=== PATIENT | male | born 1965 | race American Indian/Alaskan Native ===

== ENCOUNTER 2019-09-12 16:48 | Inpatient (IN) | payer MEDICAID ==
[2019-09-12] MEDS ORDERED: Sodium Chloride 0.9% 1,000 ML IV ONE ×2 (17:21→19:10)
[2019-09-12] MEDS ORDERED: Clindamycin Phosphate 900 MG in Sodium Chloride 0.9% 100 ML IV ONE (17:21)
--- NOTE | 2019-09-12 17:25 | EDM.PDOC ---
ED HPI GENERAL MEDICAL PROBLEM - General Chief Complaint: Skin Complaint Stated Complaint: AMB Time Seen by Provider: 09/12/19 17:22 Source of Information: Reports: Patient History Limitations: Reports: No Limitations - History of Present Illness INITIAL COMMENTS - FREE TEXT/NARRATIVE: c/o open sore on right foot ankle area from poorly fitting shoe while in skilled nursing. Right Foot Pain Score (Numeric/FACES): 8 - Related Data Allergies Allergy/AdvReac Type Severity Reaction Status Date / Time No Known Allergies Allergy Verified 09/12/19 17:05 Home Meds: Home Meds Aspirin [Ecotrin] 81 mg PO DAILY 06/11/18 [History] Carvedilol [Coreg] 25 mg PO DAILY 06/11/18 [History] Furosemide [Lasix] 20 mg PO DAILY 06/11/18 [History] Insulin Detemir [Levemir Flextouch] 50 units SQ BID 06/11/18 [History] Levothyroxine Sodium [Synthroid] 150 mcg PO DAILY 06/11/18 [History] Lisinopril 20 mg PO DAILY 06/11/18 [History] Pioglitazone HCl [Actos] 30 mg PO DAILY 06/11/18 [History] atorvaSTATin [Lipitor] 20 mg PO DAILY 06/11/18 [History] metFORMIN HCl [Metformin HCl] 1,000 mg PO BID 06/11/18 [History] Gabapentin [Neurontin] 300 mg PO BID 09/12/19 [History] Insulin Aspart [NovoLOG] 22 units SQ TID 09/12/19 [History] Past Medical History HEENT History: Reports: None Cardiovascular History: Reports: Heart Failure, High Cholesterol, Hypertension, Other (See Below) Other Cardiovascular History: CARDIAC PACEMAKER PLACED 03/2009. ISCHEMIC VASCULAR DISEASE. LV DYSFUNCTION Respiratory History: Reports: None Gastrointestinal History: Reports: None Genitourinary History: Reports: None Musculoskeletal History: Reports: Arthritis Neurological History: Reports: None Psychiatric History: Reports: None Endocrine/Metabolic History: Reports: Diabetes, Type II Hematologic History: Reports: None Immunologic History: Reports: None Oncologic (Cancer) History: Reports: None Dermatologic History: Reports: None - Infectious Disease History Infectious Disease History: Reports: None - Past Surgical History Cardiovascular Surgical History: Reports: Pacer Other Cardiovascular Surgeries/Procedures: PACEMAKER PLACED 03/2009 GI Surgical History: Reports: Colonoscopy Social & Family History - Family History Family Medical History: Noncontributory - Tobacco Use Smoking Status *Q: Never Smoker Second Hand Smoke Exposure: No - Caffeine Use Caffeine Use: Reports: Coffee - Recreational Drug Use Recreational Drug Use: No ED ROS GENERAL - Review of Systems Review Of Systems: Comprehensive ROS is negative, except as noted in HPI. ED EXAM, SKIN/RASH Exam: See Below Exam Limited By: No Limitations General Appearance: Alert, WD/WN, Mild Distress, Other (discomfort) Ears: Hearing Grossly Normal Throat/Mouth: Normal Voice, No Airway Compromise Head: Atraumatic Neck: Non-Tender, Full Range of Motion Respiratory/Chest: No Respiratory Distress Cardiovascular: Regular Rate, Rhythm GI/Abdominal: Soft, Non-Tender Extremities: Other (right ankle-foot cellulitis open dried wound, NV wnl, gait limited to pain) Neurological: Alert (wnl, gait limited to pain) Psychiatric: Flat Affect Location, Skin: Lower Extremity, Right Characteristics: Erythematous Associated features: Tenderness, Swelling, Lymphangitis, Inflammation Lymphatic: No Adenopathy Course - Vital Signs Last Recorded V/S: Last Vital Signs Temp 36.3 C 09/12/19 16:56 Pulse 99 09/12/19 16:56 Resp 22 H 09/12/19 16:56 BP 110/69 09/12/19 16:56 Pulse Ox 97 09/12/19 16:56 - Orders/Labs/Meds Orders: Active Orders 24 hr Category Date Time Status Foot w Cont Rt [CT] Urgent Exams 09/12/19 18:17 Taken CULTURE BLOOD [BC] Stat Lab 09/12/19 17:29 Received Piperacillin/Tazobactam [Zosyn] 3.375 gm Med 09/12/19 19:53 Ordered Sodium Chloride 0.9% [Normal Saline] 100 ml IV ONETIME Sodium Chloride 0.9% [Normal Saline] 1,000 ml Med 09/12/19 19:10 Active IV .BOLUS Vancomycin 1 gm Med 09/12/19 19:53 Ordered Sodium Chloride 0.9% [Normal Saline] 250 ml IV ONETIME Medication Orders Sodium Chloride (Normal Saline) 1,000 mls @ 999 mls/hr IV .BOLUS ONE Stop: 09/12/19 20:10 Last Admin: 09/12/19 19:14 Dose: 999 mls/hr Labs: Laboratory Tests 09/12/19 09/12/19 09/12/19 Range/Units 17:29 17:29 17:29 WBC 19.4 H (5.0-10.0) 10^3/uL RBC 4.69 (4.6-6.2) 10^6/uL Hgb 12.8 L D (14.0-18.0) g/dL Hct 38.1 L (40.0-54.0) % MCV 81.2 D (80-100) fL MCH 27.3 (27.0-34.0) pg MCHC 33.6 (33.0-35.0) g/dL Plt Count 166 (150-450) 10^3/uL Neut % (Auto) 85.8 H (42.2-75.2) % Lymph % (Auto) 4.3 L (20.5-50.1) % [place] % (Auto) 9.4 H (2-8) % Eos % (Auto) 0.1 L (1.0-3.0) % Baso % (Auto) 0.4 (0.0-1.0) % Add Manual Diff Yes Neutrophils % (Manual) 78 H (42-75) % Band Neutrophils % 9 % Lymphocytes % (Manual) 6 L (20-50) % Monocytes % (Manual) 7 (2-8) % Sodium 132 L (135-145) mmol/L Potassium 4.0 (3.6-5.0) mmol/L Chloride 97 L (101-111) mmol/L Carbon Dioxide 24.0 (21.0-31.0) mmol/L Anion Gap 15.0 BUN 15 (7-18) mg/dL Creatinine 1.0 (0.6-1.3) mg/dL Est Cr Clr Drug Dosing 92.69 mL/min Estimated GFR (MDRD) > 60 BUN/Creatinine Ratio 15.00 Glucose 364 H (74-105) mg/dL Lactic Acid 2.5 H* (0.5-2.0) mmol/L Calcium 8.1 L (8.4-10.2) mg/dl Total Bilirubin 1.3 H (0.2-1.0) mg/dL AST 25 (10-42) IU/L ALT 15 (10-60) IU/L Alkaline Phosphatase 92 (42-121) IU/L Total Protein 6.6 L (6.7-8.2) g/dl Albumin 2.9 L (3.2-5.5) g/dl Globulin 3.7 Albumin/Globulin Ratio 0.78 Meds: Medications Generic Name Dose Route Start Last Admin Trade Name Freq PRN Reason Stop Dose Admin Sodium Chloride 1,000 mls @ 999 mls/hr 09/12/19 19:10 09/12/19 19:14 Normal Saline IV 09/12/19 20:10 999 mls/hr .BOLUS ONE Administration Discontinued Medications Generic Name Dose Route Start Last Admin Trade Name Jamelq PRN Reason Stop Dose Admin Clindamycin Phosphate 900 mg/ 106 mls @ 200 mls/hr 09/12/19 17:21 09/12/19 17 :42 Sodium Chloride IV 09/12/19 17:52 200 mls/hr ONETIME ONE Administration Sodium Chloride 1,000 mls @ 999 mls/hr 09/12/19 17:21 09/12/19 17:46 Normal Saline IV 09/12/19 18:21 Not Given .BOLUS ONE Iopamidol 100 ml 09/12/19 18:16 09/12/19 18:31 Isovue-300 (61%) IVPUSH 09/12/19 18:17 100 ml ONETIME ONE Administration - Re-Assessments/Exams Free Text/Narrative Re-Assessment/Exam: 09/12/19 19:[address] Piña who kindly admitted pt Departure - Departure Time of Disposition: 19:54 Disposition: Admitted As Inpatient 66 Condition: Fair Clinical Impression: Cellulitis Qualifiers: Site of cellulitis: extremity Site of cellulitis of extremity: lower extremity Laterality: right Qualified Code(s): L03.115 - Cellulitis of right lower limb - Discharge Information Forms: ED Department Discharge Sepsis Event Note - Evaluation Sepsis Screening Result: Possible Severe Sepsis Risk - Focused Exam Vital Signs: Vital Signs Temp Pulse Resp BP Pulse Ox 09/12/19 16:56 36.3 C 99 22 H 110/69 97 Date Exam was Performed: 09/12/19 Time Exam was Performed: 19:54 - My Orders Last 24 Hours: My Active Orders 09/12/19 17:29 CULTURE BLOOD [BC] Stat 09/12/19 18:17 Foot w Cont Rt [CT] Urgent 09/12/19 19:10 Sodium Chloride 0.9% [Normal Saline] 1,000 ml IV .BOLUS 09/12/19 19:53 Piperacillin/Tazobactam [Zosyn] 3.375 gm Sodium Chloride 0.9% [Normal Saline] 100 ml IV ONETIME Vancomycin 1 gm Sodium Chloride 0.9% [Normal Saline] 250 ml IV ONETIME - Assessment/Plan Last 24 Hours: My Active Orders 09/12/19 17:29 CULTURE BLOOD [BC] Stat 09/12/19 18:17 Foot w Cont Rt [CT] Urgent 09/12/19 19:10 Sodium Chloride 0.9% [Normal Saline] 1,000 ml IV .BOLUS 09/12/19 19:53 Piperacillin/Tazobactam [Zosyn] 3.375 gm Sodium Chloride 0.9% [Normal Saline] 100 ml IV ONETIME Vancomycin 1 gm Sodium Chloride 0.9% [Normal Saline] 250 ml IV ONETIME
[2019-09-12 17:55] LABS: CHLORIDE,CL 97 mmol/L (101-111); SODIUM,NA 132 mmol/L (135-145)
[2019-09-12] MEDS ORDERED: Iopamidol 612 MG/ML 100 ML Bottle IVPUSH ONE (18:16)
[2019-09-12] MEDS ORDERED: Piperacillin/Tazobactam 3.375 GM in Sodium Chloride 0.9% 100 ML IV ONE (19:53)
[2019-09-12] MEDS ORDERED: fentaNYL 100 MCG/2 ML SDV IVPUSH PRN (21:17)
[2019-09-12] MEDS ORDERED: Ondansetron 4 MG/2 ML SDV IV PRN (21:17)
[2019-09-12] MEDS ORDERED: Sodium Chloride 0.9% 10 ML Syringe FLUSH PRN (21:18)
--- NOTE | 2019-09-12 21:44 | PCM.HP ---
H&P History of Present Illness - General Date of Service: 09/12/19 Admit Problem/Dx: Admission Diagnosis/Problem Admission Diagnosis/Problem Sepsis Source of Information: Patient History Limitations: Reports: No Limitations - History of Present Illness Initial Comments - Free Text/Narative: 54 yo M with PMH of DM2, HTN who presents with right lateral malleolus wound. Wound is chronic and has been ongoing for the past three weeks. Wound was caused by tight footwear that caused skin abrasion according to the patient. In the last two days, the wound has worsened with black discoloration over the wound and redness, swelling and pain in the surrounding skin. No fever, chills, chest pain, SOB, abdominal pain, n/v, urinary symptoms. In the ED, patient was found to have marked leucocytosis and broad spectrum abx were started. Right Foot Pain Score (Numeric/FACES): 8 - Related Data Allergies/Adverse Reactions: Allergies Allergy/AdvReac Type Severity Reaction Status Date / Time No Known Allergies Allergy Verified 09/12/19 20:42 Home Medications: Home Meds Aspirin [Ecotrin] 81 mg PO DAILY 06/11/18 [History] Carvedilol [Coreg] 25 mg PO DAILY 06/11/18 [History] Furosemide [Lasix] 20 mg PO DAILY 06/11/18 [History] Insulin Detemir [Levemir Flextouch] 50 units SQ BID 06/11/18 [History] Levothyroxine Sodium [Synthroid] 150 mcg PO DAILY 06/11/18 [History] Lisinopril 20 mg PO DAILY 06/11/18 [History] Pioglitazone HCl [Actos] 30 mg PO DAILY 06/11/18 [History] atorvaSTATin [Lipitor] 20 mg PO DAILY 06/11/18 [History] metFORMIN HCl [Metformin HCl] 1,000 mg PO BID 06/11/18 [History] Gabapentin [Neurontin] 300 mg PO TID 09/12/19 [History] Insulin Aspart [NovoLOG] 22 units SQ TID 09/12/19 [History] Past Medical History HEENT History: Reports: None Cardiovascular History: Reports: Heart Failure, High Cholesterol, Hypertension, Other (See Below) Other Cardiovascular History: CARDIAC PACEMAKER PLACED 03/2009. ISCHEMIC VASCULAR DISEASE. LV DYSFUNCTION Respiratory History: Reports: None Gastrointestinal History: Reports: None Genitourinary History: Reports: None Musculoskeletal History: Reports: Arthritis Neurological History: Reports: None Psychiatric History: Reports: None Endocrine/Metabolic History: Reports: Diabetes, Type II Hematologic History: Reports: None Immunologic History: Reports: None Oncologic (Cancer) History: Reports: None Dermatologic History: Reports: None - Infectious Disease History Infectious Disease History: Reports: None - Past Surgical History Cardiovascular Surgical History: Reports: Pacer Other Cardiovascular Surgeries/Procedures: PACEMAKER PLACED 03/2009 GI Surgical History: Reports: Colonoscopy Social & Family History - Family History Family Medical History: Noncontributory - Tobacco Use Smoking Status *Q: Former Smoker Years of Tobacco use: 1 Packs/Tins Daily: 1 Used Tobacco, but Quit: Yes Month/Year Tobacco Last Used: Second Hand Smoke Exposure: Yes - Caffeine Use Caffeine Use: Reports: None - Recreational Drug Use Recreational Drug Use: No H&P Review of Systems - Review of Systems: Review Of Systems: See Below General: Reports: No Symptoms HEENT: Reports: No Symptoms Pulmonary: Reports: No Symptoms Cardiovascular: Reports: No Symptoms Gastrointestinal: Reports: No Symptoms Genitourinary: Reports: No Symptoms Musculoskeletal: Reports: Other (right ankle wound) Skin: Reports: Wound Psychiatric: Reports: No Symptoms Neurological: Reports: No Symptoms Exam - Exam Exam: See Below - Vital Signs Vital Signs: Last Vital Signs Temp 36.4 C 09/12/19 20:26 Pulse 87 09/12/19 20:26 Resp 16 09/12/19 20:26 BP 113/74 09/12/19 20:26 Pulse Ox 98 09/12/19 20:26 Weight: 93.213 kg - Exam General: Alert, Oriented HEENT: Conjunctiva Clear, EACs Clear Neck: Supple, Trachea Midline Lungs: Clear to Auscultation, Normal Respiratory Effort Cardiovascular: Regular Rate, Regular Rhythm GI/Abdominal Exam: Normal Bowel Sounds, Soft, Non-Tender Extremities: Other (right lateral malleolus wound with eschar over the wound surface and surrounding cellulitis) Skin: Wound (right lateral malleolus wound with eschar over the wound surface and surrounding cellulitis) - Patient Data Lab Results Last 24 hrs: Laboratory Results - last 24 hr 09/12/19 09/12/19 09/12/19 Range/Units 17:29 17:29 17:29 WBC 19.4 H (5.0-10.0) 10^3/uL RBC 4.69 (4.6-6.2) 10^6/uL Hgb 12.8 L D (14.0-18.0) g/dL Hct 38.1 L (40.0-54.0) % MCV 81.2 D (80-100) fL MCH 27.3 (27.0-34.0) pg MCHC 33.6 (33.0-35.0) g/dL Plt Count 166 (150-450) 10^3/uL Neut % (Auto) 85.8 H (42.2-75.2) % Lymph % (Auto) 4.3 L (20.5-50.1) % [place] % (Auto) 9.4 H (2-8) % Eos % (Auto) 0.1 L (1.0-3.0) % Baso % (Auto) 0.4 (0.0-1.0) % Add Manual Diff Yes Neutrophils % (Manual) 78 H (42-75) % Band Neutrophils % 9 % Lymphocytes % (Manual) 6 L (20-50) % Monocytes % (Manual) 7 (2-8) % Sodium 132 L (135-145) mmol/L Potassium 4.0 (3.6-5.0) mmol/L Chloride 97 L (101-111) mmol/L Carbon Dioxide 24.0 (21.0-31.0) mmol/L Anion Gap 15.0 BUN 15 (7-18) mg/dL Creatinine 1.0 (0.6-1.3) mg/dL Est Cr Clr Drug Dosing 92.69 mL/min Estimated GFR (MDRD) > 60 BUN/Creatinine Ratio 15.00 Glucose 364 H (74-105) mg/dL POC Glucose (70-105) mg/dl Lactic Acid 2.5 H* (0.5-2.0) mmol/L Calcium 8.1 L (8.4-10.2) mg/dl Total Bilirubin 1.3 H (0.2-1.0) mg/dL AST 25 (10-42) IU/L ALT 15 (10-60) IU/L Alkaline Phosphatase 92 (42-121) IU/L Total Protein 6.6 L (6.7-8.2) g/dl Albumin 2.9 L (3.2-5.5) g/dl Globulin 3.7 Albumin/Globulin Ratio 0.78 09/12/19 Range/Units 20:53 WBC (5.0-10.0) 10^3/uL RBC (4.6-6.2) 10^6/uL Hgb (14.0-18.0) g/dL Hct (40.0-54.0) % MCV (80-100) fL MCH (27.0-34.0) pg MCHC (33.0-35.0) g/dL Plt Count (150-450) 10^3/uL Neut % (Auto) (42.2-75.2) % Lymph % (Auto) (20.5-50.1) % [place] % (Auto) (2-8) % Eos % (Auto) (1.0-3.0) % Baso % (Auto) (0.0-1.0) % Add Manual Diff Neutrophils % (Manual) (42-75) % Band Neutrophils % % Lymphocytes % (Manual) (20-50) % Monocytes % (Manual) (2-8) % Sodium (135-145) mmol/L Potassium (3.6-5.0) mmol/L Chloride (101-111) mmol/L Carbon Dioxide (21.0-31.0) mmol/L Anion Gap BUN (7-18) mg/dL Creatinine (0.6-1.3) mg/dL Est Cr Clr Drug Dosing mL/min Estimated GFR (MDRD) BUN/Creatinine Ratio Glucose (74-105) mg/dL POC Glucose 308 H (70-105) mg/dl Lactic Acid (0.5-2.0) mmol/L Calcium (8.4-10.2) mg/dl Total Bilirubin (0.2-1.0) mg/dL AST (10-42) IU/L ALT (10-60) IU/L Alkaline Phosphatase (42-121) IU/L Total Protein (6.7-8.2) g/dl Albumin (3.2-5.5) g/dl Globulin Albumin/Globulin Ratio Result Diagrams: 09/12/19 17:29 09/12/19 17:29 Problem List Initiated/Reviewed/Updated: Yes Orders Last 24hrs: Active Orders 24 hr Category Date Time Status Admission Diagnosis [ADT] Stat ADT 09/12/19 19:56 Ordered Patient Status [ADT] Routine ADT 09/12/19 21:18 Active Accu Check [Blood Glucose Check, Bedside] [RC] Care 09/12/19 21:18 Active QIDACANDBED Ambulate [RC] ASDIRECTED Care 09/12/19 21:18 Active Height and Weight [RC] DAILY Care 09/12/19 21:18 Active Influenza Vaccine Charge [RC] .DISCHARGE Care 09/14/19 09:00 Active Oxygen Therapy [RC] PRN Care 09/12/19 21:18 Active Peripheral IV Care [RC] . DIRECTED Care 09/12/19 21:18 Active Up With Assistance [RC] ASDIRECTED Care 09/12/19 21:18 Active VTE/DVT Education [RC] PER UNIT ROUTINE Care 09/12/19 21:18 Active Vital Signs [RC] Q4H Care 09/12/19 21:18 Active Wound Care [RC] Q8H Care 09/12/19 21:26 Active Regular Diet [DIET] Diet 09/12/19 Breakfast Active Foot w Cont Rt [CT] Urgent Exams 09/12/19 18:17 Taken BASIC METABOLIC PANEL,BMP [CHEM] AM Lab 09/13/19 05:11 Ordered BASIC METABOLIC PANEL,BMP [CHEM] AM Lab 09/14/19 05:11 Ordered BASIC METABOLIC PANEL,BMP [CHEM] AM Lab 09/15/19 05:11 Ordered CBC W/O DIFF,HEMOGRAM [HEME] AM Lab 09/13/19 05:11 Ordered CBC W/O DIFF,HEMOGRAM [HEME] AM Lab 09/14/19 05:11 Ordered CBC W/O DIFF,HEMOGRAM [HEME] AM Lab 09/15/19 05:11 Ordered CULTURE BLOOD [BC] Stat Lab 09/12/19 17:29 Received CULTURE WOUND + SMEAR [RM] Routine Lab 09/12/19 21:33 Ordered LACTIC ACID [CHEM] Routine Lab 09/12/19 21:18 Ordered MAGNESIUM [CHEM] AM Lab 09/13/19 05:11 Ordered MAGNESIUM [CHEM] AM Lab 09/14/19 05:11 Ordered MAGNESIUM [CHEM] AM Lab 09/15/19 05:11 Ordered PHOSPHORUS [CHEM] AM Lab 09/13/19 05:11 Ordered PHOSPHORUS [CHEM] AM Lab 09/14/19 05:11 Ordered PHOSPHORUS [CHEM] AM Lab 09/15/19 05:11 Ordered Acetaminophen [Tylenol] Med 09/12/19 21:17 Active 650 mg PO Q4H PRN Aspirin [Halfprin] Med 09/13/19 09:00 Ordered 81 mg PO DAILY Enoxaparin [Lovenox] Med 09/13/19 09:00 Ordered 40 mg SUBCUT DAILY Furosemide [Lasix] Med 09/13/19 09:00 Ordered 20 mg PO DAILY Gabapentin [Neurontin] Med 09/13/19 09:00 Ordered 300 mg PO TID Insulin Aspart [NovoLOG] Med 09/13/19 09:00 Ordered 22 units SQ TID Insulin Detemir Med 09/12/19 21:30 Ordered 50 units SQ BID Insulin Lispro [HumaLOG] Med 09/13/19 07:00 Ordered See Protocol SUBCUT QIDACANDBED Levothyroxine Med 09/13/19 09:00 Ordered 150 mcg PO DAILY Ondansetron [Zofran] Med 09/12/19 21:17 Active 4 mg IV Q4H PRN Pharmacy to Dose - InFluenza V [Pharmacy to Dose - Med 09/14/19 09:00 Once InFluenza Vaccine] 1 each IM ONETIME ONE Piperacillin/Tazobactam [Zosyn] 3.375 gm Med 09/12/19 21:30 Ordered Sodium Chloride 0.9% [Normal Saline] 100 ml IV Q6H Sodium Chloride 0.9% [Normal Saline] 1,000 ml Med 09/12/19 21:30 Active IV ASDIRECTED Sodium Chloride 0.9% [Saline Flush] Med 09/12/19 21:18 Active 10 ml FLUSH ASDIRECTED PRN Sodium Chloride 0.9% [Saline Flush] Med 09/12/19 21:18 Active 10 ml FLUSH ASDIRECTED PRN atorvaSTATin [Lipitor] Med 09/13/19 09:00 Ordered 20 mg PO DAILY carvediloL [Coreg] Med 09/13/19 09:00 Ordered 25 mg PO DAILY fentaNYL [Sublimaze] Med 09/12/19 21:17 Active 25 mcg IVPUSH Q1H PRN lisinopriL [Prinivil] Med 09/13/19 09:00 Ordered 20 mg PO DAILY oxyCODONE Med 09/12/19 21:18 Active 5 mg PO Q4H PRN Peripheral IV Insertion Adult [OM.PC] Routine Oth 09/12/19 21:18 Ordered Saline Lock Insert [OM.PC] Routine Oth 09/12/19 21:18 Ordered Resuscitation Status Routine Resus Stat 09/12/19 21:18 Ordered Medication Orders Acetaminophen (Tylenol) 650 mg PO Q4H PRN PRN Reason: Pain/Fever Aspirin (Halfprin) 81 mg PO DAILY [facility] Atorvastatin Calcium (Lipitor) 20 mg PO DAILY [facility] Carvedilol (Coreg) 25 mg PO DAILY [facility] Enoxaparin Sodium (Lovenox) 40 mg SUBCUT DAILY [facility] Fentanyl (Sublimaze) 25 mcg IVPUSH Q1H PRN PRN Reason: Pain (severe 7-10) Furosemide (Lasix) 20 mg PO DAILY [facility] Gabapentin (Neurontin) 300 mg PO TID [facility] Sodium Chloride (Normal Saline) 1,000 mls @ 100 mls/hr IV ASDIRECTED JESUS ALBERTO Piperacillin Sod/Tazobactam (Sod 3.375 gm/ Sodium Chloride) 100 mls @ 200 mls/ hr IV Q6H [facility] Influenza Virus Vaccine (Pharmacy To Dose - Influenza Vaccine) 1 each IM ONETIME ONE Stop: 09/14/19 09:01 Insulin Human Lispro (Humalog) 0 unit SUBCUT QIDACANDBED [facility]; Protocol Levothyroxine Sodium (Levothyroxine) 150 mcg PO DAILY [facility] Lisinopril (Prinivil) 20 mg PO DAILY [facility] Non-Formulary Medication (Insulin Detemir) 50 units SQ BID [facility] Non-Formulary Medication (Insulin Aspart [Novolog]) 22 units SQ TID [facility] Ondansetron HCl (Zofran) 4 mg IV Q4H PRN PRN Reason: Nausea/Vomiting Oxycodone HCl (Oxycodone) 5 mg PO Q4H PRN PRN Reason: Pain (moderate 4-6) Sodium Chloride (Saline Flush) 10 ml FLUSH ASDIRECTED PRN PRN Reason: Keep Vein Open Sodium Chloride (Saline Flush) 10 ml FLUSH ASDIRECTED PRN PRN Reason: Keep Vein Open Assessment/Plan Comment:: #Cellulitis #Sepsis: leucocytosis, tachycardia, lactic acidosis #diabetic wound -f/u blood cx -f/u on report of CT scan: no osteomyelitis -check wound cx -IV abx: Vanc + Zosyn -IV fluid hydration -wound care: wet to dry dressing Q8 hrs -will monitor wound over the next few days and if it does not improve, will refer to plastic surgery #DM2 #Hyperglycemia -accuchecks, ISS -carb controlled diet -continue home insulin regimen -hold metformin, pioglitazone #HTN -continue lisinopril 20 mg daily [home medication] #Hypothyroidism -continue home dose of levothyroxine #DVT ppx -SC lovenox #Code status -FC
[2019-09-12] MEDS: Insulin Glarg,Human.Rec.Analog 100 Unit/ML SUBCUT SCH (21:57)
[2019-09-12] MEDS: Sodium Chloride 0.9% 1,000 ML IV SCH (22:16)
[2019-09-13] MEDS: Piperacillin/Tazobactam 3.375 GM in Sodium Chloride 0.9% 100 ML IV SCH ×4 (01:34→19:40)
[2019-09-13] MEDS: oxyCODONE 5 MG Tab PO PRN ×3 (01:40→21:22)
[2019-09-13 06:42] LABS: ANION GAP 12.6; CHLORIDE,CL 101 mmol/L (101-111); SODIUM,NA 134 mmol/L (135-145)
[2019-09-13] MEDS: Insulin Lispro 100 Units/ML 3 ML Vial SUBCUT SCH ×8 (08:55→21:21)
[2019-09-13] MEDS ORDERED: Carvedilol 25 MG Tab PO SCH (09:00)
[2019-09-13] MEDS: Sodium Chloride 0.9% 1,000 ML IV SCH ×2 (09:06→21:54)
[2019-09-13] MEDS: Gabapentin 300 MG Cap PO SCH ×3 (09:08→21:21)
[2019-09-13] MEDS: atorvaSTATin 20 MG Tab PO SCH (09:08)
[2019-09-13] MEDS: Lisinopril 20 MG Tab PO SCH (09:08)
[2019-09-13] MEDS: Levothyroxine 150 MCG Tab PO SCH (09:08)
[2019-09-13] MEDS: Furosemide 20 MG Tab PO SCH (09:09)
[2019-09-13] MEDS: Carvedilol 25 MG Tab PO SCH ×2 (09:10→17:57)
[2019-09-13] MEDS: Aspirin 81 MG Tab.EC PO SCH (09:11)
--- NOTE | 2019-09-13 10:56 | PCM.PN ---
- General Info Date of Service: 09/13/19 Admission Dx/Problem (Free Text): Admission Diagnosis/Problem Admission Diagnosis/Problem Sepsis Subjective Update: Patient seen and examined Leucocytosis improved from admission Getting abx and wound dressing No chest pain, no fever, no SOB - Review of Systems General: Denies: Fever HEENT: Reports: No Symptoms Pulmonary: Reports: No Symptoms Cardiovascular: Reports: No Symptoms Gastrointestinal: Reports: No Symptoms Genitourinary: Reports: No Symptoms Musculoskeletal: Reports: Leg Pain Skin: Reports: Rash Neurological: Reports: No Symptoms Psychiatric: Reports: No Symptoms - Patient Data Vitals - Most Recent: Last Vital Signs Temp 37.3 C 09/13/19 07:34 Pulse 103 H 09/13/19 09:10 Resp 18 09/13/19 07:34 BP 107/72 09/13/19 09:10 Pulse Ox 97 09/13/19 07:34 Weight - Most Recent: 94.489 kg I&O - Last 24 Hours: Intake & Output 09/12/19 09/13/19 09/13/19 22:59 06:59 14:59 Intake Total 1600 1152 340 Output Total 680 Balance 1600 472 340 Lab Results Last 24 Hours: Laboratory Results - last 24 hr 09/12/19 09/12/19 09/12/19 Range/Units 17:29 17:29 17:29 WBC 19.4 H (5.0-10.0) 10^3/uL RBC 4.69 (4.6-6.2) 10^6/uL Hgb 12.8 L D (14.0-18.0) g/dL Hct 38.1 L (40.0-54.0) % MCV 81.2 D (80-100) fL MCH 27.3 (27.0-34.0) pg MCHC 33.6 (33.0-35.0) g/dL Plt Count 166 (150-450) 10^3/uL Neut % (Auto) 85.8 H (42.2-75.2) % Lymph % (Auto) 4.3 L (20.5-50.1) % [place] % (Auto) 9.4 H (2-8) % Eos % (Auto) 0.1 L (1.0-3.0) % Baso % (Auto) 0.4 (0.0-1.0) % Add Manual Diff Yes Neutrophils % (Manual) 78 H (42-75) % Band Neutrophils % 9 % Lymphocytes % (Manual) 6 L (20-50) % Monocytes % (Manual) 7 (2-8) % Sodium 132 L (135-145) mmol/L Potassium 4.0 (3.6-5.0) mmol/L Chloride 97 L (101-111) mmol/L Carbon Dioxide 24.0 (21.0-31.0) mmol/L Anion Gap 15.0 BUN 15 (7-18) mg/dL Creatinine 1.0 (0.6-1.3) mg/dL Est Cr Clr Drug Dosing 92.69 mL/min Estimated GFR (MDRD) > 60 BUN/Creatinine Ratio 15.00 Glucose 364 H (74-105) mg/dL POC Glucose (70-105) mg/dl Lactic Acid 2.5 H* (0.5-2.0) mmol/L Calcium 8.1 L (8.4-10.2) mg/dl Phosphorus (2.5-4.6) mg/dL Magnesium (1.8-2.5) mg/dL Total Bilirubin 1.3 H (0.2-1.0) mg/dL AST 25 (10-42) IU/L ALT 15 (10-60) IU/L Alkaline Phosphatase 92 (42-121) IU/L Total Protein 6.6 L (6.7-8.2) g/dl Albumin 2.9 L (3.2-5.5) g/dl Globulin 3.7 Albumin/Globulin Ratio 0.78 09/12/19 09/12/19 09/13/19 Range/Units 20:53 21:35 05:30 WBC 16.0 H (5.0-10.0) 10^3/uL RBC 4.40 L (4.6-6.2) 10^6/uL Hgb 12.0 L (14.0-18.0) g/dL Hct 35.6 L (40.0-54.0) % MCV 80.9 (80-100) fL MCH 27.3 (27.0-34.0) pg MCHC 33.7 (33.0-35.0) g/dL Plt Count 175 (150-450) 10^3/uL Neut % (Auto) (42.2-75.2) % Lymph % (Auto) (20.5-50.1) % [place] % (Auto) (2-8) % Eos % (Auto) (1.0-3.0) % Baso % (Auto) (0.0-1.0) % Add Manual Diff Neutrophils % (Manual) (42-75) % Band Neutrophils % % Lymphocytes % (Manual) (20-50) % Monocytes % (Manual) (2-8) % Sodium (135-145) mmol/L Potassium (3.6-5.0) mmol/L Chloride (101-111) mmol/L Carbon Dioxide (21.0-31.0) mmol/L Anion Gap BUN (7-18) mg/dL Creatinine (0.6-1.3) mg/dL Est Cr Clr Drug Dosing mL/min Estimated GFR (MDRD) BUN/Creatinine Ratio Glucose (74-105) mg/dL POC Glucose 308 H (70-105) mg/dl Lactic Acid 1.4 (0.5-2.0) mmol/L Calcium (8.4-10.2) mg/dl Phosphorus (2.5-4.6) mg/dL Magnesium (1.8-2.5) mg/dL Total Bilirubin (0.2-1.0) mg/dL AST (10-42) IU/L ALT (10-60) IU/L Alkaline Phosphatase (42-121) IU/L Total Protein (6.7-8.2) g/dl Albumin (3.2-5.5) g/dl Globulin Albumin/Globulin Ratio 09/13/19 09/13/19 Range/Units 05:30 07:50 WBC (5.0-10.0) 10^3/uL RBC (4.6-6.2) 10^6/uL Hgb (14.0-18.0) g/dL Hct (40.0-54.0) % MCV (80-100) fL MCH (27.0-34.0) pg MCHC (33.0-35.0) g/dL Plt Count (150-450) 10^3/uL Neut % (Auto) (42.2-75.2) % Lymph % (Auto) (20.5-50.1) % [place] % (Auto) (2-8) % Eos % (Auto) (1.0-3.0) % Baso % (Auto) (0.0-1.0) % Add Manual Diff Neutrophils % (Manual) (42-75) % Band Neutrophils % % Lymphocytes % (Manual) (20-50) % Monocytes % (Manual) (2-8) % Sodium 134 L (135-145) mmol/L Potassium 3.6 (3.6-5.0) mmol/L Chloride 101 (101-111) mmol/L Carbon Dioxide 24.0 (21.0-31.0) mmol/L Anion Gap 12.6 BUN 15 (7-18) mg/dL Creatinine 0.8 (0.6-1.3) mg/dL Est Cr Clr Drug Dosing 115.86 mL/min Estimated GFR (MDRD) > 60 BUN/Creatinine Ratio Glucose 274 H (74-105) mg/dL POC Glucose 225 H (70-105) mg/dl Lactic Acid (0.5-2.0) mmol/L Calcium 7.8 L (8.4-10.2) mg/dl Phosphorus 1.2 L (2.5-4.6) mg/dL Magnesium 1.7 L (1.8-2.5) mg/dL Total Bilirubin (0.2-1.0) mg/dL AST (10-42) IU/L ALT (10-60) IU/L Alkaline Phosphatase (42-121) IU/L Total Protein (6.7-8.2) g/dl Albumin (3.2-5.5) g/dl Globulin Albumin/Globulin Ratio Osmel Results Last 24 Hours: Microbiology 09/12/19 21:36 Gram Stain - Final Ankle, Right Med Orders - Current: Current Medications Acetaminophen (Tylenol) 650 mg PO Q4H PRN PRN Reason: Pain/Fever Aspirin (Halfprin) 81 mg PO DAILY [facility] Last Admin: 09/13/19 09:11 Dose: 81 mg Atorvastatin Calcium (Lipitor) 20 mg PO DAILY [facility] Last Admin: 09/13/19 09:08 Dose: 20 mg Carvedilol (Coreg) 12.5 mg PO BIDMEALS [facility] Last Admin: 09/13/19 09:10 Dose: 12.5 mg Enoxaparin Sodium (Lovenox) 40 mg SUBCUT DAILY [facility] Fentanyl (Sublimaze) 25 mcg IVPUSH Q1H PRN PRN Reason: Pain (severe 7-10) Furosemide (Lasix) 20 mg PO DAILY [facility] Last Admin: 09/13/19 09:09 Dose: 20 mg Gabapentin (Neurontin) 300 mg PO TID [facility] Last Admin: 09/13/19 09:08 Dose: 300 mg Sodium Chloride (Normal Saline) 1,000 mls @ 100 mls/hr IV ASDIRECTED [facility] Last Admin: 09/13/19 09:06 Dose: 100 mls/hr Piperacillin Sod/Tazobactam (Sod 3.375 gm/ Sodium Chloride) 100 mls @ 200 mls/ hr IV Q6H [facility] Last Admin: 09/13/19 08:58 Dose: 200 mls/hr Insulin Glargine (Lantus) 30 unit SUBCUT BEDTIME [facility] Insulin Human Lispro (Humalog) 0 unit SUBCUT QIDACANDBED [facility]; Protocol Insulin Human Lispro (Humalog) 22 unit SUBCUT TIDMEALS [facility] Last Admin: 09/13/19 08:55 Dose: 22 units Levothyroxine Sodium (Levothyroxine) 150 mcg PO DAILY [facility] Last Admin: 09/13/19 09:08 Dose: 150 mcg Lisinopril (Prinivil) 20 mg PO DAILY [facility] Last Admin: 09/13/19 09:08 Dose: 20 mg Ondansetron HCl (Zofran) 4 mg IV Q4H PRN PRN Reason: Nausea/Vomiting Oxycodone HCl (Oxycodone) 5 mg PO Q4H PRN PRN Reason: Pain (moderate 4-6) Last Admin: 09/13/19 09:50 Dose: 5 mg Sodium Chloride (Saline Flush) 10 ml FLUSH ASDIRECTED PRN PRN Reason: Keep Vein Open Sodium Phosphate (Neutra-Phos) 250 mg PO QID [facility] Discontinued Medications Carvedilol (Coreg) 25 mg PO DAILY [facility] Clindamycin Phosphate 900 mg/ (Sodium Chloride) 106 mls @ 200 mls/hr IV ONETIME ONE Stop: 09/12/19 17:52 Last Admin: 09/12/19 17:42 Dose: 200 mls/hr Sodium Chloride (Normal Saline) 1,000 mls @ 999 mls/hr IV .BOLUS ONE Stop: 09/12/19 18:21 Last Admin: 09/12/19 17:46 Dose: Not Given Sodium Chloride (Normal Saline) 1,000 mls @ 999 mls/hr IV .BOLUS ONE Stop: 09/12/19 20:10 Last Infusion: 09/12/19 20:16 Dose: Infused Piperacillin Sod/Tazobactam (Sod 3.375 gm/ Sodium Chloride) 100 mls @ 200 mls/ hr IV ONETIME ONE Stop: 09/12/19 20:22 Last Admin: 09/12/19 21:59 Dose: 200 mls/hr Vancomycin HCl 1 gm/ Sodium (Chloride) 250 mls @ 167 mls/hr IV ONETIME ONE Stop: 09/12/19 21:22 Last Admin: 09/12/19 20:18 Dose: 167 mls/hr Magnesium Sulfate/Dextrose 1 (gm/ Premix) 100 mls @ 100 mls/hr IV ONETIME ONE Stop: 09/13/19 09:31 Influenza Virus Vaccine (Afluria Quad 2019- (3yr Up)) 60 mcg IM .ONCE ONE Stop: 09/13/19 09:01 Insulin Glargine (Lantus) 50 unit SUBCUT BID [facility] Last Admin: 09/12/19 21:57 Dose: 50 units Iopamidol (Isovue-300 (61%)) 100 ml IVPUSH ONETIME ONE Stop: 09/12/19 18:17 Last Admin: 09/12/19 18:31 Dose: 100 ml Sodium Chloride (Saline Flush) 10 ml FLUSH ASDIRECTED PRN PRN Reason: Keep Vein Open - Exam General: Alert, Oriented HEENT: Pupils Equal Neck: Supple Lungs: Clear to Auscultation, Normal Respiratory Effort Cardiovascular: Regular Rate, Regular Rhythm GI/Abdominal Exam: Normal Bowel Sounds, Soft, Non-Tender Extremities: Redness Wound/Incisions: Dressing Dry and Intact Neurological: No New Focal Deficit Sepsis Event Note - Evaluation Sepsis Screening Result: Sepsis Risk - Focused Exam Vital Signs: Vital Signs Temp Pulse Pulse Resp BP BP BP 09/13/19 09:10 103 H 107/72 09/13/19 09:08 107/72 09/13/19 07:34 37.3 C 103 H 18 107/72 09/13/19 05:15 38.1 C 113 H 16 112/81 Pulse Ox 09/13/19 09:10 09/13/19 09:08 09/13/19 07:34 97 09/13/19 05:15 95 Date Exam was Performed: 09/13/19 Time Exam was Performed: 10:54 - Problem List Review Problem List Initiated/Reviewed/Updated: Yes - My Orders Last 24 Hours: My Active Orders 09/12/19 21:17 Acetaminophen [Tylenol] 650 mg PO Q4H PRN Ondansetron [Zofran] 4 mg IV Q4H PRN fentaNYL [Sublimaze] 25 mcg IVPUSH Q1H PRN 09/12/19 21:18 Patient Status [ADT] Routine Accu Check [Blood Glucose Check, Bedside] [RC] QIDACANDBED Height and Weight [RC] 0600 Oxygen Therapy [RC] PRN Peripheral IV Care [RC] VTE/DVT Education [RC] PER UNIT ROUTINE Vital Signs [RC] 04,08,12,16,20,00 Sodium Chloride 0.9% [Saline Flush] 10 ml FLUSH ASDIRECTED PRN oxyCODONE 5 mg PO Q4H PRN Peripheral IV Insertion Adult [OM.PC] Routine Saline Lock Insert [OM.PC] Routine Resuscitation Status Routine 09/12/19 21:26 Wound Care [RC] 05,13,21 09/12/19 21:30 Sodium Chloride 0.9% [Normal Saline] 1,000 ml IV ASDIRECTED 09/12/19 21:36 CULTURE WOUND + SMEAR [RM] Routine 09/13/19 02:00 Piperacillin/Tazobactam [Zosyn] 3.375 gm Sodium Chloride 0.9% [Normal Saline] 100 ml IV Q6H 09/13/19 07:00 Insulin Lispro [HumaLOG] See Protocol SUBCUT QIDACANDBED 09/13/19 08:00 carvediloL [Coreg] 12.5 mg PO BIDMEALS 09/13/19 09:00 Aspirin [Halfprin] 81 mg PO DAILY Enoxaparin [Lovenox] 40 mg SUBCUT DAILY Furosemide [Lasix] 20 mg PO DAILY Gabapentin [Neurontin] 300 mg PO TID Insulin Lispro [HumaLOG] 22 unit SUBCUT TIDMEALS Levothyroxine 150 mcg PO DAILY Phosphorus #1 [Neutra-Phos] 250 mg PO QID atorvaSTATin [Lipitor] 20 mg PO DAILY lisinopriL [Prinivil] 20 mg PO DAILY 09/13/19 21:00 Insulin Glarg,Human.Rec.Analog [LantUS] 30 unit SUBCUT BEDTIME 09/13/19 Breakfast Consistent Carbohydrate Diet [DIET] 09/14/19 05:11 BASIC METABOLIC PANEL,BMP [CHEM] AM CBC W/O DIFF,HEMOGRAM [HEME] AM MAGNESIUM [CHEM] AM PHOSPHORUS [CHEM] AM 09/14/19 09:00 Influenza Vaccine Charge [RC] .DISCHARGE 09/15/19 05:11 BASIC METABOLIC PANEL,BMP [CHEM] AM CBC W/O DIFF,HEMOGRAM [HEME] AM MAGNESIUM [CHEM] AM PHOSPHORUS [CHEM] AM - Plan Plan:: #Cellulitis #Sepsis POA: leucocytosis, tachycardia, lactic acidosis (resolved) #diabetic wound -f/u blood cx -CT scan: no osteomyelitis -check wound cx -IV abx: Vanc + Zosyn -IV fluid hydration -wound care: wet to dry dressing Q8 hrs -will monitor wound over the next few days and if it does not improve, will refer to plastic surgery #DM2 #Hyperglycemia -accuchecks, ISS -carb controlled diet -continue home insulin regimen -hold metformin, pioglitazone #HTN -continue lisinopril 20 mg daily [home medication] #Hypothyroidism -continue home dose of levothyroxine #DVT ppx -SC lovenox #Code status -FC
[2019-09-13] MEDS: Insulin Glarg,Human.Rec.Analog 100 Unit/ML SUBCUT SCH ×2 (11:03→21:48)
[2019-09-13] MEDS: Phosphorus #1 250 MG Tab PO SCH ×4 (11:23→21:48)
[2019-09-13] MEDS: Enoxaparin 40 MG/0.4 ML Syringe SUBCUT SCH (11:25)
[2019-09-13] MEDS: Acetaminophen 325 MG Tab PO PRN (21:24)
[2019-09-14] MEDS: Piperacillin/Tazobactam 3.375 GM in Sodium Chloride 0.9% 100 ML IV SCH ×4 (02:31→20:07)
[2019-09-14 06:52] LABS: ANION GAP 11.3 mEq/L (7-13); CHLORIDE,CL 101 mmol/L (101-111); SODIUM,NA 136 mmol/L (136-145)
[2019-09-14] MEDS: Carvedilol 25 MG Tab PO SCH ×2 (07:43→17:28)
[2019-09-14] MEDS: Insulin Lispro 100 Units/ML 3 ML Vial SUBCUT SCH ×7 (08:16→23:04)
[2019-09-14] MEDS: oxyCODONE 5 MG Tab PO PRN ×4 (09:01→23:00)
[2019-09-14] MEDS: Aspirin 81 MG Tab.EC PO SCH (09:01)
[2019-09-14] MEDS: atorvaSTATin 20 MG Tab PO SCH (09:01)
[2019-09-14] MEDS: Levothyroxine 150 MCG Tab PO SCH (09:02)
[2019-09-14] MEDS: Phosphorus #1 250 MG Tab PO SCH ×4 (09:02→22:57)
[2019-09-14] MEDS: Lisinopril 20 MG Tab PO SCH (09:02)
[2019-09-14] MEDS: Gabapentin 300 MG Cap PO SCH ×3 (09:02→22:57)
[2019-09-14] MEDS: Furosemide 20 MG Tab PO SCH (09:02)
[2019-09-14] MEDS: Enoxaparin 40 MG/0.4 ML Syringe SUBCUT SCH (09:03)
--- NOTE | 2019-09-14 10:46 | PN ---
DATE: 09/14/2019 SUBJECTIVE: The patient is a 54-year-old male with past medical history of diabetes mellitus, hypertension, who was admitted with right lateral malleolus wound, and wound has been chronic and has been going on for the past 3 weeks, and was caused by tight footwear. The patient currently is on vancomycin and Zosyn and also getting the wet-to-dry dressing. The patient currently denies any significant ongoing complaints. He denies any fever, chills, chest pain, shortness of breath, or any other complaints. OBJECTIVE: Vital Signs: Blood pressure is 113/66, pulse of 89, respiration of 20, saturation is 95%. Heart: Regular rate and rhythm. Normal S1 and S2. No gallops. No rubs. Lungs: Equal bilaterally. No crackles. No wheezing. Abdomen: Soft, nontender. Bowel sounds positive. Extremities: Remarkable for dressing on the right foot and some dressing on the left lateral malleolus. MEDICATIONS: Reviewed. PLAN: We will continue with his present management and continue with his insulin and IV antibiotics and continue with the dressing changes. A wound culture preliminary showed beta-hemolytic strep species and suspect Staph aureus, identification and sensitivity to follow. [facility] /[id number]
[2019-09-14] MEDS: Sodium Chloride 0.9% 10 ML Syringe FLUSH PRN (14:11)
--- NOTE | 2019-09-14 15:45 | PCM.CONSN ---
- General Info Date of Service: 09/14/19 Admission Dx/Problem (Free Text): Admission Diagnosis/Problem Admission Diagnosis/Problem Sepsis Subjective Update: 54 y/o DM II male with right foot/ankle cellulitis and lateral ankle wound. Reports this started from tight shoes rubbing on his ankle while he was in senior living. This was the end of August when he first noticed a sore to the area. He was admitted for IV antibiotics 2 days ago. They have been doing wet to dry dressings q 8 hours. He reports new blister on the inside of his ankle since last night. Functional Status: Reports: Pain Controlled - Review of Systems General: Reports: No Symptoms - Patient Data Vitals - Most Recent: Last Vital Signs Temp 37.2 C 09/14/19 11:28 Pulse 86 09/14/19 11:28 Resp 20 09/14/19 11:28 BP 104/62 09/14/19 11:28 Pulse Ox 94 L 09/14/19 11:28 Weight - Most Recent: 98.486 kg I&O - Last 24 Hours: Intake & Output 09/14/19 09/14/19 09/14/19 06:59 14:59 22:59 Intake Total 1750 3040 Output Total 200 500 Balance 1550 2540 Lab Results Last 24 Hours: Laboratory Results - last 24 hr 09/13/19 09/13/19 09/14/19 Range/Units 17:03 21:09 06:20 WBC 17.4 H (5.0-10.0) 10^3/uL RBC 4.07 L (4.6-6.2) 10^6/uL Hgb 11.1 L (14.0-18.0) g/dL Hct 32.9 L (40.0-54.0) % MCV 80.8 (80-100) fL MCH 27.3 (27.0-34.0) pg MCHC 33.7 (33.0-35.0) g/dL Plt Count 165 (150-450) 10^3/uL Sodium (136-145) mmol/L Potassium (3.5-5.1) mmol/L Chloride (101-111) mmol/L Carbon Dioxide (21-32) mmol/L Anion Gap (7-13) mEq/L BUN (7-18) mg/dL Creatinine (0.70-1.30) mg/dL Est Cr Clr Drug Dosing mL/min Estimated GFR (MDRD) Glucose (74-99) mg/dL POC Glucose 113 H 121 H (70-105) mg/dl Calcium (8.5-10.1) mg/dL Phosphorus (2.6-4.7) mg/dL Magnesium (1.8-2.5) mg/dL 09/14/19 09/14/19 09/14/19 Range/Units 06:20 07:32 11:56 WBC (5.0-10.0) 10^3/uL RBC (4.6-6.2) 10^6/uL Hgb (14.0-18.0) g/dL Hct (40.0-54.0) % MCV (80-100) fL MCH (27.0-34.0) pg MCHC (33.0-35.0) g/dL Plt Count (150-450) 10^3/uL Sodium 136 (136-145) mmol/L Potassium 3.3 L (3.5-5.1) mmol/L Chloride 101 (101-111) mmol/L Carbon Dioxide 27 (21-32) mmol/L Anion Gap 11.3 (7-13) mEq/L BUN 15 (7-18) mg/dL Creatinine 0.89 (0.70-1.30) mg/dL Est Cr Clr Drug Dosing 104.14 mL/min Estimated GFR (MDRD) > 60 Glucose 197 H (74-99) mg/dL POC Glucose 214 H 205 H (70-105) mg/dl Calcium 7.2 L (8.5-10.1) mg/dL Phosphorus 2.2 L (2.6-4.7) mg/dL Magnesium 1.9 (1.8-2.5) mg/dL Osmel Results Last 24 Hours: Microbiology 09/12/19 21:36 Gram Stain - Final Ankle, Right Wound Culture - Preliminary 09/12/19 17:29 Aerobic Blood Culture - Preliminary Blood NO GROWTH AFTER 1 DAY Anaerobic Blood Culture - Preliminary NO GROWTH AFTER 1 DAY Med Orders - Current: Current Medications Acetaminophen (Tylenol) 650 mg PO Q4H PRN PRN Reason: Pain/Fever Last Admin: 09/13/19 21:24 Dose: 650 mg Aspirin (Halfprin) 81 mg PO DAILY [facility] Last Admin: 09/14/19 09:01 Dose: 81 mg Atorvastatin Calcium (Lipitor) 20 mg PO DAILY [facility] Last Admin: 09/14/19 09:01 Dose: 20 mg Carvedilol (Coreg) 12.5 mg PO BIDMEALS [facility] Last Admin: 09/14/19 07:43 Dose: 12.5 mg Enoxaparin Sodium (Lovenox) 40 mg SUBCUT DAILY [facility] Last Admin: 09/14/19 09:03 Dose: 40 mg Fentanyl (Sublimaze) 25 mcg IVPUSH Q1H PRN PRN Reason: Pain (severe 7-10) Furosemide (Lasix) 20 mg PO DAILY [facility] Last Admin: 09/14/19 09:02 Dose: 20 mg Gabapentin (Neurontin) 300 mg PO TID [facility] Last Admin: 09/14/19 14:09 Dose: 300 mg Sodium Chloride (Normal Saline) 1,000 mls @ 100 mls/hr IV ASDIRECTED [facility] Last Admin: 09/13/19 21:54 Dose: 100 mls/hr Piperacillin Sod/Tazobactam (Sod 3.375 gm/ Sodium Chloride) 100 mls @ 200 mls/ hr IV Q6H [facility] Last Infusion: 09/14/19 14:45 Dose: Infused Insulin Glargine (Lantus) 30 unit SUBCUT BEDTIME [facility] Last Admin: 09/13/19 21:48 Dose: 30 units Insulin Human Lispro (Humalog) 0 unit SUBCUT QIDACANDBED [facility]; Protocol Last Admin: 09/14/19 12:15 Dose: 4 units Insulin Human Lispro (Humalog) 22 unit SUBCUT TIDMEALS [facility] Last Admin: 09/14/19 12:16 Dose: 22 units Levothyroxine Sodium (Levothyroxine) 150 mcg PO DAILY [facility] Last Admin: 09/14/19 09:02 Dose: 150 mcg Lisinopril (Prinivil) 20 mg PO DAILY [facility] Last Admin: 09/14/19 09:02 Dose: 20 mg Ondansetron HCl (Zofran) 4 mg IV Q4H PRN PRN Reason: Nausea/Vomiting Oxycodone HCl (Oxycodone) 5 mg PO Q4H PRN PRN Reason: Pain (moderate 4-6) Last Admin: 09/14/19 14:10 Dose: 5 mg Sodium Chloride (Saline Flush) 10 ml FLUSH ASDIRECTED PRN PRN Reason: Keep Vein Open Last Admin: 09/14/19 14:11 Dose: 10 ml Sodium Phosphate (Neutra-Phos) 250 mg PO QID [facility] Last Admin: 09/14/19 14:09 Dose: 250 mg Discontinued Medications Carvedilol (Coreg) 25 mg PO DAILY [facility] Clindamycin Phosphate 900 mg/ (Sodium Chloride) 106 mls @ 200 mls/hr IV ONETIME ONE Stop: 09/12/19 17:52 Last Admin: 09/12/19 17:42 Dose: 200 mls/hr Sodium Chloride (Normal Saline) 1,000 mls @ 999 mls/hr IV .BOLUS ONE Stop: 09/12/19 18:21 Last Admin: 09/12/19 17:46 Dose: Not Given Sodium Chloride (Normal Saline) 1,000 mls @ 999 mls/hr IV .BOLUS ONE Stop: 09/12/19 20:10 Last Infusion: 09/12/19 20:16 Dose: Infused Piperacillin Sod/Tazobactam (Sod 3.375 gm/ Sodium Chloride) 100 mls @ 200 mls/ hr IV ONETIME ONE Stop: 09/12/19 20:22 Last Admin: 09/12/19 21:59 Dose: 200 mls/hr Vancomycin HCl 1 gm/ Sodium (Chloride) 250 mls @ 167 mls/hr IV ONETIME ONE Stop: 09/12/19 21:22 Last Admin: 09/12/19 20:18 Dose: 167 mls/hr Magnesium Sulfate/Dextrose 1 (gm/ Premix) 100 mls @ 100 mls/hr IV ONETIME ONE Stop: 09/13/19 09:31 Last Infusion: 09/13/19 12:31 Dose: Infused Influenza Virus Vaccine (Afluria Quad 2019-20 (3yr Up)) 60 mcg IM .ONCE ONE Stop: 09/13/19 09:01 Insulin Glargine (Lantus) 50 unit SUBCUT BID [facility] Last Admin: 09/13/19 11:03 Dose: Not Given Iopamidol (Isovue-300 (61%)) 100 ml IVPUSH ONETIME ONE Stop: 09/12/19 18:17 Last Admin: 09/12/19 18:31 Dose: 100 ml Sodium Chloride (Saline Flush) 10 ml FLUSH ASDIRECTED PRN PRN Reason: Keep Vein Open - Exam General: Alert, Oriented Physical Findings Comments:: RLE: partial thickness ulcer to lateral ankle with fibrotic base, no areas of purulence or fluctuance present. No pain with palpation of foot/ankle/lower leg , right. There is cellulitis extending distal and proximal from the wound which is marked out and looks to be improved according to the new markings today when compared to yesterday. He does have an area of necrosis to the lateral dorsal foot and there is edema present, the overlying skin is intact to that area, no blistering present except for the medial malleouls which is serous filled, looks to be more from edema and is not deep. No areas that probe or extend to joints. I am able to palpate DP pulse which feels to have a good pulse in that area, not able to palpate PT due to edema. Sepsis Event Note - Evaluation Sepsis Screening Result: No Definite Risk - Focused Exam Vital Signs: Vital Signs Temp Pulse Pulse Resp BP BP BP 09/14/19 11:28 37.2 C 86 20 104/62 09/14/19 09:02 113/66 09/14/19 07:43 89 113/66 09/14/19 07:26 36.9 C 89 20 113/66 09/14/19 04:00 37.3 C 87 18 104/71 Pulse Ox 09/14/19 11:28 94 L 09/14/19 09:02 09/14/19 07:43 09/14/19 07:26 95 09/14/19 04:00 95 Date Exam was Performed: 09/14/19 Time Exam was Performed: 15:37 Consult PN Assessment/Plan Procedures: Procedures BLOOD GASES ANY COMBINATION (08/21/16) COMPLETE CBC W/AUTO DIFF WBC (08/21/16) COMPREHEN METABOLIC PANEL (08/21/16) CT ABD & PELV W/CONTRAST (01/20/19) CT CHEST SPINE W/O DYE (09/03/18) DRUG TEST PRSMV DIR OPT OBS (08/21/16) EMERGENCY DEPT VISIT (08/21/16) GLUCOSE BLOOD TEST (08/21/16) HYDRATION IV INFUSION INIT (08/21/16) ROUTINE VENIPUNCTURE (08/21/16) TEST FOR ACETONE/KETONES (08/21/16) URINALYSIS AUTO W/SCOPE (08/21/16) WITHDRAWAL OF ARTERIAL BLOOD (08/21/16) (1) Ankle ulcer Current Visit: Yes (2) Cellulitis SNOMED Code(s): 483836774 Code(s): L03.90 - CELLULITIS, UNSPECIFIED Current Visit: No Qualifiers: Site of cellulitis: extremity Site of cellulitis of extremity: lower extremity Laterality: right Qualified Code(s): L03.115 - Cellulitis of right lower limb Problem List Initiated/Reviewed/Updated: Yes Plan: I did cleanse the area with vashe wound wash, no areas of fluctuance and not able to express any purulence. He is on IV antibiotics and final culture reports not back yet. The erythema marked out appears slightly better than yesterday, but new blister to medial ankle which looks to be from edema so I did dress the foot with gauze and jina wrap compression dressing. Keep intact until tomorrow AM, I will check again tomorrow and keep close eye on this. If this does not improve then may need more debridement in [place], I will be leaving out of town so will continue to monitor until then and go from there. CT scan looks without osteo or any gas in soft tissues/no abscess. I will recheck tomorrow AM.
[2019-09-14] MEDS: Acetaminophen 325 MG Tab PO PRN ×2 (17:29→22:59)
[2019-09-14] MEDS: Insulin Glarg,Human.Rec.Analog 100 Unit/ML SUBCUT SCH (22:57)
[2019-09-15] MEDS: Piperacillin/Tazobactam 3.375 GM in Sodium Chloride 0.9% 100 ML IV SCH ×2 (02:12→08:22)
[2019-09-15 07:06] LABS: CHLORIDE,CL 102 mmol/L (101-111); SODIUM,NA 138 mmol/L (136-145)
[2019-09-15 08:16] VITALS: BP 121/73; PULSE 84
[2019-09-15] MEDS: Insulin Lispro 100 Units/ML 3 ML Vial SUBCUT SCH ×2 (08:17)
[2019-09-15] MEDS: Carvedilol 25 MG Tab PO SCH (08:18)
--- NOTE | 2019-09-15 08:18 | PCM.CONSN ---
- General Info Date of Service: 09/15/19 Admission Dx/Problem (Free Text): Admission Diagnosis/Problem Admission Diagnosis/Problem Sepsis Subjective Update: 54 y/o DM II male with right foot/ankle cellulitis and lateral ankle wound. Reports this started from tight shoes rubbing on his ankle while he was in assisted. This was the end of August when he first noticed a sore to the area. He was admitted for IV antibiotics 2 days ago. They have been doing wet to dry dressings q 8 hour, I did compression dressing to RLE last night and he reports he did sleep well, is having pain still to that ankle and foot. - Patient Data Vitals - Most Recent: Last Vital Signs Temp 37.5 C 09/15/19 06:00 Pulse 95 09/14/19 20:00 Resp 20 09/15/19 04:00 BP 106/59 L 09/14/19 20:00 Pulse Ox 98 09/14/19 20:00 Weight - Most Recent: 101.831 kg I&O - Last 24 Hours: Intake & Output 09/14/19 09/15/19 09/15/19 22:59 06:59 14:59 Intake Total 1066 103 Output Total 300 Balance 766 103 Lab Results Last 24 Hours: Laboratory Results - last 24 hr 09/14/19 09/14/19 09/14/19 Range/Units 11:56 16:51 20:31 WBC (5.0-10.0) 10^3/uL RBC (4.6-6.2) 10^6/uL Hgb (14.0-18.0) g/dL Hct (40.0-54.0) % MCV (80-100) fL MCH (27.0-34.0) pg MCHC (33.0-35.0) g/dL Plt Count (150-450) 10^3/uL Sodium (136-145) mmol/L Potassium (3.5-5.1) mmol/L Chloride (101-111) mmol/L Carbon Dioxide (21-32) mmol/L Anion Gap (7-13) mEq/L BUN (7-18) mg/dL Creatinine (0.70-1.30) mg/dL Est Cr Clr Drug Dosing mL/min Estimated GFR (MDRD) Glucose (74-99) mg/dL POC Glucose 205 H 112 H 74 (70-105) mg/dl Calcium (8.5-10.1) mg/dL Phosphorus (2.6-4.7) mg/dL Magnesium (1.8-2.5) mg/dL 09/15/19 09/15/19 09/15/19 Range/Units 06:20 06:20 07:50 WBC 18.6 H (5.0-10.0) 10^3/uL RBC 4.08 L (4.6-6.2) 10^6/uL Hgb 11.1 L (14.0-18.0) g/dL Hct 32.8 L (40.0-54.0) % MCV 80.4 (80-100) fL MCH 27.2 (27.0-34.0) pg MCHC 33.8 (33.0-35.0) g/dL Plt Count 195 (150-450) 10^3/uL Sodium 138 (136-145) mmol/L Potassium 3.0 L (3.5-5.1) mmol/L Chloride 102 (101-111) mmol/L Carbon Dioxide 26 (21-32) mmol/L Anion Gap 13.0 (7-13) mEq/L BUN 10 (7-18) mg/dL Creatinine 0.80 (0.70-1.30) mg/dL Est Cr Clr Drug Dosing 115.86 mL/min Estimated GFR (MDRD) > 60 Glucose 251 H (74-99) mg/dL POC Glucose 267 H (70-105) mg/dl Calcium 6.7 L (8.5-10.1) mg/dL Phosphorus 2.1 L (2.6-4.7) mg/dL Magnesium 1.7 L (1.8-2.5) mg/dL Osmel Results Last 24 Hours: Microbiology 09/12/19 21:36 Gram Stain - Final Ankle, Right Wound Culture - Final Staphylococcus Aureus Streptococcus Group A 09/12/19 17:29 Aerobic Blood Culture - Preliminary Blood NO GROWTH AFTER 2 DAYS Anaerobic Blood Culture - Preliminary NO GROWTH AFTER 2 DAYS Med Orders - Current: Current Medications Acetaminophen (Tylenol) 650 mg PO Q4H PRN PRN Reason: Pain/Fever Last Admin: 09/14/19 22:59 Dose: 650 mg Aspirin (Halfprin) 81 mg PO DAILY [facility] Last Admin: 09/14/19 09:01 Dose: 81 mg Atorvastatin Calcium (Lipitor) 20 mg PO DAILY [facility] Last Admin: 09/14/19 09:01 Dose: 20 mg Carvedilol (Coreg) 12.5 mg PO BIDMEALS [facility] Last Admin: 09/14/19 17:28 Dose: 12.5 mg Enoxaparin Sodium (Lovenox) 40 mg SUBCUT DAILY [facility] Last Admin: 09/14/19 09:03 Dose: 40 mg Fentanyl (Sublimaze) 25 mcg IVPUSH Q1H PRN PRN Reason: Pain (severe 7-10) Furosemide (Lasix) 20 mg PO DAILY [facility] Last Admin: 09/14/19 09:02 Dose: 20 mg Gabapentin (Neurontin) 300 mg PO TID [facility] Last Admin: 09/14/19 22:57 Dose: 300 mg Sodium Chloride (Normal Saline) 1,000 mls @ 100 mls/hr IV ASDIRECTED [facility] Last Admin: 09/13/19 21:54 Dose: 100 mls/hr Piperacillin Sod/Tazobactam (Sod 3.375 gm/ Sodium Chloride) 100 mls @ 200 mls/ hr IV Q6H [facility] Last Admin: 09/15/19 02:12 Dose: 200 mls/hr Insulin Glargine (Lantus) 30 unit SUBCUT BEDTIME [facility] Last Admin: 09/14/19 22:57 Dose: 30 units Insulin Human Lispro (Humalog) 0 unit SUBCUT QIDACANDBED [facility]; Protocol Last Admin: 09/14/19 23:04 Dose: Not Given Insulin Human Lispro (Humalog) 22 unit SUBCUT TIDMEALS [facility] Last Admin: 09/14/19 17:32 Dose: 22 units Levothyroxine Sodium (Levothyroxine) 150 mcg PO DAILY [facility] Last Admin: 09/14/19 09:02 Dose: 150 mcg Lisinopril (Prinivil) 20 mg PO DAILY [facility] Last Admin: 09/14/19 09:02 Dose: 20 mg Ondansetron HCl (Zofran) 4 mg IV Q4H PRN PRN Reason: Nausea/Vomiting Oxycodone HCl (Oxycodone) 5 mg PO Q4H PRN PRN Reason: Pain (moderate 4-6) Last Admin: 09/14/19 23:00 Dose: 5 mg Sodium Chloride (Saline Flush) 10 ml FLUSH ASDIRECTED PRN PRN Reason: Keep Vein Open Last Admin: 09/14/19 14:11 Dose: 10 ml Sodium Phosphate (Neutra-Phos) 250 mg PO QID [facility] Last Admin: 09/14/19 22:57 Dose: 250 mg Discontinued Medications Carvedilol (Coreg) 25 mg PO DAILY [facility] Clindamycin Phosphate 900 mg/ (Sodium Chloride) 106 mls @ 200 mls/hr IV ONETIME ONE Stop: 09/12/19 17:52 Last Admin: 09/12/19 17:42 Dose: 200 mls/hr Sodium Chloride (Normal Saline) 1,000 mls @ 999 mls/hr IV .BOLUS ONE Stop: 09/12/19 18:21 Last Admin: 09/12/19 17:46 Dose: Not Given Sodium Chloride (Normal Saline) 1,000 mls @ 999 mls/hr IV .BOLUS ONE Stop: 09/12/19 20:10 Last Infusion: 09/12/19 20:16 Dose: Infused Piperacillin Sod/Tazobactam (Sod 3.375 gm/ Sodium Chloride) 100 mls @ 200 mls/ hr IV ONETIME ONE Stop: 09/12/19 20:22 Last Admin: 09/12/19 21:59 Dose: 200 mls/hr Vancomycin HCl 1 gm/ Sodium (Chloride) 250 mls @ 167 mls/hr IV ONETIME ONE Stop: 09/12/19 21:22 Last Admin: 09/12/19 20:18 Dose: 167 mls/hr Magnesium Sulfate/Dextrose 1 (gm/ Premix) 100 mls @ 100 mls/hr IV ONETIME ONE Stop: 09/13/19 09:31 Last Infusion: 09/13/19 12:31 Dose: Infused Influenza Virus Vaccine (Afluria Quad 2019-20 (3yr Up)) 60 mcg IM .ONCE ONE Stop: 09/13/19 09:01 Insulin Glargine (Lantus) 50 unit SUBCUT BID [facility] Last Admin: 09/13/19 11:03 Dose: Not Given Iopamidol (Isovue-300 (61%)) 100 ml IVPUSH ONETIME ONE Stop: 09/12/19 18:17 Last Admin: 09/12/19 18:31 Dose: 100 ml Sodium Chloride (Saline Flush) 10 ml FLUSH ASDIRECTED PRN PRN Reason: Keep Vein Open - Exam Physical Findings Comments:: RLE with erythema to lateral foot and ankle extending posterior ankle and dorsally at foot with wound to lateral malleolus with fibrotic base and necrotic tissue at the lateral malleolus and dorsal foot, no improvement since last night when I saw him compared to the markings. He does have a blister to the medial mall that did pop over night. I am not able to feel any areas of fluctuance and no purulent drainage expressed today. He does have edema to foot and ankle. Sepsis Event Note - Evaluation Sepsis Screening Result: No Definite Risk - Focused Exam Vital Signs: Vital Signs Temp Resp 09/15/19 06:00 37.5 C 09/15/19 04:00 37.7 C 20 09/15/19 02:00 37.7 C 18 Date Exam was Performed: 09/15/19 Time Exam was Performed: 08:10 Consult PN Assessment/Plan Procedures: Procedures BLOOD GASES ANY COMBINATION (08/21/16) COMPLETE CBC W/AUTO DIFF WBC (08/21/16) COMPREHEN METABOLIC PANEL (08/21/16) CT ABD & PELV W/CONTRAST (01/20/19) CT CHEST SPINE W/O DYE (09/03/18) DRUG TEST PRSMV DIR OPT OBS (08/21/16) EMERGENCY DEPT VISIT (08/21/16) GLUCOSE BLOOD TEST (08/21/16) HYDRATION IV INFUSION INIT (08/21/16) ROUTINE VENIPUNCTURE (08/21/16) TEST FOR ACETONE/KETONES (08/21/16) URINALYSIS AUTO W/SCOPE (08/21/16) WITHDRAWAL OF ARTERIAL BLOOD (08/21/16) (1) Ankle ulcer Current Visit: Yes (2) Cellulitis SNOMED Code(s): 922272570 Code(s): L03.90 - CELLULITIS, UNSPECIFIED Current Visit: No Qualifiers: Site of cellulitis: extremity Site of cellulitis of extremity: lower extremity Laterality: right Qualified Code(s): L03.115 - Cellulitis of right lower limb Problem List Initiated/Reviewed/Updated: Yes Plan: I did cleanse the area with vashe wound wash, no areas of fluctuance and not able to express any purulence. He is on IV antibiotics and final culture reports from the AM reveal staph aureus and beta hemoltyic staph group A. The erythema marked out appears similar to last night. I did dress the foot with gauze and jina wrap compression dressing. I discussed possible need for debridement and risks to foot and leg with patient. I am leaving out of town for the next week, discussed with Dr. Boo he may need a thourough debridement to that foot and ankle and also vascular work up, would best to be transferred to [place]. I applied the compression wrap today to keep intact. I would be happy to see him again for follow up wound care when he gets back to [place] as needed.
[2019-09-15] MEDS: Levothyroxine 150 MCG Tab PO SCH (08:19)
[2019-09-15] MEDS: Gabapentin 300 MG Cap PO SCH (08:19)
[2019-09-15] MEDS: Aspirin 81 MG Tab.EC PO SCH (08:19)
[2019-09-15] MEDS ORDERED: Potassium Chloride 10 MEQ Tab.ER PO ONE (08:19)
[2019-09-15] MEDS: Phosphorus #1 250 MG Tab PO SCH (08:20)
[2019-09-15] MEDS: Furosemide 20 MG Tab PO SCH (08:20)
[2019-09-15] MEDS: Lisinopril 20 MG Tab PO SCH (08:21)
[2019-09-15] MEDS: Enoxaparin 40 MG/0.4 ML Syringe SUBCUT SCH (08:21)
[2019-09-15] MEDS: Sodium Chloride 0.9% 10 ML Syringe FLUSH PRN (08:21)
[2019-09-15] MEDS: atorvaSTATin 20 MG Tab PO SCH (08:21)
[2019-09-15] MEDS: Acetaminophen 325 MG Tab PO PRN (08:32)
[2019-09-15] MEDS: oxyCODONE 5 MG Tab PO PRN (08:32)
--- NOTE | 2019-09-15 10:31 | PN ---
DATE: 09/15/2019 SUBJECTIVE: The patient overall is doing fairly well. Still complained of some pain on the right lower leg and the patient was seen by Dr. Alvarez (Podiatry) yesterday and she did some dressing and again she saw him this morning without improvement of the wound and she has recommended the patient to be transferred for debridement and also still for vascular workup. The patient denies though any chest pain, shortness of breath, orthopnea, PND, abdominal pain, or any other complaints. OBJECTIVE: Vital Signs: Blood pressure is 106/59, pulse of 95, respirations of 20, temperature of 99.5. Heart: Regular rate and rhythm. Normal S1 and S2. No gallops. No rubs. Lungs: Equal bilaterally. No crackles. No wheezing. Abdomen: Soft, nontender. Bowel sounds positive. Extremities: Remarkable for the superficial wound on the medial malleolus on the right foot and darkened and blackened wound on the right lateral malleolus. There is dressing noted on the left lateral malleolus. There is some mild erythema noted. LABORATORY DATA: Wound culture showed Staphylococcus aureus, susceptible to most antibiotics. PLAN: I did discuss with the patient that since there is no improvement with his current regimen and he will be needing debridement and possibly vascular workup on the lower extremity that I will be transferring him to [place] and he is agreeable with this plan. I did speak with Dr. Hinson, hospitalist in [place] and he is accepting the patient for transfer. CONDITION ON TRANSFER: Stable. [facility] /[id number]
--- NOTE | 2019-09-16 00:50 | DISCH ---
FINAL DIAGNOSES: 1. Cellulitis of the right lower extremity. 2. Diabetic wound. 3. Systemic inflammatory response syndrome. 4. Hypertension. 5. Status post permanent pacemaker placement. 6. History of congestive heart failure with left ventricular systolic dysfunction. BRIEF HISTORY OF PRESENT ILLNESS: The patient is a 54-year-old male with past medical history of type 2 diabetes mellitus, hypertension, and CHF, who was admitted with right lateral malleolus wound and on admission the patient had leukocytosis and blood cultures were done, which came back negative. Wound culture was also sent and eventually came back Staphylococcus aureus which is susceptible to most antibiotics (MSSA). The patient was started on vancomycin and Zosyn and also started on wound care with wet-to-dry dressing. The patient had a CAT scan of the lower extremity and this did not show any osteomyelitis. The patient's WBC remained elevated, but fever was slowly improving. Since there was no significant improvement with the wound and actually there was some worsening of the cellulitis, Podiatry consultation was done and Dr. Alvarez evaluated the patient and did some dressing changes and she also recommended the patient needs further wound care with debridement and possibly vascular workup. Because of this, the patient was then transferred to [facility] and Dr. Hinson was willing to accept the patient. CONDITION ON TRANSFER: Stable. [facility] /[id number]
== END 2019-09-15 09:05 | DRG 638 ==
LOC: DL.ED 16:48 → DL.MS 19:56
PROVIDERS: ADMIT Hospitalist; ATTEND Internal Medicine
DX: E11.628 Type 2 diabetes mellitus with other skin complications (principal); L03.115 Cellulitis of right lower limb; R65.10 Systemic inflammatory response syndrome (SIRS) of non-infectious origin without acute organ dysfunction; L97.319 Non-pressure chronic ulcer of right ankle with unspecified severity; E11.65 Type 2 diabetes mellitus with hyperglycemia; E03.9 Hypothyroidism, unspecified; B95.61 Methicillin susceptible Staphylococcus aureus infection as the cause of diseases classified elsewhere; E11.622 Type 2 diabetes mellitus with other skin ulcer; I11.0 Hypertensive heart disease with heart failure; I50.9 Heart failure, unspecified; E78.00 Pure hypercholesterolemia, unspecified; Z23 Encounter for immunization; Z79.82 Long term (current) use of aspirin; Z79.4 Long term (current) use of insulin; Z79.890 Hormone replacement therapy; Z79.899 Other long term (current) drug therapy
CPT/HCPCS: 36415; 73701-RT; 80048; 80053; 82962; 83605; 83735; 84100; 85025; 85027; 87040; 87070; 87077; 87186; 87205; 96361; 96365; 99285-25; A9270-GY; J1650; J1815; J1815-GY; J2543; J3370; J3475; J3490; J7030; J7050; Q9967

== ENCOUNTER 2019-10-13 10:59 | Emergency (ER) | payer MEDICAID ==
[2019-10-13] MEDS ORDERED: Sodium Chloride 0.9% 10 ML Syringe FLUSH PRN (11:03)
== END 2019-10-13 11:08 | disposition left against medical advice (07) ==
LOC: DL.ED 10:59
DX: Z53.21 Procedure and treatment not carried out due to patient leaving prior to being seen by health care provider (principal)

== ENCOUNTER 2019-11-27 16:55 | Emergency (ER) | payer MEDICAID ==
[2019-11-27 17:05] VITALS: BP 139/92; PULSE 117
[2019-11-27] MEDS ORDERED: Sodium Chloride 0.9% 10 ML Syringe FLUSH PRN (17:07)
[2019-11-27] MEDS ORDERED: Sodium Chloride 0.9% 1,000 ML IV ONE (17:24)
[2019-11-27] MEDS ORDERED: Insulin Regular, Human 100 Units/ML 3 ML Vial IV ONE (17:24)
[2019-11-27 17:54] LABS: ANION GAP 12.4 mEq/L (7-13); CHLORIDE,CL 94 mmol/L (98-107); SODIUM,NA 130 mmol/L (136-145)
[2019-11-27] MEDS ORDERED: Acetaminophen/HYDROcodone 325-10 MG Tab PO ONE (18:03)
[2019-11-27] MEDS ORDERED: Silver Sulfadiazine 1% Crm 50 GM Tube TOP ONE (18:06)
--- NOTE | 2019-11-27 18:42 | EDM.PDOC ---
Scribed by Brenda Solomon 11/27/19 7311 for Starr Cerda NP ED HPI GENERAL MEDICAL PROBLEM - General Chief Complaint: Diabetic Complaint Stated Complaint: DIABETIC CUT ON THE OUTSIDE OF RIGH ANKLE Time Seen by Provider: 11/27/19 17:16 Source of Information: Reports: Patient, RN, RN Notes Reviewed History Limitations: Reports: No Limitations - History of Present Illness INITIAL COMMENTS - FREE TEXT/NARRATIVE: Patient presents to ER with diabetic wound complication. States he has had the wound since August. He was hospitalized for a time due to the wound. States he has been changing the dressings himself, but has run out of the stuff to change the dressings. Has been off antibiotics for 3 weeks. States the sores are painful (10) throbbing. Last checked his blood sugar on Friday or over 500s, last took insulin 3 days ago. He has chills (unknown if fever). No chest pain, shortness of breath, nausea, vomiting or diarrhea. Onset: Gradual Duration: Getting Worse Location: Reports: Lower Extremity, Left, Lower Extremity, Right Quality: Reports: Throbbing Severity: Moderate Improves with: Reports: None Worsens with: Reports: None Associated Symptoms: Reports: No Other Symptoms Bilateral Foot Pain Score (Numeric/FACES): 9 - Related Data Allergies Allergy/AdvReac Type Severity Reaction Status Date / Time No Known Allergies Allergy Verified 11/27/19 17:02 Home Meds: Home Meds Aspirin [Ecotrin] 81 mg PO DAILY 06/11/18 [History] Furosemide [Lasix] 20 mg PO DAILY 06/11/18 [History] Insulin Detemir [Levemir Flextouch] 50 units SQ BID 06/11/18 [History] Levothyroxine Sodium [Synthroid] 150 mcg PO DAILY 06/11/18 [History] Lisinopril 20 mg PO DAILY 06/11/18 [History] Pioglitazone HCl [Actos] 30 mg PO DAILY 06/11/18 [History] atorvaSTATin [Lipitor] 20 mg PO DAILY 06/11/18 [History] carvediloL [Coreg] 25 mg PO DAILY 06/11/18 [History] metFORMIN HCl [Metformin HCl] 1,000 mg PO BID 06/11/18 [History] Gabapentin [Neurontin] 300 mg PO TID 09/12/19 [History] Insulin Aspart [NovoLOG] 22 units SQ TID 09/12/19 [History] Past Medical History HEENT History: Reports: None Cardiovascular History: Reports: Heart Failure, High Cholesterol, Hypertension, Other (See Below) Other Cardiovascular History: CARDIAC PACEMAKER PLACED 03/2009. ISCHEMIC VASCULAR DISEASE. LV DYSFUNCTION Respiratory History: Reports: None Gastrointestinal History: Reports: None Genitourinary History: Reports: None Musculoskeletal History: Reports: Arthritis Neurological History: Reports: None Psychiatric History: Reports: None Endocrine/Metabolic History: Reports: Diabetes, Type II Hematologic History: Reports: None Immunologic History: Reports: None Oncologic (Cancer) History: Reports: None Dermatologic History: Reports: None - Infectious Disease History Infectious Disease History: Reports: None - Past Surgical History Head Surgeries/Procedures: Reports: None Cardiovascular Surgical History: Reports: Pacer Other Cardiovascular Surgeries/Procedures: PACEMAKER PLACED 03/2009 GI Surgical History: Reports: Colonoscopy Social & Family History - Family History Family Medical History: Noncontributory - Tobacco Use Smoking Status *Q: Never Smoker - Caffeine Use Caffeine Use: Reports: None - Recreational Drug Use Recreational Drug Use: No ED ROS GENERAL - Review of Systems Review Of Systems: Comprehensive ROS is negative, except as noted in HPI. ED EXAM GENERAL NO PERIP PULSE - Physical Exam Exam: See Below Exam Limited By: No Limitations General Appearance: Alert, WD/WN, No Apparent Distress Eye Exam: Bilateral Eye: EOMI, Normal Inspection, PERRL Ears: Normal External Exam, Normal Canal, Hearing Grossly Normal, Normal TMs Nose: Normal Inspection, Normal Mucosa, No Blood Throat/Mouth: Normal Inspection, Normal Lips, Normal Teeth, Normal Gums, Normal Oropharynx, Normal Voice, No Airway Compromise Head: Atraumatic, Normocephalic Neck: Normal Inspection, Supple, Non-Tender, Full Range of Motion Respiratory/Chest: No Respiratory Distress, Lungs Clear, Normal Breath Sounds, No Accessory Muscle Use, Chest Non-Tender Cardiovascular: Normal Peripheral Pulses, Regular Rate, Rhythm, No Edema, No Gallop, No JVD, No Murmur, No Rub GI/Abdominal: Normal Bowel Sounds, Soft, Non-Tender, No Organomegaly, No Distention, No Abnormal Bruit, No Mass (Male) Exam: Deferred Rectal (Males) Exam: Deferred Back Exam: Normal Inspection, Full Range of Motion, NT Extremities: Other (see skin exam) Neurological: Alert, Oriented, CN II-XII Intact, Normal Cognition, Normal Gait, Normal Reflexes, No Motor/Sensory Deficits Psychiatric: Normal Affect, Normal Mood Skin Exam: Other (Left ankle [id number] ulcer with eschar. Right ankle foot 15cm ulcer, eryahtma with eschar and slough in the center. ) Lymphatic: No Adenopathy Course - Vital Signs Last Recorded V/S: Last Vital Signs Temp 97.9 F 11/27/19 17:03 Pulse 117 H 11/27/19 17:03 Resp 18 11/27/19 17:03 BP 139/92 H 11/27/19 17:03 Pulse Ox 100 11/27/19 17:03 - Orders/Labs/Meds Orders: Active Orders 24 hr Category Date Time Status Blood Glucose Check, Bedside [RC] ONETIME Care 11/27/19 17:08 Active Blood Glucose Check, Bedside [RC] ONETIME Care 11/27/19 18:08 Active Peripheral IV Care [RC] . DIRECTED Care 11/27/19 17:09 Active Foot Comp Min 3V Rt [CR] Urgent Exams 11/27/19 17:25 Taken CULTURE BLOOD [BC] Stat Lab 11/27/19 17:18 Received CULTURE WOUND [RM] Urgent Lab 11/27/19 17:14 Received Sodium Chloride 0.9% [Saline Flush] Med 11/27/19 17:07 Active 10 ml FLUSH ASDIRECTED PRN Peripheral IV Insertion Adult [OM.PC] Stat Oth 11/27/19 17:07 Ordered Medication Orders Sodium Chloride (Saline Flush) 10 ml FLUSH ASDIRECTED PRN PRN Reason: Keep Vein Open Last Admin: 11/27/19 18:03 Dose: 10 ml Labs: Laboratory Tests 11/27/19 11/27/19 11/27/19 Range/Units 17:12 17:18 17:18 WBC 5.7 (5.0-10.0) 10^3/uL RBC 4.93 (4.6-6.2) 10^6/uL Hgb 13.2 L D (14.0-18.0) g/dL Hct 39.8 L (40.0-54.0) % MCV 80.7 (80-100) fL MCH 26.8 L (27.0-34.0) pg MCHC 33.2 (33.0-35.0) g/dL Plt Count 184 (150-450) 10^3/uL Neut % (Auto) 60.7 (42.2-75.2) % Lymph % (Auto) 27.9 (20.5-50.1) % Knott % (Auto) 9.5 H (2-8) % Eos % (Auto) 1.4 (1.0-3.0) % Baso % (Auto) 0.5 (0.0-1.0) % Sodium 130 L (136-145) mmol/L Potassium 4.4 (3.5-5.1) mmol/L Chloride 94 L (98-107) mmol/L Carbon Dioxide 28 (21-32) mmol/L Anion Gap 12.4 (7-13) mEq/L BUN 23 H (7-18) mg/dL Creatinine 1.09 (0.70-1.30) mg/dL Est Cr Clr Drug Dosing 85.04 mL/min Estimated GFR (MDRD) > 60 BUN/Creatinine Ratio 21.1 (No establ ref range) Glucose 525 H* (74-99) mg/dL POC Glucose > 500 H* (70-105) mg/dl Lactic Acid (0.4-2.0) mmol/L Calcium 8.5 D (8.5-10.1) mg/dL Total Bilirubin 0.4 (0.2-1.0) mg/dL AST 15 (15-37) U/L ALT 20 (16-63) U/L Alkaline Phosphatase 218 H (46-116) U/L C-Reactive Protein 0.9 (0.0-0.9) mg/dL Total Protein 7.5 (6.4-8.2) g/dL Albumin 3.0 L (3.4-5.0) g/dL Globulin 4.5 Albumin/Globulin Ratio 0.67 11/27/19 11/27/19 Range/Units 17:18 18:34 WBC (5.0-10.0) 10^3/uL RBC (4.6-6.2) 10^6/uL Hgb (14.0-18.0) g/dL Hct (40.0-54.0) % MCV (80-100) fL MCH (27.0-34.0) pg MCHC (33.0-35.0) g/dL Plt Count (150-450) 10^3/uL Neut % (Auto) (42.2-75.2) % Lymph % (Auto) (20.5-50.1) % Knott % (Auto) (2-8) % Eos % (Auto) (1.0-3.0) % Baso % (Auto) (0.0-1.0) % Sodium (136-145) mmol/L Potassium (3.5-5.1) mmol/L Chloride (98-107) mmol/L Carbon Dioxide (21-32) mmol/L Anion Gap (7-13) mEq/L BUN (7-18) mg/dL Creatinine (0.70-1.30) mg/dL Est Cr Clr Drug Dosing mL/min Estimated GFR (MDRD) BUN/Creatinine Ratio (No establ ref range) Glucose (74-99) mg/dL POC Glucose 381 H (70-105) mg/dl Lactic Acid 1.2 (0.4-2.0) mmol/L Calcium (8.5-10.1) mg/dL Total Bilirubin (0.2-1.0) mg/dL AST (15-37) U/L ALT (16-63) U/L Alkaline Phosphatase (46-116) U/L C-Reactive Protein (0.0-0.9) mg/dL Total Protein (6.4-8.2) g/dL Albumin (3.4-5.0) g/dL Globulin Albumin/Globulin Ratio Meds: Medications Generic Name Dose Route Start Last Admin Trade Name Freq PRN Reason Stop Dose Admin Sodium Chloride 10 ml 11/27/19 17:07 11/27/19 18:03 Saline Flush FLUSH 10 ml ASDIRECTED PRN Administration Keep Vein Open Discontinued Medications Generic Name Dose Route Start Last Admin Trade Name Freq PRN Reason Stop Dose Admin Hydrocodone Bitart/Acetaminophen 1 tab 11/27/19 18:03 11/27/19 18:11 Henrietta 325-10 Mg PO 11/27/19 18:04 1 tab ONETIME ONE Administration Sodium Chloride 1,000 mls @ 999 mls/hr 11/27/19 17:24 11/27/19 18:03 Normal Saline IV 11/27/19 18:24 999 mls/hr .BOLUS ONE Administration Insulin Human Regular 10 unit 11/27/19 17:24 11/27/19 18:03 Humulin R IV 11/27/19 17:25 10 units ONETIME ONE Administration Silver Sulfadiazine 2 gm 11/27/19 18:06 11/27/19 18:10 Silvadene 1% Cream 50 Gm TOP 11/27/19 18:07 2 gm ONETIME ONE Administration - Radiology Interpretation Free Text/Narrative:: right foot xray: FINDINGS: Bones/joints: The bones are normally mineralized. No acute fracture is identified. There is no bone destruction or periosteal reaction. The joints are normally aligned and articulated. There is a small plantar calcaneal spur. Soft tissues: There is soft tissue swelling, mainly involving the ankle. No soft tissue gas or radiopaque foreign body is identified. IMPRESSION: No radiographic evidence for osteomyelitis. Thank you for allowing us to participate in the care of your patient. Dictated and Authenticated by: Areli Man MD 11/27/2019 5:55 PM Central Time ([place] & [place]) See rad report Departure - Departure Time of Disposition: 18:38 Disposition: Home, Self-Care 01 Condition: Fair Clinical Impression: Hyperglycemia Ankle ulcer Qualifiers: Laterality: right Non-pressure ulcer stage: unspecified non-pressure ulcer stage Qualified Code(s): L97.319 - Non-pressure chronic ulcer of right ankle with unspecified severity - Discharge Information *PRESCRIPTION DRUG MONITORING PROGRAM REVIEWED*: No *COPY OF PRESCRIPTION DRUG MONITORING REPORT IN PATIENT ALISA: No Instructions: Hyperglycemia, [id number] Forms: ED Department Discharge Additional Instructions: Change dressings as ordered Take your insulin as prescribed Take all your medications as prescribed Follow up with your primary care facility Sepsis Event Note - Evaluation Sepsis Screening Result: No Definite Risk - Focused Exam Vital Signs: Vital Signs Temp Pulse Resp BP Pulse Ox 11/27/19 17:03 97.9 F 117 H 18 139/92 H 100 Date Exam was Performed: 11/27/19 Time Exam was Performed: 18:38 - My Orders Last 24 Hours: My Active Orders 11/27/19 17:07 Sodium Chloride 0.9% [Saline Flush] 10 ml FLUSH ASDIRECTED PRN Peripheral IV Insertion Adult [OM.PC] Stat 11/27/19 17:08 Blood Glucose Check, Bedside [RC] ONETIME 11/27/19 17:09 Peripheral IV Care [RC] . DIRECTED 11/27/19 17:14 CULTURE WOUND [RM] Urgent 11/27/19 17:18 CULTURE BLOOD [BC] Stat 11/27/19 17:25 Foot Comp Min 3V Rt [CR] Urgent 11/27/19 18:08 Blood Glucose Check, Bedside [RC] ONETIME - Assessment/Plan Last 24 Hours: My Active Orders 11/27/19 17:07 Sodium Chloride 0.9% [Saline Flush] 10 ml FLUSH ASDIRECTED PRN Peripheral IV Insertion Adult [OM.PC] Stat 11/27/19 17:08 Blood Glucose Check, Bedside [RC] ONETIME 11/27/19 17:09 Peripheral IV Care [RC] . DIRECTED 11/27/19 17:14 CULTURE WOUND [RM] Urgent 11/27/19 17:18 CULTURE BLOOD [BC] Stat 11/27/19 17:25 Foot Comp Min 3V Rt [CR] Urgent 11/27/19 18:08 Blood Glucose Check, Bedside [RC] ONETIME I have read and agree with the documentation that has been completed regarding this visit. By signing this record, I attest that the documentation was completed in my physical presence and is an accurate record of the encounter.
== END 2019-11-27 19:06 | disposition home or self-care (01) ==
LOC: DL.ED 16:55
DX: E11.622 Type 2 diabetes mellitus with other skin ulcer (principal); L97.319 Non-pressure chronic ulcer of right ankle with unspecified severity; M19.90 Unspecified osteoarthritis, unspecified site; I11.0 Hypertensive heart disease with heart failure; I50.9 Heart failure, unspecified; E78.00 Pure hypercholesterolemia, unspecified; Z79.82 Long term (current) use of aspirin; Z79.4 Long term (current) use of insulin
CPT/HCPCS: 36415; 73630; 80053; 82962; 83605; 85025; 86140; 87040; 87070; 87077; 87186; 96360; 99285; A9270; J1815; J7030

== ENCOUNTER 2019-12-15 18:57 | Emergency (ER) | payer MEDICAID ==
[2019-12-15] MEDS ORDERED: Iopamidol 612 MG/ML 100 ML Bottle IVPUSH ONE (19:33)
[2019-12-15] MEDS ORDERED: Sodium Chloride 0.9% 1,000 ML IV ONE ×3 (19:37→20:42)
[2019-12-15] MEDS ORDERED: Insulin Regular, Human 100 Units/ML 3 ML Vial IV ONE (19:37)
[2019-12-15] MEDS ORDERED: Piperacillin/Tazobactam 3.375 GM in Sodium Chloride 0.9% 100 ML IV ONE (19:41)
[2019-12-15 19:53] LABS: CHLORIDE,CL 93 mmol/L (98-107); SODIUM,NA 127 mmol/L (136-145)
[2019-12-15 20:00] LABS: BASE EXCESS ARTERIAL -24 mmol/L ((-2)-(+3)); BICARBONATE,ARTERIAL 4.2 mmol/L (22-26); O2 DELIVERY DEVICE ROOM AIR; O2 SATURATION ARTERIAL 84 % (95-100); PO2 ARTERIAL 59 mmHg (70-100)
[2019-12-15 20:04] LABS: ALLEN TEST LB; O2 FLOW RATE 0; PCO2 ARTERIAL 13 mmHg (35-45)
[2019-12-15 20:06] LABS: ANION GAP 33.3 mEq/L (7-13)
[2019-12-15 20:26] VITALS: BP 127/78; PULSE 116
--- NOTE | 2019-12-15 20:52 | CT ---
PROCEDURE INFORMATION: Exam: CT Right Lower Extremity With Contrast; Lower Leg Exam date and time: 12/15/2019 8:07 PM Age: 54 years old Clinical indication: Other: Wound, grangranous appearance; Additional info: Wound, gangranous appearance TECHNIQUE: Imaging protocol: CT of the Right lower extremity with intravenous contrast was performed. Exam focused on the lower leg. Radiation optimization: All CT scans at this facility use at least one of these dose optimization techniques: automated exposure control; mA and/or kV adjustment per patient size (includes targeted exams where dose is matched to clinical indication); or iterative reconstruction. Contrast material: ISOVUE 300; Contrast volume: 100 ml; Contrast route: LT HAND; COMPARISON: 1. CR - Foot Comp Min 3V Rt 11/27/2019 5:45:[address] - Foot w Cont Rt 09/12/2019 6:57:51 PM FINDINGS: Bones/joints: There is some cortical thinning and potentially tiny erosions along the lateral aspect of the distalmost fibula, with mild localized osteopenia in the region, suspicious for osteomyelitis. This was not evident on the prior CT. No similar changes are evident elsewhere. The joint spaces are normally aligned. There is a small knee joint effusion. The knee demonstrates degenerative changes, with moderate tricompartmental joint space narrowing and periarticular osteophyte formation. Osteochondral bodies are present in the medial and lateral compartments. There are also changes of prior repair of the anterior cruciate ligament. Soft tissues: There is moderate asymmetric confluent subcutaneous edema laterally over the right ankle extending into the dorsal lateral aspect of the midfoot. There appear to be foci of skin ulceration in this region. A few small foci of subcutaneous gas are present. No walled-off collection to indicate abscess is identified. The edema extends to the level of the bone, particularly the distal fibula. It also extends into the deeper plantar soft tissues over the midfoot, and a few tiny foci of gas are present adjacent to the navicular and middle, medial and lateral cuneiforms, along their plantar aspects, as well as between the lateral and middle cuneiforms. Some subcutaneous varices are noted. IMPRESSION: 1. Moderate subcutaneous edema laterally over the ankle and dorsal lateral aspect of the midfoot, with extension into the deeper plantar soft tissues over the midfoot. 2. Apparent skin ulcerations laterally over the ankle with a few small foci of subcutaneous gas here and in the deeper soft tissues adjacent to some of the tarsal bones as above. Findings suggest the given history of gangrene in the absence of debridement. 3. No discrete abscess identified. 4. Suspect osteomyelitis of the lateral aspect of the distal fibula. Consider correlation with three-phase bone scan or MRI. 5. Degenerative and postoperative changes of the knee as described. 6. Small knee joint effusion.
--- NOTE | 2019-12-16 04:38 | EDM.PDOC ---
ED HPI GENERAL MEDICAL PROBLEM - General Chief Complaint: Wound Recheck Stated Complaint: AMBULANCE Time Seen by Provider: 12/15/19 19:05 Source of Information: Reports: Patient, RN History Limitations: Reports: No Limitations - History of Present Illness INITIAL COMMENTS - FREE TEXT/NARRATIVE: ED with c/o increased pain to right foot, Has had wound x 2 months and not getting better, using silvadene cream. Reports doing dressing changes, has not been seen for at least one month. Diabetic , not taken any of his medications for at least 2 days. Pain with ambulation, makes him feel dizzy and nauseated. Has not been eating past couple of days. Fever and chills today. Treatments CREDIT VERIFICATION CLERK: Reports: IV/IO Right Foot Pain Score (Numeric/FACES): 9 - Related Data Allergies Allergy/AdvReac Type Severity Reaction Status Date / Time No Known Allergies Allergy Verified 12/15/19 19:21 Home Meds: Home Meds Aspirin [Ecotrin] 81 mg PO DAILY 06/11/18 [History] Furosemide [Lasix] 20 mg PO DAILY 06/11/18 [History] Insulin Detemir [Levemir Flextouch] 50 units SQ BID 06/11/18 [History] Levothyroxine Sodium [Synthroid] 150 mcg PO DAILY 06/11/18 [History] Lisinopril 20 mg PO DAILY 06/11/18 [History] Pioglitazone HCl [Actos] 30 mg PO DAILY 06/11/18 [History] atorvaSTATin [Lipitor] 20 mg PO DAILY 06/11/18 [History] carvediloL [Coreg] 25 mg PO DAILY 06/11/18 [History] metFORMIN HCl [Metformin HCl] 1,000 mg PO BID 06/11/18 [History] Gabapentin [Neurontin] 300 mg PO TID 09/12/19 [History] Insulin Aspart [NovoLOG] 22 units SQ TID 09/12/19 [History] Past Medical History HEENT History: Reports: None Cardiovascular History: Reports: Heart Failure, High Cholesterol, Hypertension, Other (See Below) Other Cardiovascular History: CARDIAC PACEMAKER PLACED 03/2009. ISCHEMIC VASCULAR DISEASE. LV DYSFUNCTION Respiratory History: Reports: None Gastrointestinal History: Reports: None Genitourinary History: Reports: None Musculoskeletal History: Reports: Arthritis Neurological History: Reports: None Psychiatric History: Reports: None Endocrine/Metabolic History: Reports: Diabetes, Type II Hematologic History: Reports: None Immunologic History: Reports: None Oncologic (Cancer) History: Reports: None Dermatologic History: Reports: None - Infectious Disease History Infectious Disease History: Reports: None - Past Surgical History Head Surgeries/Procedures: Reports: None Cardiovascular Surgical History: Reports: Pacer Other Cardiovascular Surgeries/Procedures: PACEMAKER PLACED 03/2009 GI Surgical History: Reports: Colonoscopy Social & Family History - Family History Family Medical History: Noncontributory - Tobacco Use Smoking Status *Q: Never Smoker - Caffeine Use Caffeine Use: Reports: Coffee - Recreational Drug Use Recreational Drug Use: No ED ROS GENERAL - Review of Systems Review Of Systems: Comprehensive ROS is negative, except as noted in HPI. ED EXAM, GENERAL - Physical Exam Exam: See Below Exam Limited By: No Limitations General Appearance: Alert, Anxious, Moderate Distress, Thin, Other (acidotic odor) Eye Exam: Bilateral Eye: EOMI, PERRL Ears: Normal External Exam, Hearing Grossly Normal Nose: Normal Inspection Throat/Mouth: Normal Inspection (membranes dry), Other Head: Atraumatic, Normocephalic Neck: Full Range of Motion Respiratory/Chest: No Respiratory Distress, Lungs Clear, Normal Breath Sounds Cardiovascular: Regular Rate, Rhythm, Tachycardia, Other (rare PC and PVC on monitor) GI/Abdominal: Normal Bowel Sounds, Soft Extremities: Leg Pain (right lower), Limited Range of Motion (right lower), Redness (right mid snell to toes, decreased pulses, large lateral and medial ulcers) Neurological: Alert, Oriented, Normal Cognition Psychiatric: Anxious Skin Exam: Warm, Dry, Wound/Incision (large dark soft sluffing ulcer 16cm x5 cm right lateral ankle, dark blue/black lesion dorsal medial foot, open deep ulcer medial posterior ankle. small amount yellow drainage, no odor. small [id number] ulcer left lateral ankle.). No: Intact Course - Vital Signs Last Recorded V/S: Last Vital Signs Temp 97.4 F 12/15/19 20:25 Pulse 116 H 12/15/19 20:25 Resp 26 H 12/15/19 20:25 BP 127/78 12/15/19 20:25 Pulse Ox 100 12/15/19 20:25 - Orders/Labs/Meds Orders: Active Orders 24 hr Category Date Time Status Blood Glucose Check, Bedside [RC] ONETIME Care 12/15/19 19:05 Active EKG 12 Lead [EKG Documentation Completion] [] URGENT Care 12/15/19 20:25 Active Glucose [Blood Glucose Check, Bedside] [RC] ONETIME Care 12/15/19 20:14 Active Glucose [Blood Glucose Check, Bedside] [] ONETIME Care 12/15/19 20:42 Active CULTURE BLOOD [BC] Stat Lab 12/15/19 19:16 Received CULTURE BLOOD [BC] Stat Lab 12/15/19 20:18 Received Blood Culture x2 Reflex Set [OM.PC] Stat Oth 12/15/19 19:05 Ordered Labs: Laboratory Tests 12/15/19 12/15/19 12/15/19 Range/Units 19:16 19:16 19:16 WBC 19.5 H (5.0-10.0) 10^3/uL RBC 5.28 (4.6-6.2) 10^6/uL Hgb 13.8 L (14.0-18.0) g/dL Hct 41.3 (40.0-54.0) % MCV 78.2 L (80-100) fL MCH 26.1 L (27.0-34.0) pg MCHC 33.4 (33.0-35.0) g/dL Plt Count 295 D (150-450) 10^3/uL Neut % (Auto) 89.1 H (42.2-75.2) % Lymph % (Auto) 4.2 L (20.5-50.1) % [place] % (Auto) 6.0 (2-8) % Eos % (Auto) 0.1 L (1.0-3.0) % Baso % (Auto) 0.6 (0.0-1.0) % Add Manual Diff Yes Neutrophils % (Manual) 86 H (42-75) % Band Neutrophils % 2 % Lymphocytes % (Manual) 6 L (20-50) % Monocytes % (Manual) 6 (2-8) % PT (9.0-12.0) SEC INR (0.9-1.2) ABG pH (7.35-7.45) ABG pCO2 (35-45) mmHg ABG pO2 (70-100) mmHg ABG HCO3 (22-26) mmol/L ABG O2 Saturation (95-100) % ABG Base Excess ((-2)-(+3)) mmol/L Maikel Test O2 Delivery Device Oxygen Flow Rate Sodium 127 L (136-145) mmol/L Potassium 4.3 (3.5-5.1) mmol/L Chloride 93 L (98-107) mmol/L Carbon Dioxide 5 L* D (21-32) mmol/L Anion Gap 33.3 H (7-13) mEq/L BUN 21 H (7-18) mg/dL Creatinine 1.44 H (0.70-1.30) mg/dL Est Cr Clr Drug Dosing TNP Estimated GFR (MDRD) 51 BUN/Creatinine Ratio 14.6 (No establ ref range) Glucose 565 H* (74-99) mg/dL Lactic Acid 1.4 (0.4-2.0) mmol/L Calcium 9.7 (8.5-10.1) mg/dL Magnesium 2.2 (1.8-2.4) mg/dL Total Bilirubin 0.5 (0.2-1.0) mg/dL AST 15 (15-37) U/L ALT 16 (16-63) U/L Alkaline Phosphatase 227 H (46-116) U/L B-Natriuretic Peptide TNP Total Protein 8.0 (6.4-8.2) g/dL Albumin 2.0 L (3.4-5.0) g/dL Globulin 6.0 Albumin/Globulin Ratio 0.33 Amylase 19 L (25-115) U/L Lipase 127 (73-393) U/L Ethyl Alcohol < 3 (0) mg/dL Ketones 12/15/19 12/15/19 12/15/19 Range/Units 19:16 19:16 19:55 WBC (5.0-10.0) 10^3/uL RBC (4.6-6.2) 10^6/uL Hgb (14.0-18.0) g/dL Hct (40.0-54.0) % MCV (80-100) fL MCH (27.0-34.0) pg MCHC (33.0-35.0) g/dL Plt Count (150-450) 10^3/uL Neut % (Auto) (42.2-75.2) % Lymph % (Auto) (20.5-50.1) % [place] % (Auto) (2-8) % Eos % (Auto) (1.0-3.0) % Baso % (Auto) (0.0-1.0) % Add Manual Diff Neutrophils % (Manual) (42-75) % Band Neutrophils % % Lymphocytes % (Manual) (20-50) % Monocytes % (Manual) (2-8) % PT 9.2 (9.0-12.0) SEC INR 1.0 (0.9-1.2) ABG pH 7.13 L* (7.35-7.45) ABG pCO2 13 L* (35-45) mmHg ABG pO2 59 L (70-100) mmHg ABG HCO3 4.2 L (22-26) mmol/L ABG O2 Saturation 84 L (95-100) % ABG Base Excess -24 L ((-2)-(+3)) mmol/L Maikel Test Lb O2 Delivery Device Room air Oxygen Flow Rate 0 Sodium (136-145) mmol/L Potassium (3.5-5.1) mmol/L Chloride (98-107) mmol/L Carbon Dioxide (21-32) mmol/L Anion Gap (7-13) mEq/L BUN (7-18) mg/dL Creatinine (0.70-1.30) mg/dL Est Cr Clr Drug Dosing Estimated GFR (MDRD) BUN/Creatinine Ratio (No establ ref range) Glucose (74-99) mg/dL Lactic Acid (0.4-2.0) mmol/L Calcium (8.5-10.1) mg/dL Magnesium (1.8-2.4) mg/dL Total Bilirubin (0.2-1.0) mg/dL AST (15-37) U/L ALT (16-63) U/L Alkaline Phosphatase (46-116) U/L B-Natriuretic Peptide Total Protein (6.4-8.2) g/dL Albumin (3.4-5.0) g/dL Globulin Albumin/Globulin Ratio Amylase (25-115) U/L Lipase (73-393) U/L Ethyl Alcohol (0) mg/dL Ketones Positive Meds: Medications Discontinued Medications Generic Name Dose Route Start Last Admin Trade Name Freq PRN Reason Stop Dose Admin Insulin Human Regular 100 unit 100 mls @ 9.05 mls/hr 12/15/19 19:38 06/10/20 20:23 / Sodium Chloride IV 12/16/19 06:40 0.1 units/kg/hr TITRATE ONE 9.05 mls/hr Administration Protocol 0.1 UNITS/KG/HR Sodium Chloride 1,000 mls @ 999 mls/hr 12/15/19 19:37 12/15/19 20:17 Normal Saline IV 12/15/19 20:37 999 mls/hr .BOLUS ONE Administration Piperacillin Sod/Tazobactam 100 mls @ 200 mls/hr 12/15/19 19:41 12/15/19 20: 22 Sod 3.375 gm/ Sodium Chloride IV 12/15/19 20:10 200 mls/hr ONETIME ONE Administration Sodium Chloride 1,000 mls @ 100 mls/hr 12/15/19 20:13 12/15/19 20:25 Normal Saline IV 12/16/19 06:12 100 mls/hr .BOLUS ONE Administration Sodium Chloride 1,000 mls @ 999 mls/hr 12/15/19 20:42 12/15/19 20:51 Normal Saline IV 12/15/19 21:42 Not Given .BOLUS ONE Insulin Human Regular 10 unit 12/15/19 19:37 12/15/19 19:49 Humulin R IV 12/15/19 19:38 10 units ONETIME ONE Administration Iopamidol 100 ml 12/15/19 19:33 12/15/19 20:36 Isovue-300 (61%) IVPUSH 12/15/19 19:34 100 ml ONETIME ONE Administration - Re-Assessments/Exams Free Text/Narrative Re-Assessment/Exam: Dr Bhat accepting patient. Tx via [place]. remains tachycardic, BP stable. Glucose elevated, IV fluids, and insulin infusing. Cultures obtained and antibiotic initiated. Departure - Departure Time of Disposition: 21:00 Disposition: DC/Tfer to Acute Hospital 02 Condition: Critical Clinical Impression: Noncompliance with medication regimen Cellulitis Qualifiers: Site of cellulitis: extremity Site of cellulitis of extremity: lower extremity Laterality: right Qualified Code(s): L03.115 - Cellulitis of right lower limb Ankle ulcer Qualifiers: Laterality: right Non-pressure ulcer stage: unspecified non-pressure ulcer stage Qualified Code(s): L97.319 - Non-pressure chronic ulcer of right ankle with unspecified severity DKA (diabetic ketoacidoses) Qualifiers: Diabetes mellitus type: type 1 Diabetes mellitus complication detail: without coma Qualified Code(s): E10.10 - Type 1 diabetes mellitus with ketoacidosis without coma - Discharge Information *PRESCRIPTION DRUG MONITORING PROGRAM REVIEWED*: No *COPY OF PRESCRIPTION DRUG MONITORING REPORT IN PATIENT ALISA: No Referrals: PCP,None [Primary Care Provider] - Sepsis Event Note (ED) - Evaluation Sepsis Screening Result: No Definite Risk - Focused Exam Vital Signs: Vital Signs Temp Pulse Resp BP Pulse Ox 12/15/19 20:25 97.4 F 116 H 26 H 127/78 100 12/15/19 19:01 98 F 113 H 18 109/79 100 - My Orders Last 24 Hours: My Active Orders 12/15/19 19:05 Blood Glucose Check, Bedside [RC] ONETIME Blood Culture x2 Reflex Set [OM.PC] Stat 12/15/19 19:16 CULTURE BLOOD [BC] Stat 12/15/19 20:14 Glucose [Blood Glucose Check, Bedside] [RC] ONETIME 12/15/19 20:18 CULTURE BLOOD [BC] Stat 12/15/19 20:25 EKG 12 Lead [EKG Documentation Completion] [RC] URGENT 12/15/19 20:42 Glucose [Blood Glucose Check, Bedside] [RC] ONETIME - Assessment/Plan Last 24 Hours: My Active Orders 12/15/19 19:05 Blood Glucose Check, Bedside [RC] ONETIME Blood Culture x2 Reflex Set [OM.PC] Stat 12/15/19 19:16 CULTURE BLOOD [BC] Stat 12/15/19 20:14 Glucose [Blood Glucose Check, Bedside] [RC] ONETIME 12/15/19 20:18 CULTURE BLOOD [BC] Stat 12/15/19 20:25 EKG 12 Lead [EKG Documentation Completion] [RC] URGENT 12/15/19 20:42 Glucose [Blood Glucose Check, Bedside] [RC] ONETIME
== END 2019-12-15 21:01 ==
LOC: DL.ED 18:57
DX: L03.115 Cellulitis of right lower limb (principal); E10.10 Type 1 diabetes mellitus with ketoacidosis without coma; E10.622 Type 1 diabetes mellitus with other skin ulcer; L97.319 Non-pressure chronic ulcer of right ankle with unspecified severity; I11.0 Hypertensive heart disease with heart failure; I50.9 Heart failure, unspecified; E78.00 Pure hypercholesterolemia, unspecified; Z79.899 Other long term (current) drug therapy; Z79.82 Long term (current) use of aspirin; Z91.14 Patient's other noncompliance with medication regimen
CPT/HCPCS: 36415; 36600; 73701; 80053; 80307; 82009; 82150; 82803; 82962; 83605; 83690; 83735; 85025; 85610; 87040; 93005; 96365; 99285; J1815; J2543; J7030; J7050; Q9967

== ENCOUNTER 2020-01-09 07:15 | Emergency (ER) | payer MEDICAID ==
--- NOTE | 2020-01-09 07:38 | EDM.PDOC ---
ED HPI GENERAL MEDICAL PROBLEM - General Chief Complaint: General Stated Complaint: AMBULANCE Time Seen by Provider: 01/09/20 07:38 Source of Information: Reports: Patient, Old Records, RN, RN Notes Reviewed History Limitations: Reports: No Limitations - History of Present Illness INITIAL COMMENTS - FREE TEXT/NARRATIVE: Pt arrives to ER from home with c/o feeling very anxious and agitated which he believes is caused by the Oxycodone he was prescribed for pain s/p right BKA on December 18. Pt states he cannot sleep when he takes that medicine, and he is afraid to deviate from the instructions of his prescriptions. He is also very concerned about edema in the left leg and foot which has persisted for about 3 weeks now. Pt states his pain is not a problem, and is tolerable. He states he is not short of breath while sitting still or with speaking, but with any activity he is "easily winded". He has a f/u appointment in [place] tomorrow, but he was anxious and couldn't wait, so he called 911. He denies fever, chills, cough, chest pain, orthopnea, or surgical wound drainage. Duration: Week(s): (3\\), Constant Location: Reports: Generalized Quality: Reports: Other (Denies pain) Severity: Severe Improves with: Reports: None Worsens with: Reports: Medication (Oxycodone) Associated Symptoms: Reports: No Other Symptoms Treatments [employer]: Reports: Other Medication(s) - Related Data Allergies Allergy/AdvReac Type Severity Reaction Status Date / Time No Known Allergies Allergy Verified 01/09/20 07:25 Home Meds: Home Meds Aspirin [Ecotrin] 81 mg PO DAILY 06/11/18 [History] Furosemide [Lasix] 20 mg PO DAILY 06/11/18 [History] Insulin Detemir [Levemir Flextouch] 50 units SQ BID 06/11/18 [History] Levothyroxine Sodium [Synthroid] 150 mcg PO DAILY 06/11/18 [History] Lisinopril 20 mg PO DAILY 06/11/18 [History] Pioglitazone HCl [Actos] 30 mg PO DAILY 06/11/18 [History] atorvaSTATin [Lipitor] 20 mg PO DAILY 06/11/18 [History] carvediloL [Coreg] 25 mg PO DAILY 06/11/18 [History] metFORMIN HCl [Metformin HCl] 1,000 mg PO BID 06/11/18 [History] Gabapentin [Neurontin] 300 mg PO TID 09/12/19 [History] Insulin Aspart [NovoLOG] 22 units SQ TID 09/12/19 [History] oxyCODONE 5 mg PO Q4H PRN 01/09/20 [History] Past Medical History HEENT History: Reports: None Cardiovascular History: Reports: Heart Failure, High Cholesterol, Hypertension, Other (See Below) Other Cardiovascular History: CARDIAC PACEMAKER PLACED 03/2009. ISCHEMIC VASCULAR DISEASE. LV DYSFUNCTION Respiratory History: Reports: None Gastrointestinal History: Reports: None Genitourinary History: Reports: None Musculoskeletal History: Reports: Arthritis Neurological History: Reports: None Psychiatric History: Reports: None Endocrine/Metabolic History: Reports: Diabetes, Type II Hematologic History: Reports: None Immunologic History: Reports: None Oncologic (Cancer) History: Reports: None Dermatologic History: Reports: None - Infectious Disease History Infectious Disease History: Reports: None - Past Surgical History Head Surgeries/Procedures: Reports: None Cardiovascular Surgical History: Reports: Pacer Other Cardiovascular Surgeries/Procedures: PACEMAKER PLACED 03/2009 GI Surgical History: Reports: Colonoscopy Musculoskeletal Surgical History: Reports: Amputation (Rt BKA) Social & Family History - Family History Family Medical History: Noncontributory - Caffeine Use Caffeine Use: Reports: Coffee - Living Situation & Occupation Living situation: Reports: with Family Occupation: Disabled ED ROS GENERAL - Review of Systems Review Of Systems: Comprehensive ROS is negative, except as noted in HPI. ED EXAM, GENERAL - Physical Exam Exam: See Below Exam Limited By: No Limitations General Appearance: Alert, Anxious, Other (Chronically ill appearing) Throat/Mouth: Normal Inspection, Normal Lips, Normal Voice, No Airway Compromise Head: Atraumatic, Normocephalic Neck: Normal Inspection Respiratory/Chest: No Respiratory Distress, Lungs Clear, No Accessory Muscle Use, Chest Non-Tender, Decreased Breath Sounds Cardiovascular: Regular Rate, Rhythm, Tachycardia, Other (Left lower extremity with +2 pitting edema from foot to distal thigh) GI/Abdominal: Normal Bowel Sounds, Soft, Non-Tender Back Exam: Normal Inspection Extremities: Pedal Edema (Left), Other (S/P Rt BKA with radha intact, no erythema or drainage). No: Joint Swelling, Increased Warmth, Mottled, Pallor, Redness Neurological: Alert, Oriented, CN II-XII Intact, Normal Cognition, No Motor/Sensory Deficits Psychiatric: Anxious, Flat Affect Skin Exam: Warm, Dry, Intact Course - Vital Signs Last Recorded V/S: Last Vital Signs Temp 97.4 F 01/09/20 07:16 Pulse 103 H 01/09/20 07:16 Resp 20 01/09/20 07:16 BP 143/87 H 01/09/20 07:16 Pulse Ox 98 01/09/20 07:16 - Orders/Labs/Meds Orders: Active Orders 24 hr Category Date Time Status Chest 1V Frontal [CR] Stat Exams 01/09/20 07:42 Ordered Furosemide [Lasix] Med 01/09/20 08:24 Once 80 mg PO ONETIME ONE Potassium Chloride [Klor-Con 10] Med 01/09/20 08:23 Once 40 meq PO ONETIME ONE Labs: Laboratory Tests 01/09/20 01/09/20 Range/Units 07:50 07:50 WBC 5.8 (5.0-10.0) 10^3/uL RBC 3.86 L (4.6-6.2) 10^6/uL Hgb 10.0 L D (14.0-18.0) g/dL Hct 31.7 L (40.0-54.0) % MCV 82.1 D (80-100) fL MCH 25.9 L (27.0-34.0) pg MCHC 31.5 L (33.0-35.0) g/dL Plt Count 352 (150-450) 10^3/uL Neut % (Auto) 69.1 (42.2-75.2) % Lymph % (Auto) 16.4 L (20.5-50.1) % [place] % (Auto) 12.8 H (2-8) % Eos % (Auto) 1.4 (1.0-3.0) % Baso % (Auto) 0.3 (0.0-1.0) % Sodium 140 D (136-145) mmol/L Potassium 4.4 (3.5-5.1) mmol/L Chloride 106 D (98-107) mmol/L Carbon Dioxide 28 D (21-32) mmol/L Anion Gap 10.4 (7-13) mEq/L BUN 17 (7-18) mg/dL Creatinine 1.34 H (0.70-1.30) mg/dL Est Cr Clr Drug Dosing 63.02 mL/min Estimated GFR (MDRD) 56 BUN/Creatinine Ratio 12.7 (No establ ref range) Glucose 266 H (74-99) mg/dL Calcium 9.1 (8.5-10.1) mg/dL Total Bilirubin 0.4 (0.2-1.0) mg/dL AST 14 L (15-37) U/L ALT 17 (16-63) U/L Alkaline Phosphatase 158 H (46-116) U/L B-Natriuretic Peptide 1840 H (0-100) pg/ml Total Protein 7.7 (6.4-8.2) g/dL Albumin 2.4 L (3.4-5.0) g/dL Globulin 5.3 Albumin/Globulin Ratio 0.45 Meds: Medications Discontinued Medications Generic Name Dose Route Start Last Admin Trade Name Freq PRN Reason Stop Dose Admin Lorazepam 1 mg 01/09/20 07:41 01/09/20 07:50 Ativan PO 01/09/20 07:42 1 mg ONETIME ONE Administration Departure - Departure Time of Disposition: 08:22 Disposition: Home, Self-Care 01 Condition: Fair Clinical Impression: Anxiety about health Acute exacerbation of CHF (congestive heart failure) Qualifiers: Heart failure type: unspecified Qualified Code(s): I50.9 - Heart failure, unspecified - Discharge Information *PRESCRIPTION DRUG MONITORING PROGRAM REVIEWED*: Not Applicable *COPY OF PRESCRIPTION DRUG MONITORING REPORT IN PATIENT ALISA: Not Applicable Instructions: Living With Anxiety, Heart Failure Exacerbation Forms: ED Department Discharge Additional Instructions: Rx: Clonazepam 1mg Increase your Furosemide 20mg to 2 tablets every morning and 2 tablets every afternoon for the next 3 days, then follow up in clinic for recheck of your leg swelling (fluid overload). Sepsis Event Note (ED) - Focused Exam Vital Signs: Vital Signs Temp Pulse Resp BP Pulse Ox 01/09/20 07:16 97.4 F 103 H 20 143/87 H 98 - My Orders Last 24 Hours: My Active Orders 01/09/20 07:42 Chest 1V Frontal [CR] Stat 01/09/20 08:23 Potassium Chloride [Klor-Con 10] 40 meq PO ONETIME ONE 01/09/20 08:24 Furosemide [Lasix] 80 mg PO ONETIME ONE - Assessment/Plan Last 24 Hours: My Active Orders 01/09/20 07:42 Chest 1V Frontal [CR] Stat 01/09/20 08:23 Potassium Chloride [Klor-Con 10] 40 meq PO ONETIME ONE 01/09/20 08:24 Furosemide [Lasix] 80 mg PO ONETIME ONE
[2020-01-09 07:41] VITALS: BP 143/87; PULSE 103
[2020-01-09] MEDS ORDERED: LORazepam 1 MG Tab PO ONE (07:41)
[2020-01-09 08:21] LABS: ANION GAP 10.4 mEq/L (7-13)
[2020-01-09] MEDS ORDERED: Potassium Chloride 10 MEQ Tab.ER PO ONE (08:23)
[2020-01-09] MEDS ORDERED: Furosemide 80 MG Tab PO ONE (08:24)
[2020-01-09] MEDS ORDERED: Furosemide 40 MG Tab ONE (08:28)
--- NOTE | 2020-01-09 08:34 | CR ---
PROCEDURE INFORMATION: Exam: XR Chest, 1 View Exam date and time: 01/09/2020 8:03 AM Age: 54 years old Clinical indication: Shortness of breath; Prior surgery; Surgery date: 6+ months; Surgery type: Pacemaker; Additional info: Edema, shortness of breath TECHNIQUE: Imaging protocol: XR of the chest Views: Frontal portable view of the chest. COMPARISON: CR CHEST PA/LAT 05/12/2011 8:25 AM FINDINGS: Tubes, catheters and devices: A single lead left subclavian permanent AICD pacemaker is present. The right ventricular lead appears to be in good position. Lungs: The pulmonary vasculature is slightly more congested and ill-defined. Right superior parahilar interval mild pulmonary infiltrate. Mild medial right basilar pulmonary subsegmental atelectasis. Mild left central basilar subsegmental atelectasis. The lungs are otherwise peripherally clear bilaterally. Pleural space: No pleural effusion. No pneumothorax. Heart/Mediastinum: Stable moderate cardiomegaly. Mediastinum: Stable. Bones/joints: Stable. IMPRESSION: 1. Slightly increased pulmonary vascular congestion. 2. Right superior parahilar interval mild pulmonary infiltrate. Early pneumonitis is difficult to exclude. Clinical correlation is recommended. 3. Mild medial right basilar pulmonary subsegmental atelectasis. 4. Mild left central basilar subsegmental atelectasis.
== END 2020-01-09 08:49 | disposition home or self-care (01) ==
LOC: DL.ED 07:15
DX: F41.9 Anxiety disorder, unspecified (principal); I11.0 Hypertensive heart disease with heart failure; I50.9 Heart failure, unspecified; E78.00 Pure hypercholesterolemia, unspecified; M19.90 Unspecified osteoarthritis, unspecified site; E11.9 Type 2 diabetes mellitus without complications; Z79.82 Long term (current) use of aspirin; Z79.4 Long term (current) use of insulin; Z79.899 Other long term (current) drug therapy
CPT/HCPCS: 36415; 71045; 80053; 83880; 85025; 99285; A9270

== ENCOUNTER 2020-05-10 22:15 | Emergency (ER) | payer MEDICAID ==
[2020-05-10 23:05] LABS: ANION GAP 13.4 mEq/L (7-13); CHLORIDE,CL 100 mmol/L (98-107); SODIUM,NA 136 mmol/L (136-145)
--- NOTE | 2020-05-10 23:18 | EDM.PDOC ---
ED HPI GENERAL MEDICAL PROBLEM - General Chief Complaint: Respiratory Problem Stated Complaint: HEART PACE MAKER PROBLEMS Time Seen by Provider: 05/10/20 23:05 Source of Information: Reports: Patient History Limitations: Reports: No Limitations - History of Present Illness INITIAL COMMENTS - FREE TEXT/NARRATIVE: This 55 yo male patient reports to the ED due to 1) inability to sleep, 2) diffuse abdominal pain, 3) shortness of breath and 4) rapid heart rate. The patient reports he has not been able to get to sleep for at least 2-3 weeks until about 4 am. The patient reports his abdominal pain has been present for about 3 weeks (he was scheduled for a CT today, but did not have a ride). The patient reports his shortness of breath has been present for at least 2 weeks and has not gotten any worse. The patient reports he went to the ambulance service in [facility] and was told about the rapid heart rate just prior to arrival in the ED. Onset: Unknown/Unsure Duration: Week(s):, Constant Location: Reports: Chest, Abdomen, Generalized Quality: Reports: Other Severity: Moderate Improves with: Reports: None Worsens with: Reports: None Context: Reports: Other Associated Symptoms: Reports: Shortness of Breath Bilateral Middle Back Pain Score (Numeric/FACES): 5 - Related Data Allergies Allergy/AdvReac Type Severity Reaction Status Date / Time No Known Allergies Allergy Verified 05/10/20 22:36 Home Meds: Home Meds Aspirin [Ecotrin] 81 mg PO DAILY 06/11/18 [History] Insulin Detemir [Levemir Flextouch] 27 units SQ BID 06/11/18 [History] Gabapentin [Neurontin] 300 mg PO TID 09/12/19 [History] Insulin Aspart [NovoLOG] 8 units SQ TID 09/12/19 [History] Cholecalciferol (Vitamin D3) [Vitamin D3] 1,000 unit PO DAILY 01/31/20 [History] DULoxetine [Cymbalta] 60 mg PO DAILY 01/31/20 [History] Levothyroxine 200 mcg PO DAILY 01/31/20 [History] Omeprazole 20 mg PO DAILY 01/31/20 [History] atorvaSTATin [Lipitor] 40 mg PO BEDTIME 01/31/20 [History] carvediloL [Carvedilol] 3.125 mg PO BID 01/31/20 [History] lisinopriL [Lisinopril] 2.5 mg PO DAILY 01/31/20 [History] metFORMIN [Glucophage XR] 500 mg PO BIDMEALS 01/31/20 [History] Past Medical History HEENT History: Reports: None Cardiovascular History: Reports: Heart Failure, High Cholesterol, Hypertension, Other (See Below) Other Cardiovascular History: CARDIAC PACEMAKER PLACED 03/2009. ISCHEMIC VASCULAR DISEASE. LV DYSFUNCTION Respiratory History: Reports: None Gastrointestinal History: Reports: None Genitourinary History: Reports: None Musculoskeletal History: Reports: Arthritis Neurological History: Reports: None Psychiatric History: Reports: None Endocrine/Metabolic History: Reports: Diabetes, Type II Hematologic History: Reports: None Immunologic History: Reports: None Oncologic (Cancer) History: Reports: None Dermatologic History: Reports: None - Infectious Disease History Infectious Disease History: Reports: None - Past Surgical History Head Surgeries/Procedures: Reports: None Cardiovascular Surgical History: Reports: Pacer Other Cardiovascular Surgeries/Procedures: PACEMAKER PLACED 03/2009 GI Surgical History: Reports: Colonoscopy Musculoskeletal Surgical History: Reports: Amputation (Rt BKA) Social & Family History - Family History Family Medical History: Noncontributory - Caffeine Use Caffeine Use: Reports: Coffee - Living Situation & Occupation Living situation: Reports: with Family Occupation: Disabled ED ROS GENERAL - Review of Systems Review Of Systems: Comprehensive ROS is negative, except as noted in HPI. ED EXAM, GENERAL - Physical Exam Exam: See Below Exam Limited By: No Limitations General Appearance: Alert, WD/WN, Moderate Distress Eye Exam: Bilateral Eye: EOMI, Normal Inspection, PERRL Ears: Normal External Exam, Normal Canal, Hearing Grossly Normal, Normal TMs Nose: Normal Inspection, Normal Mucosa, No Blood Throat/Mouth: Normal Inspection, Normal Lips, Normal Teeth, Normal Gums, Normal Oropharynx, Normal Voice, No Airway Compromise Head: Atraumatic, Normocephalic Neck: Normal Inspection, Supple, Non-Tender, Full Range of Motion Respiratory/Chest: No Respiratory Distress, Lungs Clear, Normal Breath Sounds, No Accessory Muscle Use, Chest Non-Tender Cardiovascular: Tachycardia GI/Abdominal: Normal Bowel Sounds, Tender (diffuse upper abdominal tenderness) (Male) Exam: Deferred Rectal (Males) Exam: Deferred Extremities: Other (Right below the knee amputation. Left lower extremity is cool to touch (patient reports that has been present since December)) Neurological: Alert, Oriented, CN II-XII Intact, Normal Cognition Psychiatric: Normal Affect, Normal Mood Lymphatic: No Adenopathy Course - Vital Signs Last Recorded V/S: Last Vital Signs Temp 36.1 C 05/10/20 23:45 Pulse 129 H 05/10/20 23:45 Resp 24 H 05/10/20 23:45 BP 102/78 05/10/20 23:45 Pulse Ox 96 05/10/20 23:45 - Orders/Labs/Meds Orders: Active Orders 24 hr Category Date Time Status EKG Documentation Completion [RC] STAT Care 05/10/20 22:29 Active CULTURE BLOOD [BC] Stat Lab 05/10/20 23:18 Received REFLEX LACTIC ACID YES OR NO [CHEM] Routine Lab 05/10/20 23:22 Received Heparin Sodium/0.45% NaCl [Heparin 25,000 Units in 1/2 Med 05/11/20 00:15 Ordered NS 500 ML] 25,000 units in 500 ml IV NOW Medication Orders Heparin Sodium/Sodium Chloride (Heparin 25,000 Units In 1/2 Ns 500 Ml) 25,000 units in 500 mls @ 21.119 mls/hr IV NOW STA Stop: 05/11/20 23:55 Labs: Laboratory Tests 05/10/20 05/10/20 05/10/20 Range/Units 22:36 22:36 22:36 WBC 5.3 (5.0-10.0) 10^3/uL RBC 4.67 (4.6-6.2) 10^6/uL Hgb 12.4 L D (14.0-18.0) g/dL Hct 37.1 L (40.0-54.0) % MCV 79.4 L (80-100) fL MCH 26.6 L (27.0-34.0) pg MCHC 33.4 (33.0-35.0) g/dL Plt Count 178 D (150-450) 10^3/uL Neut % (Auto) 59.0 (42.2-75.2) % Lymph % (Auto) 29.4 (20.5-50.1) % Coles % (Auto) 9.9 H (2-8) % Eos % (Auto) 1.1 (1.0-3.0) % Baso % (Auto) 0.6 (0.0-1.0) % Sodium 136 (136-145) mmol/L Potassium 4.4 (3.5-5.1) mmol/L Chloride 100 (98-107) mmol/L Carbon Dioxide 27 (21-32) mmol/L Anion Gap 13.4 H (7-13) mEq/L BUN 19 H (7-18) mg/dL Creatinine 1.15 (0.70-1.30) mg/dL Est Cr Clr Drug Dosing 79.66 mL/min Estimated GFR (MDRD) > 60 BUN/Creatinine Ratio 16.5 (No establ ref range) Glucose 490 H* (74-99) mg/dL Lactic Acid 2.4 H* (0.4-2.0) mmol/L Calcium 8.6 (8.5-10.1) mg/dL Total Bilirubin 0.6 (0.2-1.0) mg/dL AST 25 (15-37) U/L ALT 34 (16-63) U/L Alkaline Phosphatase 172 H (46-116) U/L Ammonia (11-32) umol/L Troponin I 0.156 H* (0.000-0.056) ng/mL B-Natriuretic Peptide 1750 H (0-100) pg/ml Total Protein 6.7 (6.4-8.2) g/dL Albumin 2.8 L (3.4-5.0) g/dL Globulin 3.9 Albumin/Globulin Ratio 0.72 Amylase 15 L (25-115) U/L Lipase 40 L (73-393) U/L SARS CoV-2 RNA Rapid CHARLENE (NEGATIVE) 05/10/20 05/10/20 Range/Units 22:36 22:47 WBC (5.0-10.0) 10^3/uL RBC (4.6-6.2) 10^6/uL Hgb (14.0-18.0) g/dL Hct (40.0-54.0) % MCV (80-100) fL MCH (27.0-34.0) pg MCHC (33.0-35.0) g/dL Plt Count (150-450) 10^3/uL Neut % (Auto) (42.2-75.2) % Lymph % (Auto) (20.5-50.1) % Coles % (Auto) (2-8) % Eos % (Auto) (1.0-3.0) % Baso % (Auto) (0.0-1.0) % Sodium (136-145) mmol/L Potassium (3.5-5.1) mmol/L Chloride (98-107) mmol/L Carbon Dioxide (21-32) mmol/L Anion Gap (7-13) mEq/L BUN (7-18) mg/dL Creatinine (0.70-1.30) mg/dL Est Cr Clr Drug Dosing mL/min Estimated GFR (MDRD) BUN/Creatinine Ratio (No establ ref range) Glucose (74-99) mg/dL Lactic Acid (0.4-2.0) mmol/L Calcium (8.5-10.1) mg/dL Total Bilirubin (0.2-1.0) mg/dL AST (15-37) U/L ALT (16-63) U/L Alkaline Phosphatase (46-116) U/L Ammonia 16 (11-32) umol/L Troponin I (0.000-0.056) ng/mL B-Natriuretic Peptide (0-100) pg/ml Total Protein (6.4-8.2) g/dL Albumin (3.4-5.0) g/dL Globulin Albumin/Globulin Ratio Amylase (25-115) U/L Lipase (73-393) U/L SARS CoV-2 RNA Rapid CHARLENE Negative (NEGATIVE) Meds: Medications Generic Name Dose Route Start Last Admin Trade Name Freq PRN Reason Stop Dose Admin Heparin Sodium/Sodium Chloride 25,000 units in 500 mls @ 21.119 mls/hr 05/11/20 00:15 Heparin 25,000 Units In 1/2 Ns 500 Ml IV 05/11/20 23:55 NOW STA 12 UNITS/KG/HR Discontinued Medications Generic Name Dose Route Start Last Admin Trade Name Freq PRN Reason Stop Dose Admin Aspirin 324 mg 05/11/20 00:15 Aspirin PO 05/11/20 00:16 ONETIME ONE Furosemide 20 mg 05/10/20 23:24 05/10/20 23:30 Lasix IVPUSH 05/10/20 23:25 20 mg ONETIME ONE Administration Heparin Sodium (Porcine) 4,000 units 05/11/20 00:15 Heparin Sodium IVPUSH 05/11/20 00:16 .BOLUS ONE Departure - Departure Time of Disposition: 00:20 Disposition: DC/Tfer to Acute Hospital 02 Condition: Serious Clinical Impression: NSTEMI (non-ST elevated myocardial infarction), Shortness of breath, Elevated troponin - Discharge Information *PRESCRIPTION DRUG MONITORING PROGRAM REVIEWED*: Not Applicable *COPY OF PRESCRIPTION DRUG MONITORING REPORT IN PATIENT ALISA: Not Applicable Forms: Interfacility Transfer EMTALA Care Plan Goals: Discussed the patient's history, examination, lab, EKG and x-ray results with Dr. Whittington ([facility]). Dr. Whittington accepted the patient for continued evaluation and management as an inpatient at [facility]. The patient will be transported by [facility]. Sepsis Event Note (ED) - Evaluation Sepsis Screening Result: No Definite Risk - Focused Exam Vital Signs: Vital Signs Temp Pulse Resp BP Pulse Ox 05/10/20 23:45 36.1 C 129 H 24 H 102/78 96 05/10/20 22:26 35.7 C L 124 H 26 H 105/81 100 - My Orders Last 24 Hours: My Active Orders 05/10/20 22:29 EKG Documentation Completion [RC] STAT 05/10/20 23:18 CULTURE BLOOD [BC] Stat 05/10/20 23:22 REFLEX LACTIC ACID YES OR NO [CHEM] Routine 05/11/20 00:15 Heparin Sodium/0.45% NaCl [Heparin 25,000 Units in 1/2 NS 500 ML] 25,000 units in 500 ml IV NOW - Assessment/Plan Last 24 Hours: My Active Orders 05/10/20 22:29 EKG Documentation Completion [RC] STAT 05/10/20 23:18 CULTURE BLOOD [BC] Stat 05/10/20 23:22 REFLEX LACTIC ACID YES OR NO [CHEM] Routine 05/11/20 00:15 Heparin Sodium/0.45% NaCl [Heparin 25,000 Units in 1/2 NS 500 ML] 25,000 units in 500 ml IV NOW
[2020-05-10] MEDS ORDERED: Furosemide 20 MG/2 ML VIAL IVPUSH ONE (23:24)
[2020-05-10 23:46] VITALS: BP 102/78; PULSE 129
--- NOTE | 2020-05-10 23:52 | CR ---
PROCEDURE INFORMATION: Exam: XR Chest, 1 View Exam date and time: 05/10/2020 11:27 PM Age: 55 years old Clinical indication: Shortness of breath; Additional info: Short of breath TECHNIQUE: Imaging protocol: XR of the chest Views: 1 view. COMPARISON: CR Chest 1V Frontal 01/09/2020 8:03 AM FINDINGS: Lungs: Clear lungs. No edema. No consolidation or infiltrates. Pleural space: No pleural effusions. Heart/Mediastinum: Moderate to severe cardiomegaly. Left subclavian AICD device. Bones/joints: Unremarkable. IMPRESSION: 1. No lung infiltrates or edema. 2. Cardiomegaly. 3. Left chest subclavian pacer/AICD
[2020-05-11] MEDS ORDERED: Heparin Sodium/0.45% NaCl 25,000 UNITS/500 ML BAG IV STA (00:15)
[2020-05-11] MEDS ORDERED: Heparin Sodium 5,000 Units/ML Vial IVPUSH ONE (00:15)
[2020-05-11] MEDS ORDERED: Aspirin 81 MG Tab.Chew PO ONE (00:15)
== END 2020-05-11 01:05 ==
LOC: DL.ED 22:15
DX: I21.4 Non-ST elevation (NSTEMI) myocardial infarction (principal); I11.0 Hypertensive heart disease with heart failure; I50.9 Heart failure, unspecified; E78.00 Pure hypercholesterolemia, unspecified; M19.90 Unspecified osteoarthritis, unspecified site; E11.9 Type 2 diabetes mellitus without complications; Z79.82 Long term (current) use of aspirin; Z79.4 Long term (current) use of insulin; Z79.899 Other long term (current) drug therapy; R79.89 Other specified abnormal findings of blood chemistry; Z20.828 Contact with and (suspected) exposure to other viral communicable diseases
CPT/HCPCS: 36415; 71045; 80053; 82140; 82150; 83605; 83690; 83880; 84484; 85025; 87040; 87635; 93005; 96365; 96375; 99285; A9270; J1644; J1940; U0002

== ENCOUNTER 2020-06-03 07:02 | Emergency (ER) | payer MEDICAID ==
[2020-06-03 07:26] VITALS: BP 110/83; PULSE 103
--- NOTE | 2020-06-03 08:13 | EDM.PDOC ---
ED HPI GENERAL MEDICAL PROBLEM - General Chief Complaint: Chest Pain Stated Complaint: AMBULANCE Time Seen by Provider: 06/03/20 07:59 Source of Information: Reports: Patient History Limitations: Reports: No Limitations - History of Present Illness INITIAL COMMENTS - FREE TEXT/NARRATIVE: Patient is here for chest tightness and shortness of breath it started over a week ago when he was discharged from [facility]. He states that they found fluid around his heart and started him on a water pill. He doesn't feel like he is urinating as much as he should with the water pill. He finally came in today as he has not been able to sleep due to the shortness of breath. He reports he can lay flat, but cannot seem to catch his breath and has to get up again. No fevers or chills. No other cold symptoms. No known sick contacts. Patient noted that it has been a few weeks since he has had a normal bowel movement. He will sit on the toilet to go, but only a little bit and some gas come out. He has not been able to eat much for the last few days as he gets full with just a little bit. He noted that his glucose was low this morning, in the 40s, due to not eating well for a few days. Location: Reports: Chest - Related Data Allergies Allergy/AdvReac Type Severity Reaction Status Date / Time No Known Allergies Allergy Verified 05/10/20 22:36 Home Meds: Home Meds Aspirin [Ecotrin] 81 mg PO DAILY 06/11/18 [History] Insulin Detemir [Levemir Flextouch] 27 units SQ BID 06/11/18 [History] Insulin Aspart [NovoLOG] 8 units SQ TID 09/12/19 [History] RX: Gabapentin [Neurontin] 300 mg PO TID 09/12/19 [History] RX: Cholecalciferol (Vitamin D3) [Vitamin D3] 1,000 unit PO DAILY 01/31/20 [History] RX: DULoxetine [Cymbalta] 60 mg PO DAILY 01/31/20 [History] RX: Levothyroxine 200 mcg PO DAILY 01/31/20 [History] RX: Omeprazole 20 mg PO DAILY 01/31/20 [History] RX: atorvaSTATin [Lipitor] 40 mg PO BEDTIME 01/31/20 [History] RX: metFORMIN [Glucophage XR] 500 mg PO BIDMEALS 01/31/20 [History] carvediloL [Carvedilol] 3.125 mg PO BID 01/31/20 [History] lisinopriL [Lisinopril] 2.5 mg PO DAILY 01/31/20 [History] Past Medical History HEENT History: Reports: None Cardiovascular History: Reports: Heart Failure, High Cholesterol, Hypertension, Other (See Below) Other Cardiovascular History: CARDIAC PACEMAKER PLACED 03/2009. ISCHEMIC VASCULAR DISEASE. LV DYSFUNCTION Respiratory History: Reports: None Gastrointestinal History: Reports: None Genitourinary History: Reports: None Musculoskeletal History: Reports: Arthritis Neurological History: Reports: None Psychiatric History: Reports: None Endocrine/Metabolic History: Reports: Diabetes, Type II Hematologic History: Reports: None Immunologic History: Reports: None Oncologic (Cancer) History: Reports: None Dermatologic History: Reports: None - Infectious Disease History Infectious Disease History: Reports: None - Past Surgical History Head Surgeries/Procedures: Reports: None Cardiovascular Surgical History: Reports: Pacer Other Cardiovascular Surgeries/Procedures: PACEMAKER PLACED 03/2009 GI Surgical History: Reports: Colonoscopy Musculoskeletal Surgical History: Reports: Amputation (Rt BKA) Social & Family History - Family History Family Medical History: No Pertinent Family History - Caffeine Use Caffeine Use: Reports: Coffee - Living Situation & Occupation Living situation: Reports: with Family Occupation: Disabled ED ROS GENERAL - Review of Systems Review Of Systems: Comprehensive ROS is negative, except as noted in HPI. ED EXAM, GENERAL - Physical Exam Exam: See Below Exam Limited By: No Limitations General Appearance: Alert, WD/WN, No Apparent Distress Eye Exam: Bilateral Eye: Normal Inspection Head: Atraumatic, Normocephalic Neck: Normal Inspection, Supple Respiratory/Chest: No Respiratory Distress, Lungs Clear, Normal Breath Sounds, No Accessory Muscle Use, Chest Non-Tender Cardiovascular: Normal Peripheral Pulses, Regular Rate, Rhythm, No Edema, No Gallop, No Murmur, No Rub GI/Abdominal: Soft, Non-Tender, No Distention, No Mass. No: Guarding, Rebound (Male) Exam: Deferred Rectal (Males) Exam: Deferred Back Exam: Normal Inspection, Full Range of Motion, NT Extremities: No Pedal Edema, Other (right lower extremity amputation) Neurological: Alert, Oriented, CN II-XII Intact, Normal Cognition, Normal Reflexes, No Motor/Sensory Deficits Psychiatric: Normal Affect, Normal Mood Skin Exam: Warm, Dry, Intact, Normal Color, No Rash Lymphatic: No Adenopathy Course - Vital Signs Last Recorded V/S: Last Vital Signs Temp 98.1 F 06/03/20 07:24 Pulse 103 H 06/03/20 07:24 Resp 18 06/03/20 07:24 BP 110/83 06/03/20 07:24 Pulse Ox 99 06/03/20 07:24 - Orders/Labs/Meds Orders: Active Orders 24 hr Category Date Time Status EKG 12 Lead [EKG Documentation Completion] [RC] STAT Care 06/03/20 07:26 Active Labs: Laboratory Tests 06/03/20 06/03/20 Range/Units 08:06 08:06 WBC 5.1 (5.0-10.0) 10^3/uL RBC 4.54 L (4.6-6.2) 10^6/uL Hgb 12.0 L (14.0-18.0) g/dL Hct 36.9 L (40.0-54.0) % MCV 81.3 (80-100) fL MCH 26.4 L (27.0-34.0) pg MCHC 32.5 L (33.0-35.0) g/dL Plt Count 247 (150-450) 10^3/uL Neut % (Auto) 62.4 (42.2-75.2) % Lymph % (Auto) 21.7 (20.5-50.1) % Brooke % (Auto) 11.6 H (2-8) % Eos % (Auto) 3.7 H (1.0-3.0) % Baso % (Auto) 0.6 (0.0-1.0) % Sodium 140 (136-145) mmol/L Potassium 3.9 (3.5-5.1) mmol/L Chloride 104 (98-107) mmol/L Carbon Dioxide 29 (21-32) mmol/L Anion Gap 10.9 (7-13) mEq/L BUN 22 H (7-18) mg/dL Creatinine 1.02 (0.70-1.30) mg/dL Est Cr Clr Drug Dosing 81.83 mL/min Estimated GFR (MDRD) > 60 BUN/Creatinine Ratio 21.6 (No establ ref range) Glucose 60 L (74-99) mg/dL Calcium 8.3 L (8.5-10.1) mg/dL Total Bilirubin 0.6 (0.2-1.0) mg/dL AST 15 (15-37) U/L ALT 22 (16-63) U/L Alkaline Phosphatase 202 H (46-116) U/L Troponin I 0.049 (0.000-0.056) ng/mL B-Natriuretic Peptide 964 H (0-100) pg/ml Total Protein 6.1 L (6.4-8.2) g/dL Albumin 2.5 L (3.4-5.0) g/dL Globulin 3.6 Albumin/Globulin Ratio 0.69 Departure - Departure Time of Disposition: 09:01 Disposition: Home, Self-Care 01 Condition: Good Clinical Impression: Constipation Qualifiers: Constipation type: unspecified constipation type Qualified Code(s): K59.00 - Constipation, unspecified Diabetes Qualifiers: Diabetes mellitus type: type 2 Diabetes mellitus termite exterminator helper insulin use: with termite exterminator helper use Diabetes mellitus complication status: without complication Qualified Code(s): E11.9 - Type 2 diabetes mellitus without complications; Z79.4 - rat exterminator (current) use of insulin CHF (congestive heart failure) Qualifiers: Heart failure type: systolic Heart failure chronicity: chronic Qualified Code(s): I50.22 - Chronic systolic (congestive) heart failure Instructions: Type 2 Diabetes Mellitus, Self Care, Adult, [id number], Constipation, Adult, [id number] Forms: ED Department Discharge Additional Instructions: Senokot 17.2 mg PO BID/PRN for constipation Unisom 50 mg PO QHS/PRN for sleep Call/return if symptoms change or worsen Follow up with Primary care provider in 3-5 days Sepsis Event Note (ED) - Evaluation Sepsis Screening Result: No Definite Risk - Focused Exam Vital Signs: Vital Signs Temp Pulse Resp BP Pulse Ox 06/03/20 07:24 98.1 F 103 H 18 110/83 99 - My Orders Last 24 Hours: My Active Orders 06/03/20 07:26 EKG 12 Lead [EKG Documentation Completion] [RC] STAT - Assessment/Plan Last 24 Hours: My Active Orders 06/03/20 07:26 EKG 12 Lead [EKG Documentation Completion] [RC] STAT
[2020-06-03 08:33] LABS: ANION GAP 10.9 mEq/L (7-13); CHLORIDE,CL 104 mmol/L (98-107); SODIUM,NA 140 mmol/L (136-145)
== END 2020-06-03 09:10 | disposition home or self-care (01) ==
LOC: DL.ED 07:02
DX: I11.0 Hypertensive heart disease with heart failure (principal); I50.22 Chronic systolic (congestive) heart failure; K59.00 Constipation, unspecified; E11.9 Type 2 diabetes mellitus without complications; E78.00 Pure hypercholesterolemia, unspecified; M19.90 Unspecified osteoarthritis, unspecified site; Z79.4 Long term (current) use of insulin; Z79.82 Long term (current) use of aspirin; Z79.899 Other long term (current) drug therapy
CPT/HCPCS: 36415; 80053; 83880; 84484; 85025; 93005; 99285-25

== ENCOUNTER 2020-06-16 23:58 | Emergency (ER) | payer MEDICAID ==
[2020-06-17 00:07] VITALS: BP 116/84; PULSE 104
[2020-06-17 00:48] LABS: ANION GAP 10.7 mEq/L (7-13); CHLORIDE,CL 105 mmol/L (98-107); SODIUM,NA 139 mmol/L (136-145)
--- NOTE | 2020-06-17 01:11 | CR ---
PROCEDURE INFORMATION: Exam: XR Chest, 1 View Exam date and time: 06/17/2020 12:57 AM Age: 55 years old Clinical indication: Shortness of breath; Additional info: Edema, SOB TECHNIQUE: Imaging protocol: XR of the chest Views: 1 view. COMPARISON: CR Chest 1V Frontal 05/10/2020 11:27 PM FINDINGS: Tubes, catheters and devices: A defibrillator is placed via the left subclavian vein. Lungs: Unremarkable. No consolidation. Pleural space: Unremarkable. No pleural effusion. No pneumothorax. Heart/Mediastinum: Cardiac profile is prominent. Bones/joints: Unremarkable. Other findings: There is some haziness seen in the lower hemithoraces. IMPRESSION: Cardiomegaly and haziness seen in the lower hemithoraces could represent mild pulmonary edema superimposed over the patient's chronic CHF.
[2020-06-17] MEDS ORDERED: Furosemide 40 MG/4 ML VIAL IVPUSH ONE (01:20)
--- NOTE | 2020-06-17 02:21 | EDM.PDOC ---
ED HPI GENERAL MEDICAL PROBLEM - General Chief Complaint: Cardiovascular Problem Stated Complaint: AMBULANCE Time Seen by Provider: 06/17/20 00:05 Source of Information: Reports: Patient, EMS History Limitations: Reports: No Limitations - History of Present Illness INITIAL COMMENTS - FREE TEXT/NARRATIVE: ED with c/o SOB increasing past 3 weeks. Feels worse lying down. Called [facility] r[facility]ology office today and told if he needed to be seen to go to ER. EMS report numerous calls to residence in past few weeks but usually refuses transport. Notes legs feel swollen has not been able to wear prosthesis. Stated he does miss some of his doses of medication. No cough, no fever, No nausea. No chest pain - Related Data Allergies Allergy/AdvReac Type Severity Reaction Status Date / Time No Known Allergies Allergy Verified 05/10/20 22:36 Home Meds: Home Meds Aspirin [Ecotrin] 81 mg PO DAILY 06/11/18 [History] Insulin Detemir [Levemir Flextouch] 27 units SQ BID 06/11/18 [History] Gabapentin [Neurontin] 300 mg PO TID 09/12/19 [History] Insulin Aspart [NovoLOG] 8 units SQ TID 09/12/19 [History] Cholecalciferol (Vitamin D3) [Vitamin D3] 1,000 unit PO DAILY 01/31/20 [History] DULoxetine [Cymbalta] 60 mg PO DAILY 01/31/20 [History] Levothyroxine 200 mcg PO DAILY 01/31/20 [History] Omeprazole 20 mg PO DAILY 01/31/20 [History] atorvaSTATin [Lipitor] 40 mg PO BEDTIME 01/31/20 [History] carvediloL [Carvedilol] 3.125 mg PO BID 01/31/20 [History] lisinopriL [Lisinopril] 2.5 mg PO DAILY 01/31/20 [History] metFORMIN [Glucophage XR] 500 mg PO BIDMEALS 01/31/20 [History] Past Medical History HEENT History: Reports: None Cardiovascular History: Reports: Heart Failure, High Cholesterol, Hypertension, Other (See Below) Other Cardiovascular History: CARDIAC PACEMAKER PLACED 03/2009. ISCHEMIC VASCULAR DISEASE. LV DYSFUNCTION Respiratory History: Reports: None Gastrointestinal History: Reports: None Genitourinary History: Reports: None Musculoskeletal History: Reports: Arthritis Neurological History: Reports: None Psychiatric History: Reports: None Endocrine/Metabolic History: Reports: Diabetes, Type II Hematologic History: Reports: None Immunologic History: Reports: None Oncologic (Cancer) History: Reports: None Dermatologic History: Reports: None - Infectious Disease History Infectious Disease History: Reports: None - Past Surgical History Head Surgeries/Procedures: Reports: None Cardiovascular Surgical History: Reports: Pacer Other Cardiovascular Surgeries/Procedures: PACEMAKER PLACED 03/2009 GI Surgical History: Reports: Colonoscopy Musculoskeletal Surgical History: Reports: Amputation Other Musculoskeletal Surgeries/Procedures:: Rt. below the knee amp. Social & Family History - Family History Family Medical History: No Pertinent Family History - Tobacco Use Tobacco Use Status *Q: Never Tobacco User Second Hand Smoke Exposure: No - Caffeine Use Caffeine Use: Reports: None - Recreational Drug Use Recreational Drug Use: No - Living Situation & Occupation Living situation: Reports: with Family Occupation: Disabled ED ROS GENERAL - Review of Systems Review Of Systems: Comprehensive ROS is negative, except as noted in HPI. ED EXAM, GENERAL - Physical Exam Exam: See Below Exam Limited By: No Limitations General Appearance: Alert, No Apparent Distress, Anxious Eye Exam: Bilateral Eye: EOMI Ears: Normal External Exam, Hearing Grossly Normal Nose: Normal Inspection Throat/Mouth: Normal Inspection Head: Atraumatic, Normocephalic Neck: Normal Inspection Respiratory/Chest: Rales (bilateral bases). No: Wheezing, Accessory Muscle Use, Retractions, Splinting Cardiovascular: Regular Rate, Rhythm. No: No Edema (2-3+ mid thigh) GI/Abdominal: Normal Bowel Sounds, Soft, Non-Tender Back Exam: Full Range of Motion Extremities: Other (BKA right) Neurological: Alert, Oriented, Normal Cognition Psychiatric: Normal Mood, Anxious Skin Exam: Warm, Dry, Intact, Normal Color Course - Vital Signs Last Recorded V/S: Last Vital Signs Temp 97.3 F 06/16/20 23:58 Pulse 104 H 06/16/20 23:58 Resp 24 H 06/16/20 23:58 BP 116/84 06/16/20 23:58 Pulse Ox 97 06/16/20 23:58 - Orders/Labs/Meds Labs: Laboratory Tests 06/17/20 06/17/20 06/17/20 Range/Units 00:20 00:20 00:20 WBC 5.2 (5.0-10.0) 10^3/uL RBC 4.76 (4.6-6.2) 10^6/uL Hgb 12.4 L (14.0-18.0) g/dL Hct 38.0 L (40.0-54.0) % MCV 79.8 L (80-100) fL MCH 26.1 L (27.0-34.0) pg MCHC 32.6 L (33.0-35.0) g/dL Plt Count 269 (150-450) 10^3/uL Neut % (Auto) 51.1 (42.2-75.2) % Lymph % (Auto) 35.9 (20.5-50.1) % [place] % (Auto) 8.0 (2-8) % Eos % (Auto) 4.6 H (1.0-3.0) % Baso % (Auto) 0.4 (0.0-1.0) % PT 11.1 (9.0-12.0) SEC INR 1.2 (0.9-1.2) Sodium 139 (136-145) mmol/L Potassium 3.7 (3.5-5.1) mmol/L Chloride 105 (98-107) mmol/L Carbon Dioxide 27 (21-32) mmol/L Anion Gap 10.7 (7-13) mEq/L BUN 22 H (7-18) mg/dL Creatinine 1.17 (0.70-1.30) mg/dL Est Cr Clr Drug Dosing 78.30 mL/min Estimated GFR (MDRD) > 60 BUN/Creatinine Ratio 18.8 (No establ ref range) Glucose 163 H (74-99) mg/dL Calcium 8.9 (8.5-10.1) mg/dL Total Bilirubin 0.7 (0.2-1.0) mg/dL AST 18 (15-37) U/L ALT 23 (16-63) U/L Alkaline Phosphatase 139 H (46-116) U/L Troponin I 0.051 (0.000-0.056) ng/mL B-Natriuretic Peptide 1190 H (0-100) pg/ml Total Protein 6.3 L (6.4-8.2) g/dL Albumin 3.0 L (3.4-5.0) g/dL Globulin 3.3 Albumin/Globulin Ratio 0.91 Meds: Medications Discontinued Medications Generic Name Dose Route Start Last Admin Trade Name Freq PRN Reason Stop Dose Admin Furosemide 40 mg 06/17/20 01:20 06/17/20 01:37 Lasix IVPUSH 06/17/20 01:21 40 mg NOW ONE Administration - Re-Assessments/Exams Free Text/Narrative Re-Assessment/Exam: 06/17/20 02:20 At present declines hospitalization, request to go home. 06/17/20 06:17 Departure - Departure Time of Disposition: 02:43 Disposition: Home, Self-Care 01 Condition: Fair Clinical Impression: Acute exacerbation of CHF (congestive heart failure) Qualifiers: Heart failure type: unspecified Qualified Code(s): I50.9 - Heart failure, unspecified Instructions: Shortness of Breath, Adult, [id number] Referrals: PCP,None [Primary Care Provider] - Forms: ED Department Discharge Additional Instructions: decrease fluid intake take home medications as prescribed clinic follow up on Friday, sooner if symptoms worsen Sepsis Event Note (ED) - Evaluation Sepsis Screening Result: No Definite Risk - Focused Exam Vital Signs: Vital Signs Temp Pulse Resp BP Pulse Ox 06/16/20 23:58 97.3 F 104 H 24 H 116/84 97
== END 2020-06-17 03:01 | disposition home or self-care (01) ==
LOC: DL.ED 23:58
DX: I11.0 Hypertensive heart disease with heart failure (principal); I50.9 Heart failure, unspecified; E78.00 Pure hypercholesterolemia, unspecified; M19.90 Unspecified osteoarthritis, unspecified site; E11.9 Type 2 diabetes mellitus without complications; Z89.511 Acquired absence of right leg below knee; Z79.82 Long term (current) use of aspirin; Z79.4 Long term (current) use of insulin; Z79.899 Other long term (current) drug therapy
CPT/HCPCS: 36415; 71045; 80053; 83880; 84484; 85025; 85610; 93005; 96374; 99285; J1940; 99283

== ENCOUNTER 2020-09-19 16:19 | Emergency (ER) | payer MEDICAID ==
[2020-09-19 16:24] VITALS: BP 107/77; PULSE 101
--- NOTE | 2020-09-19 16:45 | EDM.PDOC ---
<Josy Iraheta - Last Filed: 09/22/20 17:25> ED HPI GENERAL MEDICAL PROBLEM - General Chief Complaint: General Stated Complaint: AMBULANCE Time Seen by Provider: 09/19/20 16:30 Source of Information: Reports: Patient History Limitations: Reports: No Limitations - History of Present Illness INITIAL COMMENTS - FREE TEXT/NARRATIVE: 55 y.o. male who presents to the ED via ambulance at the request of [facility] due to a potassium level of 2.7 today. The patient had labs completed this morning and received a phone call from his PCP with his lab results and was instructed to seek medical care. He presented to the ED with mild dizziness and SOB which has been ongoing for the past 10 days, but the patient states it may be worse today. There are no aggraving or alleviating factors. Aside from this he offers no other acute concerns. He denies blurred vision, headache, chest pain, palpatations, abdominal pain or edema. Onset: Today - Related Data Allergies Allergy/AdvReac Type Severity Reaction Status Date / Time No Known Allergies Allergy Verified 09/19/20 16:26 Home Meds: Home Meds Aspirin [Ecotrin] 81 mg PO DAILY 06/11/18 [History] Insulin Detemir [Levemir Flextouch] 27 units SQ BID 06/11/18 [History] Gabapentin [Neurontin] 300 mg PO TID 09/12/19 [History] Insulin Aspart [NovoLOG] 8 units SQ TID 09/12/19 [History] Cholecalciferol (Vitamin D3) [Vitamin D3] 1,000 unit PO DAILY 01/31/20 [History] DULoxetine [Cymbalta] 60 mg PO DAILY 01/31/20 [History] Levothyroxine 200 mcg PO DAILY 01/31/20 [History] Omeprazole 20 mg PO DAILY 01/31/20 [History] atorvaSTATin [Lipitor] 40 mg PO BEDTIME 01/31/20 [History] carvediloL [Carvedilol] 3.125 mg PO BID 01/31/20 [History] lisinopriL [Lisinopril] 2.5 mg PO DAILY 01/31/20 [History] metFORMIN [Glucophage XR] 500 mg PO BIDMEALS 01/31/20 [History] Past Medical History HEENT History: Reports: None Cardiovascular History: Reports: Heart Failure, High Cholesterol, Hypertension, Other (See Below) Other Cardiovascular History: CARDIAC PACEMAKER PLACED 03/2009. ISCHEMIC VASCULAR DISEASE. LV DYSFUNCTION Respiratory History: Reports: None Gastrointestinal History: Reports: None Genitourinary History: Reports: None Musculoskeletal History: Reports: Arthritis Neurological History: Reports: None Psychiatric History: Reports: None Endocrine/Metabolic History: Reports: Diabetes, Type II Hematologic History: Reports: None Immunologic History: Reports: None Oncologic (Cancer) History: Reports: None Dermatologic History: Reports: None - Infectious Disease History Infectious Disease History: Reports: None - Past Surgical History Head Surgeries/Procedures: Reports: None Cardiovascular Surgical History: Reports: Pacer Other Cardiovascular Surgeries/Procedures: PACEMAKER PLACED 03/2009 GI Surgical History: Reports: Colonoscopy Musculoskeletal Surgical History: Reports: Amputation Other Musculoskeletal Surgeries/Procedures:: Rt. below the knee amp. Social & Family History - Family History Family Medical History: No Pertinent Family History - Tobacco Use Tobacco Use Status *Q: Never Tobacco User - Caffeine Use Caffeine Use: Reports: None - Recreational Drug Use Recreational Drug Use: No - Living Situation & Occupation Living situation: Reports: with Family Occupation: Disabled ED ROS GENERAL - Review of Systems Constitutional: Reports: No Symptoms HEENT: Reports: No Symptoms Respiratory: Reports: Shortness of Breath Cardiovascular: Reports: No Symptoms Endocrine: Reports: Fatigue GI/Abdominal: Reports: No Symptoms : Reports: No Symptoms Musculoskeletal: Reports: No Symptoms Skin: Reports: No Symptoms Neurological: Reports: Dizziness Psychiatric: Reports: No Symptoms Hematologic/Lymphatic: Reports: No Symptoms Immunologic: Reports: No Symptoms ED EXAM, GENERAL - Physical Exam Exam: See Below Exam Limited By: No Limitations General Appearance: Alert, No Apparent Distress Eye Exam: Bilateral Eye: PERRL Ears: Normal External Exam Nose: Normal Inspection Throat/Mouth: Normal Inspection Head: Atraumatic, Normocephalic Neck: Normal Inspection, Supple, Non-Tender Respiratory/Chest: Lungs Clear, Normal Breath Sounds, No Accessory Muscle Use Cardiovascular: Regular Rate, Rhythm, No Edema GI/Abdominal: Normal Bowel Sounds, Soft, Non-Tender, No Organomegaly, No Distention, No Abnormal Bruit, No Mass (Male) Exam: Deferred Rectal (Males) Exam: Deferred Extremities: Normal Inspection, No Pedal Edema Neurological: Alert, Oriented, CN II-XII Intact, Normal Cognition, Normal Gait, Normal Reflexes, No Motor/Sensory Deficits Psychiatric: Normal Affect, Normal Mood Skin Exam: Warm, Dry, Intact, Normal Color, No Rash Lymphatic: No Adenopathy Departure - Departure Disposition: Home, Self-Care 01 Clinical Impression: Hypokalemia - Discharge Information Referrals: PCP,None [Primary Care Provider] - Forms: ED Department Discharge Care Plan Goals: The patient was advised of the examination and lab results during the visit. The patient was given an IV dose of Potassium during the visit. The patient was encouraged to follow-up with his primary care facility tomorrow for a recheck of his potassium level. If the patient has any additional symptoms or concerns, the patient should either return to the emergency department or visit his primary care facility. Sepsis Event Note (ED) - Evaluation Sepsis Screening Result: No Definite Risk <Herman Leger - Last Filed: 09/22/20 20:05> ED ROS GENERAL - Review of Systems Review Of Systems: See Below Course - Vital Signs Last Recorded V/S: Last Vital Signs Temp 36.3 C 09/19/20 16:23 Pulse 101 H 09/19/20 16:23 Resp 24 H 09/19/20 16:23 BP 107/77 09/19/20 16:23 Pulse Ox 97 09/19/20 16:23 - Orders/Labs/Meds Labs: Laboratory Tests 09/19/20 09/19/20 Range/Units 16:58 16:58 WBC 7.5 (5.0-10.0) 10^3/uL RBC 6.18 (4.6-6.2) 10^6/uL Hgb 15.3 D (14.0-18.0) g/dL Hct 43.8 (40.0-54.0) % MCV 70.9 L D (80-100) fL MCH 24.8 L (27.0-34.0) pg MCHC 34.9 (33.0-35.0) g/dL Plt Count 208 (150-450) 10^3/uL Neut % (Auto) 70.2 (42.2-75.2) % Lymph % (Auto) 19.7 L (20.5-50.1) % [place] % (Auto) 8.0 (2-8) % Eos % (Auto) 1.6 (1.0-3.0) % Baso % (Auto) 0.5 (0.0-1.0) % Sodium 133 L (136-145) mmol/L Potassium 2.9 L (3.5-5.1) mmol/L Chloride 86 L D (98-107) mmol/L Carbon Dioxide 39 H D (21-32) mmol/L Anion Gap 10.9 (7-13) mEq/L BUN 50 H D (7-18) mg/dL Creatinine 1.68 H (0.70-1.30) mg/dL Est Cr Clr Drug Dosing 54.53 mL/min Estimated GFR (MDRD) 43 BUN/Creatinine Ratio 29.8 (No establ ref range) Glucose 270 H (74-99) mg/dL Calcium 9.2 (8.5-10.1) mg/dL Total Bilirubin 0.5 (0.2-1.0) mg/dL AST 34 (15-37) U/L ALT 41 (16-63) U/L Alkaline Phosphatase 208 H (46-116) U/L Total Protein 8.0 (6.4-8.2) g/dL Albumin 3.4 (3.4-5.0) g/dL Globulin 4.6 Albumin/Globulin Ratio 0.7 Meds: Medications Discontinued Medications Generic Name Dose Route Start Last Admin Trade Name Freq PRN Reason Stop Dose Admin Potassium Chloride 10 meq/ 100 mls @ 100 mls/hr 09/19/20 17:54 09/19/20 18:00 Premix IV 09/19/20 18:53 100 mls/hr ONETIME ONE Administration - Re-Assessments/Exams Free Text/Narrative Re-Assessment/Exam: 09/22/20 20:04 I have examined the patient. I have discussed findings and treatment plan with the PA student. I agree with the assessment and plan in the following students note. Departure - Departure Time of Disposition: 18:57 Condition: Fair - Discharge Information *PRESCRIPTION DRUG MONITORING PROGRAM REVIEWED*: Not Applicable *COPY OF PRESCRIPTION DRUG MONITORING REPORT IN PATIENT ALISA: Not Applicable
[2020-09-19 17:27] LABS: ANION GAP 10.9 mEq/L (7-13)
[2020-09-19] MEDS ORDERED: Potassium Chloride 10 MEQ in Premix Bag 1 BAG IV ONE (17:54)
== END 2020-09-19 19:16 | disposition home or self-care (01) ==
LOC: DL.ED 16:19
DX: E87.6 Hypokalemia (principal); I11.0 Hypertensive heart disease with heart failure; I50.9 Heart failure, unspecified; E78.00 Pure hypercholesterolemia, unspecified; E11.9 Type 2 diabetes mellitus without complications; Z79.4 Long term (current) use of insulin; Z79.82 Long term (current) use of aspirin; M19.90 Unspecified osteoarthritis, unspecified site; Z79.899 Other long term (current) drug therapy
CPT/HCPCS: 36415; 80053; 85025; 96365; 99284; 99285; J3480

== ENCOUNTER 2021-01-29 01:08 | Emergency (ER) | payer MEDICAID ==
[2021-01-29 01:22] VITALS: PULSE 88
[2021-01-29 01:36] VITALS: BP 100/81
[2021-01-29 01:59] LABS: ANION GAP 14.1 mEq/L (7-13)
--- NOTE | 2021-01-29 02:01 | EDM.PDOC ---
ED HPI GENERAL MEDICAL PROBLEM - General Chief Complaint: General Stated Complaint: AMBULANCE Time Seen by Provider: 01/29/21 01:16 Source of Information: Reports: Patient, RN History Limitations: Reports: No Limitations - History of Present Illness INITIAL COMMENTS - FREE TEXT/NARRATIVE: 55 year old male who presents to the ER via EMS with complaints of "not feeling right". Patient reports he was discharged from [facility] less than 24 hours ago after a stent placement. At home, he felt short of breath when he laid down to sleep. Patient states he felt like he was choking and "something was not right" so he called the ambulance. He had taken his evening medications which included his diuretics.Patient denies any fevers, chills, chest pain palpitations but admits to lower extremity edema. - Related Data Allergies Allergy/AdvReac Type Severity Reaction Status Date / Time No Known Allergies Allergy Verified 09/19/20 16:26 Home Meds: Home Meds Aspirin [Ecotrin] 81 mg PO DAILY 06/11/18 [History] Insulin Detemir [Levemir Flextouch] 27 units SQ BID 06/11/18 [History] Gabapentin [Neurontin] 300 mg PO TID 09/12/19 [History] Insulin Aspart [NovoLOG] 8 units SQ TID 09/12/19 [History] Cholecalciferol (Vitamin D3) [Vitamin D3] 1,000 unit PO DAILY 01/31/20 [History] Levothyroxine 200 mcg PO DAILY 01/31/20 [History] Omeprazole 20 mg PO DAILY 01/31/20 [History] atorvaSTATin [Lipitor] 40 mg PO BEDTIME 01/31/20 [History] carvediloL [Carvedilol] 3.125 mg PO BID 01/31/20 [History] metFORMIN [Glucophage XR] 500 mg PO BIDMEALS 01/31/20 [History] Nitroglycerin 0.4 mg SL ASDIRECTED PRN 01/29/21 [History] Potassium Chloride 20 meq PO BID 01/29/21 [History] Torsemide 60 mg PO BID 01/29/21 [History] metOLazone [Metolazone] 5 mg PO BID 01/29/21 [History] Past Medical History HEENT History: Reports: None Cardiovascular History: Reports: Heart Failure, High Cholesterol, Hypertension, Other (See Below) Other Cardiovascular History: CARDIAC PACEMAKER PLACED 03/2009. ISCHEMIC VASCULAR DISEASE. LV DYSFUNCTION Respiratory History: Reports: None Gastrointestinal History: Reports: None Genitourinary History: Reports: None Musculoskeletal History: Reports: Arthritis Neurological History: Reports: None Psychiatric History: Reports: None Endocrine/Metabolic History: Reports: Diabetes, Type II Hematologic History: Reports: None Immunologic History: Reports: None Oncologic (Cancer) History: Reports: None Dermatologic History: Reports: None - Infectious Disease History Infectious Disease History: Reports: None - Past Surgical History Head Surgeries/Procedures: Reports: None Cardiovascular Surgical History: Reports: Coronary Artery Stent, Pacer Other Cardiovascular Surgeries/Procedures: PACEMAKER PLACED 03/2009 GI Surgical History: Reports: Colonoscopy Musculoskeletal Surgical History: Reports: Amputation Other Musculoskeletal Surgeries/Procedures:: Rt. below the knee amp. Social & Family History - Family History Family Medical History: No Pertinent Family History - Tobacco Use Tobacco Use Status *Q: Never Tobacco User Second Hand Smoke Exposure: No - Caffeine Use Caffeine Use: Reports: None - Recreational Drug Use Recreational Drug Use: No - Living Situation & Occupation Living situation: Reports: with Family Occupation: Disabled ED ROS GENERAL - Review of Systems Review Of Systems: Comprehensive ROS is negative, except as noted in HPI. ED EXAM, GENERAL - Physical Exam Exam: See Below Exam Limited By: No Limitations General Appearance: Alert, Mild Distress Eye Exam: Bilateral Eye: PERRL Ears: Normal External Exam, Normal Canal, Hearing Grossly Normal, Normal TMs Nose: Normal Inspection, Normal Mucosa, No Blood Throat/Mouth: Normal Inspection, Normal Oropharynx, Normal Voice, No Airway Compromise Neck: Normal Inspection, Non-Tender Respiratory/Chest: No Respiratory Distress, Lungs Clear, Normal Breath Sounds, Chest Non-Tender. No: No Accessory Muscle Use Cardiovascular: Normal Peripheral Pulses, Regular Rate, Rhythm, No Gallop, No Murmur Peripheral Pulses: 2+: Posterior Tibial (R), Dorsalis Pedis (L), Dorsalis Pedis (R) (Male) Exam: Deferred Rectal (Males) Exam: Deferred Extremities: Pedal Edema (3 + pittting edema to the LLE and RBKA) Neurological: Alert, Oriented, Normal Cognition, No Motor/Sensory Deficits Psychiatric: Anxious, Flat Affect Skin Exam: Warm, Intact Lymphatic: No Adenopathy #1 Interpretation EKG Date: 01/29/21 Time: 01:36 Rhythm: Other (Sinus rhythm with prolonged TN interval and prolonged QT interval) Course - Vital Signs Last Recorded V/S: Last Vital Signs Temp 96.9 F 01/29/21 01:12 Pulse 88 01/29/21 01:12 Resp 18 01/29/21 01:12 BP 100/81 01/29/21 01:35 Pulse Ox 98 01/29/21 01:12 - Orders/Labs/Meds Orders: Active Orders 24 hr Category Date Time Status EKG 12 Lead [EKG Documentation Completion] [RC] URGENT Care 01/29/21 01:16 Ordered Chest 2V [CR] Stat Exams 01/29/21 01:15 Ordered B-TYPE NATRIURETIC PEPTIDE,BNP [CHEM] Stat Lab 01/29/21 01:35 Received CMP [COMPREHENSIVE METABOLIC PN,CMP] [CHEM] Stat Lab 01/29/21 01:15 Ordered DRUG SCREEN URINE BIORAD [URCHEM] Stat Lab 01/29/21 01:16 Ordered TROPONIN I HIGH SENSITIVITY [CHEM] Stat Lab 01/29/21 01:17 Ordered UA W/HERMES RFLX IF INDICATED [URIN] Stat Lab 01/29/21 01:16 Ordered Labs: Laboratory Tests 01/29/21 Range/Units 01:35 WBC 5.2 (5.0-10.0) 10^3/uL RBC 4.28 L (4.6-6.2) 10^6/uL Hgb 10.5 L D (14.0-18.0) g/dL Hct 32.9 L (40.0-54.0) % MCV 76.9 L D (80-100) fL MCH 24.5 L (27.0-34.0) pg MCHC 31.9 L (33.0-35.0) g/dL Plt Count 246 (150-450) 10^3/uL Neut % (Auto) 60.0 (42.2-75.2) % Lymph % (Auto) 21.6 (20.5-50.1) % [place] % (Auto) 15.1 H (2-8) % Eos % (Auto) 2.5 (1.0-3.0) % Baso % (Auto) 0.8 (0.0-1.0) % - Re-Assessments/Exams Free Text/Narrative Re-Assessment/Exam: Reviewed Exam findings, EKG, chest xray and lab results with patient. Consulted cardiology at [facility] Dr. Hardy who states that the EKG and Troponin is as expected. He recommended Lasix 20 mg IV and patient should be discharged to follow up with cardiology outpatient. Encouraged patient to elevate his feet when laying or sitting down. Continue taking diuretics and medications as prescribed. Follow-up with cardiology as scheduled. Patient verbalized understanding. Departure - Departure Time of Disposition: 02:56 Disposition: Home, Self-Care 01 Condition: Fair Clinical Impression: CHF, Congestive heart failure, Status post arterial stent - Discharge Information Instructions: Heart Failure, Self Care, [id number] Forms: ED Department Discharge Additional Instructions: Encouraged patient to elevate his feet when laying or sitting down. Continue taking diuretics and medications as prescribed. Follow-up with cardiology as scheduled. Patient verbalized understanding. Sepsis Event Note (ED) - Evaluation Sepsis Screening Result: No Definite Risk - Focused Exam Vital Signs: Vital Signs Temp Pulse Resp BP BP Pulse Ox 01/29/21 01:35 100/81 01/29/21 01:12 96.9 F 88 18 86/69 L 98 - My Orders Last 24 Hours: My Active Orders 01/29/21 01:15 Chest 2V [CR] Stat CMP [COMPREHENSIVE METABOLIC PN,CMP] [CHEM] Stat 01/29/21 01:16 EKG 12 Lead [EKG Documentation Completion] [RC] URGENT DRUG SCREEN URINE BIORAD [URCHEM] Stat UA W/HERMES RFLX IF INDICATED [URIN] Stat 01/29/21 01:17 TROPONIN I HIGH SENSITIVITY [CHEM] Stat 01/29/21 01:35 B-TYPE NATRIURETIC PEPTIDE,BNP [CHEM] Stat - Assessment/Plan Last 24 Hours: My Active Orders 01/29/21 01:15 Chest 2V [CR] Stat CMP [COMPREHENSIVE METABOLIC PN,CMP] [CHEM] Stat 01/29/21 01:16 EKG 12 Lead [EKG Documentation Completion] [RC] URGENT DRUG SCREEN URINE BIORAD [URCHEM] Stat UA W/HERMES RFLX IF INDICATED [URIN] Stat 01/29/21 01:17 TROPONIN I HIGH SENSITIVITY [CHEM] Stat 01/29/21 01:35 B-TYPE NATRIURETIC PEPTIDE,BNP [CHEM] Stat
[2021-01-29] MEDS ORDERED: Furosemide 20 MG/2 ML VIAL IVPUSH ONE (02:46)
--- NOTE | 2021-01-29 02:48 | CR ---
PROCEDURE INFORMATION: Exam: XR Chest Exam date and time: 01/29/2021 1:46 AM Age: 55 years old Clinical indication: Other: Chest pain; Additional info: Post cardiac surgery TECHNIQUE: Imaging protocol: XR of the chest. Views: 1 view. COMPARISON: CR Chest 1V Frontal 06/17/2020 12:57 AM FINDINGS: Tubes, catheters and devices: Left AICD with leads overlying the right atrium and ventricle. Lungs: Unremarkable. No consolidation. Pleural spaces: Unremarkable. No pleural effusion. No pneumothorax. Heart/Mediastinum: There is mild cardiomegaly. Bones/joints: Unremarkable. IMPRESSION: Mild cardiomegaly.
== END 2021-01-29 03:49 | disposition home or self-care (01) ==
LOC: DL.ED 01:08
DX: I11.0 Hypertensive heart disease with heart failure (principal); I50.9 Heart failure, unspecified; E78.00 Pure hypercholesterolemia, unspecified; E11.9 Type 2 diabetes mellitus without complications; M19.90 Unspecified osteoarthritis, unspecified site; I45.81 Long QT syndrome; Z79.82 Long term (current) use of aspirin; Z79.4 Long term (current) use of insulin; Z79.899 Other long term (current) drug therapy
CPT/HCPCS: 36415; 71045; 80053; 83880; 84484; 85025; 93005; 96374; 99284; 99285-25; J1940

== ENCOUNTER 2021-03-15 21:33 | Emergency (ER) | payer MEDICAID ==
[2021-03-15 21:42] VITALS: BP 93/75; PULSE 84
[2021-03-15] MEDS ORDERED: 50% Dextrose in Water 50 ML Syringe IVPUSH ONE (21:52)
[2021-03-15] MEDS ORDERED: Lactated Ringers 1,000 ML IV ONE (22:49)
[2021-03-16] MEDS ORDERED: 50% Dextrose in Water 50 ML Syringe IVPUSH ONE (00:18)
[2021-03-16 00:23] LABS: ANION GAP 11.2 mEq/L (7-13)
[2021-03-16] MEDS ORDERED: Dextrose 5%-0.45% NaCl 1,000 ML IV SCH (00:30)
--- NOTE | 2021-03-16 01:52 | EDM.PDOC ---
ED HPI GENERAL MEDICAL PROBLEM - General Chief Complaint: General Stated Complaint: BY [facility] Time Seen by Provider: 03/15/21 22:00 Source of Information: Reports: Patient, EMS, EMS Notes Reviewed, RN, RN Notes Reviewed History Limitations: Reports: No Limitations - History of Present Illness INITIAL COMMENTS - FREE TEXT/NARRATIVE: Patient is a 55-year-old male who presents to ER per [facility] with complaint of hypoglycemia. Patient states he has been feeling low as in blood sugars lately. States today he did take his long-acting and short acting insulin without eating. Patient states he has had a cold recently but denies any further health problems. Denies any fever, chills, nausea, vomiting, chest pains, shortness of breath. Patient does deny any open or infected wounds or ulcers. He does have 2 clean scabbed areas on the left leg. 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 Patient given D5 NS in route to ER as they did not have amps of D50 per [employer] consultant. Onset: Today, Sudden - Related Data Allergies Allergy/AdvReac Type Severity Reaction Status Date / Time No Known Allergies Allergy Verified 03/15/21 21:44 Home Meds: Home Meds Aspirin [Ecotrin] 81 mg PO DAILY 06/11/18 [History] Insulin Detemir [Levemir Flextouch] 27 units SQ BID 06/11/18 [History] Gabapentin [Neurontin] 400 mg PO DAILY 09/12/19 [History] Insulin Aspart [NovoLOG] 8 units SQ TID 09/12/19 [History] Cholecalciferol (Vitamin D3) [Vitamin D3] 1,000 unit PO DAILY 01/31/20 [History] Levothyroxine 112 mcg PO DAILY 01/31/20 [History] Omeprazole 20 mg PO DAILY 01/31/20 [History] atorvaSTATin [Lipitor] 40 mg PO BEDTIME 01/31/20 [History] carvediloL [Carvedilol] 6.25 mg PO BID 01/31/20 [History] metFORMIN [Glucophage XR] 500 mg PO BIDMEALS 01/31/20 [History] Nitroglycerin 0.4 mg SL ASDIRECTED PRN 01/29/21 [History] Potassium Chloride 20 meq PO BID 01/29/21 [History] Torsemide 60 mg PO BID 01/29/21 [History] metOLazone [Metolazone] 5 mg PO BID 01/29/21 [History] Past Medical History HEENT History: Reports: None Cardiovascular History: Reports: Heart Failure, High Cholesterol, Hypertension, Other (See Below) Other Cardiovascular History: CARDIAC PACEMAKER PLACED 03/2009. ISCHEMIC VASCULAR DISEASE. LV DYSFUNCTION Respiratory History: Reports: None Gastrointestinal History: Reports: None Genitourinary History: Reports: None Musculoskeletal History: Reports: Arthritis Neurological History: Reports: None Psychiatric History: Reports: None Endocrine/Metabolic History: Reports: Diabetes, Type II Hematologic History: Reports: None Immunologic History: Reports: None Oncologic (Cancer) History: Reports: None Dermatologic History: Reports: None - Infectious Disease History Infectious Disease History: Reports: None - Past Surgical History Head Surgeries/Procedures: Reports: None Cardiovascular Surgical History: Reports: Coronary Artery Stent, Pacer Other Cardiovascular Surgeries/Procedures: PACEMAKER PLACED 03/2009 GI Surgical History: Reports: Colonoscopy Musculoskeletal Surgical History: Reports: Amputation Other Musculoskeletal Surgeries/Procedures:: Rt. below the knee amp. Social & Family History - Family History Family Medical History: No Pertinent Family History - Tobacco Use Tobacco Use Status *Q: Never Tobacco User Second Hand Smoke Exposure: No - Caffeine Use Caffeine Use: Reports: Coffee, Soda, Tea, Other - Recreational Drug Use Recreational Drug Use: No - Living Situation & Occupation Living situation: Reports: with Family Occupation: Disabled ED ROS GENERAL - Review of Systems Review Of Systems: Comprehensive ROS is negative, except as noted in HPI. ED EXAM, GENERAL - Physical Exam Exam: See Below Exam Limited By: No Limitations General Appearance: Alert, WD/WN, No Apparent Distress Eye Exam: Bilateral Eye: EOMI, Normal Inspection Ears: Normal External Exam, Hearing Grossly Normal Nose: Normal Inspection Throat/Mouth: Normal Inspection, Normal Voice, No Airway Compromise Head: Atraumatic, Normocephalic Neck: Normal Inspection, Supple, Non-Tender, Full Range of Motion Respiratory/Chest: No Respiratory Distress, Decreased Breath Sounds, Crackles (bases bilaterally) Cardiovascular: Normal Peripheral Pulses, Regular Rate, Rhythm, No Edema, No Gallop, No JVD, No Murmur, No Rub Peripheral Pulses: 2+: Radial (L), Radial (R) GI/Abdominal: Normal Bowel Sounds, Soft, Non-Tender (Male) Exam: Deferred Rectal (Males) Exam: Deferred Back Exam: Normal Inspection, Full Range of Motion Extremities: Normal Inspection, Other (R BKA) Neurological: Alert, Oriented, Normal Cognition, No Motor/Sensory Deficits Psychiatric: Normal Affect, Normal Mood Skin Exam: Warm, Dry, Intact, Normal Color, No Rash Lymphatic: No Adenopathy Course - Vital Signs Last Recorded V/S: Last Vital Signs Temp 96.4 F L 03/15/21 21:34 Pulse 84 03/15/21 21:34 Resp 16 03/15/21 21:34 BP 93/75 03/15/21 21:34 Pulse Ox 95 03/15/21 21:34 - Orders/Labs/Meds Orders: Active Orders 24 hr Category Date Time Status Blood Glucose Check, Bedside [RC] ONETIME Care 03/16/21 00:13 Active CULTURE BLOOD [BC] Stat Lab 03/15/21 23:52 Received CULTURE BLOOD [BC] Stat Lab 03/15/21 23:52 Received REFLEX LACTIC ACID YES OR NO [CHEM] Routine Lab 03/16/21 01:08 Received Dextrose 5%-0.45% NaCl [Dextrose 5%-1/2 NS] 1,000 ml Med 03/16/21 00:30 Active IV ASDIRECTED Blood Culture x2 Reflex Set [OM.PC] Stat Oth 03/15/21 23:52 Ordered Medication Orders Dextrose/Sodium Chloride (Dextrose 5%-1/2 Ns) 1,000 mls @ 150 mls/hr IV ASDIRECTED [facility] Last Admin: 03/16/21 00:24 Dose: 150 mls/hr Documented by: DANIEL Labs: Laboratory Tests 03/15/21 03/15/21 03/15/21 Range/Units 21:48 22:26 22:53 WBC (5.0-10.0) 10^3/uL RBC (4.6-6.2) 10^6/uL Hgb (14.0-18.0) g/dL Hct (40.0-54.0) % MCV (80-100) fL MCH (27.0-34.0) pg MCHC (33.0-35.0) g/dL Plt Count (150-450) 10^3/uL Neut % (Auto) (42.2-75.2) % Lymph % (Auto) (20.5-50.1) % [place] % (Auto) (2-8) % Eos % (Auto) (1.0-3.0) % Baso % (Auto) (0.0-1.0) % Add Manual Diff Neutrophils % (Manual) (42-75) % Band Neutrophils % % Lymphocytes % (Manual) (20-50) % Monocytes % (Manual) (2-8) % Eosinophils % (Manual) (1-3) % Basophils % (Manual) Nucleated RBCs /100WBC Hypochromasia Poikilocytosis Anisocytosis Microcytosis Target Cells Sodium (136-145) mmol/L Potassium (3.5-5.1) mmol/L Chloride (98-107) mmol/L Carbon Dioxide (21-32) mmol/L Anion Gap (7-13) mEq/L BUN (7-18) mg/dL Creatinine (0.70-1.30) mg/dL Est Cr Clr Drug Dosing mL/min Estimated GFR (MDRD) BUN/Creatinine Ratio (No establ ref range) Glucose (70-99) mg/dL POC Glucose 73 135 H 106 H (70-99) mg/dL Lactic Acid (0.4-2.0) mmol/L Calcium (8.5-10.1) mg/dL Total Bilirubin (0.2-1.0) mg/dL AST (15-37) U/L ALT (16-63) U/L Alkaline Phosphatase (46-116) U/L Total Protein (6.4-8.2) g/dL Albumin (3.4-5.0) g/dL Globulin Albumin/Globulin Ratio 03/15/21 03/15/21 03/16/21 Range/Units 23:58 23:58 00:17 WBC 10.3 H (5.0-10.0) 10^3/uL RBC 4.78 (4.6-6.2) 10^6/uL Hgb 10.6 L (14.0-18.0) g/dL Hct 33.7 L (40.0-54.0) % MCV 70.5 L D (80-100) fL MCH 22.2 L (27.0-34.0) pg MCHC 31.5 L (33.0-35.0) g/dL Plt Count 197 (150-450) 10^3/uL Neut % (Auto) 80.9 H (42.2-75.2) % Lymph % (Auto) 9.7 L (20.5-50.1) % [place] % (Auto) 7.5 (2-8) % Eos % (Auto) 1.3 (1.0-3.0) % Baso % (Auto) 0.6 (0.0-1.0) % Add Manual Diff Yes Neutrophils % (Manual) 79 H (42-75) % Band Neutrophils % 9 % Lymphocytes % (Manual) 7 L (20-50) % Monocytes % (Manual) 3 (2-8) % Eosinophils % (Manual) 1 (1-3) % Basophils % (Manual) 1 Nucleated RBCs 3 /100WBC Hypochromasia 2+ moderate Poikilocytosis 1+ slight Anisocytosis 3+ marked Microcytosis 2+ moderate Target Cells 1+ slight Sodium 135 L (136-145) mmol/L Potassium 4.2 (3.5-5.1) mmol/L Chloride 98 (98-107) mmol/L Carbon Dioxide 30 (21-32) mmol/L Anion Gap 11.2 (7-13) mEq/L BUN 49 H (7-18) mg/dL Creatinine 1.45 H D (0.70-1.30) mg/dL Est Cr Clr Drug Dosing 63.18 mL/min Estimated GFR (MDRD) 51 BUN/Creatinine Ratio 33.8 (No establ ref range) Glucose 63 L (70-99) mg/dL POC Glucose 76 (70-99) mg/dL Lactic Acid (0.4-2.0) mmol/L Calcium 8.1 L (8.5-10.1) mg/dL Total Bilirubin 1.6 H (0.2-1.0) mg/dL AST 53 H (15-37) U/L ALT 34 (16-63) U/L Alkaline Phosphatase 153 H (46-116) U/L Total Protein 6.4 (6.4-8.2) g/dL Albumin 2.3 L (3.4-5.0) g/dL Globulin 4.1 Albumin/Globulin Ratio 0.56 03/16/21 03/16/21 03/16/21 Range/Units 00:19 00:56 01:41 WBC (5.0-10.0) 10^3/uL RBC (4.6-6.2) 10^6/uL Hgb (14.0-18.0) g/dL Hct (40.0-54.0) % MCV (80-100) fL MCH (27.0-34.0) pg MCHC (33.0-35.0) g/dL Plt Count (150-450) 10^3/uL Neut % (Auto) (42.2-75.2) % Lymph % (Auto) (20.5-50.1) % [place] % (Auto) (2-8) % Eos % (Auto) (1.0-3.0) % Baso % (Auto) (0.0-1.0) % Add Manual Diff Neutrophils % (Manual) (42-75) % Band Neutrophils % % Lymphocytes % (Manual) (20-50) % Monocytes % (Manual) (2-8) % Eosinophils % (Manual) (1-3) % Basophils % (Manual) Nucleated RBCs /100WBC Hypochromasia Poikilocytosis Anisocytosis Microcytosis Target Cells Sodium (136-145) mmol/L Potassium (3.5-5.1) mmol/L Chloride (98-107) mmol/L Carbon Dioxide (21-32) mmol/L Anion Gap (7-13) mEq/L BUN (7-18) mg/dL Creatinine (0.70-1.30) mg/dL Est Cr Clr Drug Dosing mL/min Estimated GFR (MDRD) BUN/Creatinine Ratio (No establ ref range) Glucose (70-99) mg/dL POC Glucose 203 H 185 H (70-99) mg/dL Lactic Acid 2.2 H* (0.4-2.0) mmol/L Calcium (8.5-10.1) mg/dL Total Bilirubin (0.2-1.0) mg/dL AST (15-37) U/L ALT (16-63) U/L Alkaline Phosphatase (46-116) U/L Total Protein (6.4-8.2) g/dL Albumin (3.4-5.0) g/dL Globulin Albumin/Globulin Ratio Meds: Medications Generic Name Dose Route Start Last Admin Trade Name Freq PRN Reason Stop Dose Admin Dextrose/Sodium Chloride 1,000 mls @ 150 mls/hr 03/16/21 00:30 03/16/21 00:24 Dextrose 5%-1/2 Ns IV 150 mls/hr ASDIRECTED JESUS ALBERTO Administration Discontinued Medications Generic Name Dose Route Start Last Admin Trade Name Jodie DE LEON Reason Stop Dose Admin Dextrose/Water 50 ml 03/15/21 21:52 03/15/21 21:57 50% Dextrose In Water 50 Ml Syringe IVPUSH 03/15/21 21:53 50 ml ONETIME ONE Administration Dextrose/Water 50 ml 03/16/21 00:18 03/16/21 00:26 50% Dextrose In Water 50 Ml Syringe IVPUSH 03/16/21 00:19 50 ml ONETIME ONE Administration Lactated Ringer's 1,000 mls @ 999 mls/hr 03/15/21 22:49 03/15/21 22:53 Ringers, Lactated IV 03/15/21 23:49 999 mls/hr .BOLUS ONE Administration - Re-Assessments/Exams Free Text/Narrative Re-Assessment/Exam: 03/16/21 01:55 Patient states feeling better, just tired. Departure - Departure Time of Disposition: 02:15 Disposition: Home, Self-Care 01 Condition: Good Clinical Impression: Hypoglycemia, Hx of right BKA - Discharge Information *PRESCRIPTION DRUG MONITORING PROGRAM REVIEWED*: No *COPY OF PRESCRIPTION DRUG MONITORING REPORT IN PATIENT ALISA: No Instructions: Preventing Hypoglycemia, Hypoglycemia, [id number] Forms: ED Department Discharge Additional Instructions: Make sure to eat food with insulin Follow up with your primary care facility Return to the ER with any worsening of symptoms Sepsis Event Note (ED) - Evaluation Sepsis Screening Result: No Definite Risk - Focused Exam Vital Signs: Vital Signs Temp Pulse Resp BP Pulse Ox 03/15/21 21:34 96.4 F L 84 16 93/75 95 - My Orders Last 24 Hours: My Active Orders 03/15/21 23:52 CULTURE BLOOD [BC] Stat CULTURE BLOOD [BC] Stat Blood Culture x2 Reflex Set [OM.PC] Stat 03/16/21 00:13 Blood Glucose Check, Bedside [RC] ONETIME 03/16/21 00:30 Dextrose 5%-0.45% NaCl [Dextrose 5%-1/2 NS] 1,000 ml IV ASDIRECTED 03/16/21 01:08 REFLEX LACTIC ACID YES OR NO [CHEM] Routine - Assessment/Plan Last 24 Hours: My Active Orders 03/15/21 23:52 CULTURE BLOOD [BC] Stat CULTURE BLOOD [BC] Stat Blood Culture x2 Reflex Set [OM.PC] Stat 03/16/21 00:13 Blood Glucose Check, Bedside [RC] ONETIME 03/16/21 00:30 Dextrose 5%-0.45% NaCl [Dextrose 5%-1/2 NS] 1,000 ml IV ASDIRECTED 03/16/21 01:08 REFLEX LACTIC ACID YES OR NO [CHEM] Routine
== END 2021-03-16 02:22 | disposition home or self-care (01) ==
LOC: DL.ED 21:33
DX: E11.649 Type 2 diabetes mellitus with hypoglycemia without coma (principal); I11.0 Hypertensive heart disease with heart failure; I50.9 Heart failure, unspecified; E78.00 Pure hypercholesterolemia, unspecified; M19.90 Unspecified osteoarthritis, unspecified site; Z89.511 Acquired absence of right leg below knee; Z79.82 Long term (current) use of aspirin; Z79.4 Long term (current) use of insulin; Z79.899 Other long term (current) drug therapy
CPT/HCPCS: 36415; 80053; 82947; 83605; 85025; 87040; 99285; J7042; J7120

== ENCOUNTER 2021-06-23 08:30 | Inpatient (IN) | payer MEDICAID ==
[2021-06-23 09:21] LABS: ANION GAP 10.9 mEq/L (7-13); CHLORIDE,CL 90 mmol/L (98-107); SODIUM,NA 129 mmol/L (136-145)
[2021-06-23] MEDS: Sodium Chloride 0.9% 10 ML Syringe FLUSH PRN ×2 (09:37→12:49)
[2021-06-23] MEDS ORDERED: Potassium Chloride 10 MEQ Tab.ER PO ONE (10:10)
--- NOTE | 2021-06-23 10:14 | EDM.PDOC ---
ED HPI GENERAL MEDICAL PROBLEM - General Chief Complaint: Respiratory Problem Stated Complaint: AMBULANCE Time Seen by Provider: 06/23/21 09:00 Source of Information: Reports: Patient History Limitations: Reports: No Limitations - History of Present Illness INITIAL COMMENTS - FREE TEXT/NARRATIVE: 56 y/o M c/o SOB x 2-3 days. Pt states he has had increased sob with exertion and feels like he is fluid overloaded again. Hx of type II diabetes, CAD, CHF. Is scheduled for a heart cath on Friday at [facility] [place] for DR. Byrne. Hx of 7 stents placed within the last year. Is on plavix for CAD. Denies fever, cough, chills, CP, neck pn, abd pn, pelvic pn, difficulty voiding. 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 - Related Data Allergies Allergy/AdvReac Type Severity Reaction Status Date / Time No Known Allergies Allergy Verified 06/23/21 11:17 Home Meds: Home Meds Aspirin [Ecotrin] 81 mg PO DAILY 06/11/18 [History] Insulin Detemir [Levemir Flextouch] 27 units SQ BID 06/11/18 [History] Gabapentin [Neurontin] 400 mg PO DAILY 09/12/19 [History] Insulin Aspart [NovoLOG] 8 units SQ TID 09/12/19 [History] Levothyroxine 112 mcg PO DAILY 01/31/20 [History] Omeprazole 20 mg PO DAILY 01/31/20 [History] atorvaSTATin [Lipitor] 40 mg PO BEDTIME 01/31/20 [History] carvediloL [Carvedilol] 6.25 mg PO BID 01/31/20 [History] metFORMIN [Glucophage XR] 500 mg PO BIDMEALS 01/31/20 [History] Nitroglycerin 0.4 mg SL ASDIRECTED PRN 01/29/21 [History] Potassium Chloride 20 meq PO BID 01/29/21 [History] Torsemide 60 mg PO BID 01/29/21 [History] metOLazone [Metolazone] 5 mg PO BID 01/29/21 [History] Torsemide [Demadex] 40 mg PO BEDTIME 06/23/21 [History] Past Medical History HEENT History: Reports: None Cardiovascular History: Reports: Heart Failure, High Cholesterol, Hypertension, Other (See Below) Other Cardiovascular History: CARDIAC PACEMAKER PLACED 03/2009. ISCHEMIC VASCULAR DISEASE. LV DYSFUNCTION Respiratory History: Reports: None Gastrointestinal History: Reports: None Genitourinary History: Reports: None Musculoskeletal History: Reports: Arthritis Neurological History: Reports: None Psychiatric History: Reports: None Endocrine/Metabolic History: Reports: Diabetes, Type II Hematologic History: Reports: None Immunologic History: Reports: None Oncologic (Cancer) History: Reports: None Dermatologic History: Reports: None - Infectious Disease History Infectious Disease History: Reports: None - Past Surgical History Head Surgeries/Procedures: Reports: None Cardiovascular Surgical History: Reports: Coronary Artery Stent, Pacer Other Cardiovascular Surgeries/Procedures: PACEMAKER PLACED 03/2009 GI Surgical History: Reports: Colonoscopy Musculoskeletal Surgical History: Reports: Amputation Other Musculoskeletal Surgeries/Procedures:: Rt. below the knee amp. Social & Family History - Family History Family Medical History: No Pertinent Family History - Tobacco Use Tobacco Use Status *Q: Never Tobacco User - Caffeine Use Caffeine Use: Reports: Coffee - Alcohol Use Days Per Week of Alcohol Use: 7 Number of Drinks Per Day: 3 Total Drinks Per Week: 21 - Recreational Drug Use Recreational Drug Use: No - Living Situation & Occupation Living situation: Reports: with Family Occupation: Disabled ED ROS GENERAL - Review of Systems Review Of Systems: Comprehensive ROS is negative, except as noted in HPI. ED EXAM, GENERAL - Physical Exam Exam: See Below Exam Limited By: No Limitations General Appearance: Alert, No Apparent Distress Eye Exam: Bilateral Eye: PERRL Nose: Normal Inspection, Normal Mucosa, No Blood Throat/Mouth: Normal Inspection, Normal Lips, Normal Teeth, Normal Gums, Normal Oropharynx, Normal Voice, No Airway Compromise Head: Atraumatic, Normocephalic Neck: Normal Inspection, Supple, Non-Tender, Full Range of Motion Respiratory/Chest: No Respiratory Distress, Lungs Clear, Normal Breath Sounds, No Accessory Muscle Use, Chest Non-Tender Cardiovascular: Normal Peripheral Pulses, Regular Rate, Rhythm, No Edema, No JVD, No Murmur, No Rub GI/Abdominal: Soft, Non-Tender (Male) Exam: Deferred Rectal (Males) Exam: Deferred Back Exam: Normal Inspection, Full Range of Motion, NT Extremities: Normal Inspection, Normal Range of Motion, Non-Tender, Normal Capillary Refill, No Pedal Edema Neurological: Alert, Oriented, CN II-XII Intact, Normal Cognition, Normal Gait, Normal Reflexes, No Motor/Sensory Deficits Psychiatric: Normal Affect, Normal Mood Skin Exam: Warm, Dry, Intact #1 Interpretation EKG Date: 06/23/21 Time: 08:49 Rhythm: Other (sinus) [place]: Normal P-Wave: Present QRS: LBBB ST-T: Normal QT: Normal Course - Vital Signs Last Recorded V/S: Last Vital Signs Temp 97.2 F 06/24/21 04:00 Pulse 85 06/24/21 04:00 Resp 20 06/24/21 04:00 BP 118/79 06/24/21 04:00 Pulse Ox 100 06/24/21 04:00 - Orders/Labs/Meds Orders: Active Orders 24 hr Category Date Time Status Admission Diagnosis [ADT] Routine ADT 06/23/21 10:47 Ordered Admission Status [Patient Status] [ADT] Routine ADT 06/23/21 10:47 Active Cardiac Monitoring [RC] Care 06/23/21 10:47 Active Peripheral IV Care [RC] Q4H Care 06/23/21 08:49 Active Sodium Chloride 0.9% [Saline Flush] Med 06/23/21 08:48 Active 10 ml FLUSH ASDIRECTED PRN Peripheral IV Insertion Adult [OM.PC] Routine Oth 06/23/21 08:49 Ordered Medication Orders Acetaminophen (Acetaminophen 325 Mg Tab) 650 mg PO Q4H PRN PRN Reason: Pain (Mild 1-3)/fever Aspirin (Aspirin 81 Mg Tab.Ec) 81 mg PO DAILY [facility] Atorvastatin Calcium (Atorvastatin 20 Mg Tab) 40 mg PO BEDTIME [facility] Last Admin: 06/23/21 20:43 Dose: 40 mg Documented by: NAIF Carvedilol (Carvedilol 6.25 Mg Tab) 6.25 mg PO BID [facility] Last Admin: 06/23/21 20:43 Dose: 6.25 mg Documented by: NAIF Clopidogrel Bisulfate (Clopidogrel 75 Mg Tab) 75 mg PO DAILY [facility] Last Admin: 06/23/21 13:12 Dose: 75 mg Documented by: FREEMAN Dextrose/Water (50% Dextrose In Water 50 Ml Syringe) 25 ml IVPUSH ASDIRECTED PRN PRN Reason: Hypoglycemia BS<70 Docusate Sodium (Docusate Sodium 100 Mg Cap) 100 mg PO BID PRN PRN Reason: Constipation Furosemide (Furosemide 20 Mg/2 Ml Vial) 20 mg IVPUSH Q8H [facility] Last Admin: 06/24/21 04:05 Dose: 20 mg Documented by: Admin: 06/23/21 20:43 Dose: 20 mg Documented by: Admin: 06/23/21 12:47 Dose: 20 mg Documented by: FREEMAN Gabapentin (Gabapentin 400 Mg Cap) 400 mg PO DAILY [facility] Heparin Sodium (Porcine) (Heparin Sodium 5,000 Units/Ml Vial) 5,000 units SUBCUT Q8HR [facility] Last Admin: 06/24/21 05:16 Dose: 5,000 units Documented by: Admin: 06/23/21 22:44 Dose: 5,000 units Documented by: Admin: 06/23/21 13:12 Dose: 5,000 units Documented by: FREEMAN Insulin Glargine (Insulin Glarg,Human.Rec.Analog 100 Unit/Ml) 27 unit SUBCUT BID [facility] Last Admin: 06/23/21 22:43 Dose: 27 units Documented by: NAIF Insulin Human Lispro (Insulin Lispro 100 Units/Ml 3 Ml Vial) 0 unit SUBCUT WITHMEALSANDBED [facility]; Protocol Last Admin: 06/23/21 22:42 Dose: Not Given Documented by: Admin: 06/23/21 17:10 Dose: Not Given Documented by: Admin: 06/23/21 16:54 Dose: 2 units Documented by: FREEMAN Insulin Human Lispro (Insulin Lispro 100 Units/Ml 3 Ml Vial) 8 unit SUBCUT TIDMEALS [facility] Last Admin: 06/23/21 16:53 Dose: 8 unit Documented by: FREEMAN Levothyroxine Sodium (Levothyroxine 112 Mcg Tab) 112 mcg PO DAILY [facility] Lorazepam (Lorazepam 0.5 Mg Tab) 1 mg PO Q6H PRN PRN Reason: Anxiety Last Admin: 06/24/21 05:21 Dose: 1 mg Documented by: NAIF Morphine Sulfate (Morphine 2 Mg/Ml Syringe) 2 mg IVPUSH Q2H PRN PRN Reason: Pain (severe 7-10) Omeprazole (Omeprazole 20 Mg Cap.Cr) 20 mg PO ACBREAKFAST [facility] Last Admin: 06/24/21 05:17 Dose: 20 mg Documented by: NAIF Ondansetron HCl (Ondansetron 4 Mg Tab.Dis) 4 mg PO Q6H PRN PRN Reason: nausea, able to take PO Last Admin: 06/24/21 05:17 Dose: 4 mg Documented by: NAIF Oxycodone HCl (Oxycodone 5 Mg Tab) 5 mg PO Q4H PRN PRN Reason: Pain (moderate 4-6) Potassium Chloride (Potassium Chloride 10 Meq Tab.Er) 20 meq PO BID JESUS ALBERTO Sodium Chloride (Sodium Chloride 0.9% 10 Ml Syringe) 10 ml FLUSH ASDIRECTED PRN PRN Reason: Keep Vein Open Last Admin: 06/23/21 12:49 Dose: 10 ml Documented by: Admin: 06/23/21 09:37 Dose: 10 ml Documented by: AMAURY Temazepam (Temazepam 15 Mg Cap) 15 mg PO BEDTIME PRN PRN Reason: Sleep Labs: Laboratory Tests 06/23/21 06/23/21 06/23/21 Range/Units 08:50 08:50 08:50 WBC 4.7 L (5.0-10.0) 10^3/uL RBC 5.09 (4.6-6.2) 10^6/uL Hgb 11.4 L (14.0-18.0) g/dL Hct 35.7 L (40.0-54.0) % MCV 70.1 L (80-100) fL MCH 22.4 L (27.0-34.0) pg MCHC 31.9 L (33.0-35.0) g/dL Plt Count 244 (150-450) 10^3/uL Neut % (Auto) 56.1 (42.2-75.2) % Lymph % (Auto) 20.0 L (20.5-50.1) % Rush % (Auto) 15.5 H (2-8) % Eos % (Auto) 6.9 H (1.0-3.0) % Baso % (Auto) 1.5 H (0.0-1.0) % Sodium 129 L (136-145) mmol/L Potassium 2.9 L (3.5-5.1) mmol/L Chloride 90 L (98-107) mmol/L Carbon Dioxide 31 (21-32) mmol/L Anion Gap 10.9 (7-13) mEq/L BUN 34 H (7-18) mg/dL Creatinine 1.19 (0.70-1.30) mg/dL Est Cr Clr Drug Dosing 67.06 mL/min Estimated GFR (MDRD) > 60 BUN/Creatinine Ratio 28.6 (No establ ref range) Glucose 224 H (70-99) mg/dL Lactic Acid 2.0 (0.4-2.0) mmol/L Calcium 7.9 L (8.5-10.1) mg/dL Magnesium 2.7 H (1.8-2.4) mg/dL Total Bilirubin 0.8 (0.2-1.0) mg/dL AST 24 (15-37) U/L ALT 14 L (16-63) U/L Alkaline Phosphatase 189 H (46-116) U/L Troponin I High Sens 388 H* (<=76) pg/mL B-Natriuretic Peptide 1060 H (0-100) pg/ml Total Protein 6.8 (6.4-8.2) g/dL Albumin 2.6 L (3.4-5.0) g/dL Globulin 4.2 Albumin/Globulin Ratio 0.62 SARS-CoV-2 RNA (CHARLENE) (NEGATIVE) 06/23/21 Range/Units 10:15 WBC (5.0-10.0) 10^3/uL RBC (4.6-6.2) 10^6/uL Hgb (14.0-18.0) g/dL Hct (40.0-54.0) % MCV (80-100) fL MCH (27.0-34.0) pg MCHC (33.0-35.0) g/dL Plt Count (150-450) 10^3/uL Neut % (Auto) (42.2-75.2) % Lymph % (Auto) (20.5-50.1) % Rush % (Auto) (2-8) % Eos % (Auto) (1.0-3.0) % Baso % (Auto) (0.0-1.0) % Sodium (136-145) mmol/L Potassium (3.5-5.1) mmol/L Chloride (98-107) mmol/L Carbon Dioxide (21-32) mmol/L Anion Gap (7-13) mEq/L BUN (7-18) mg/dL Creatinine (0.70-1.30) mg/dL Est Cr Clr Drug Dosing mL/min Estimated GFR (MDRD) BUN/Creatinine Ratio (No establ ref range) Glucose (70-99) mg/dL Lactic Acid (0.4-2.0) mmol/L Calcium (8.5-10.1) mg/dL Magnesium (1.8-2.4) mg/dL Total Bilirubin (0.2-1.0) mg/dL AST (15-37) U/L ALT (16-63) U/L Alkaline Phosphatase (46-116) U/L Troponin I High Sens (<=76) pg/mL B-Natriuretic Peptide (0-100) pg/ml Total Protein (6.4-8.2) g/dL Albumin (3.4-5.0) g/dL Globulin Albumin/Globulin Ratio SARS-CoV-2 RNA (CHARLENE) Negative (NEGATIVE) Meds: Medications Generic Name Dose Route Start Last Admin Trade Name Freq PRN Reason Stop Dose Admin Acetaminophen 650 mg 06/23/21 12:38 Acetaminophen 325 Mg Tab PO Q4H PRN Pain (Mild 1-3)/fever Aspirin 81 mg 06/24/21 09:00 Aspirin 81 Mg Tab.Ec PO DAILY [facility] Atorvastatin Calcium 40 mg 06/23/21 21:00 06/23/21 20:43 Atorvastatin 20 Mg Tab PO 40 mg BEDTIME JESUS ALBERTO Administration Carvedilol 6.25 mg 06/23/21 21:00 06/23/21 20:43 Carvedilol 6.25 Mg Tab PO 6.25 mg BID JESUS ALBERTO Administration Clopidogrel Bisulfate 75 mg 06/23/21 13:00 06/23/21 13:12 Clopidogrel 75 Mg Tab PO 75 mg DAILY JESUS ALBERTO Administration Dextrose/Water 25 ml 06/23/21 12:01 50% Dextrose In Water 50 Ml Syringe IVPUSH ASDIRECTED PRN Hypoglycemia BS<70 Docusate Sodium 100 mg 06/23/21 12:38 Docusate Sodium 100 Mg Cap PO BID PRN Constipation Furosemide 20 mg 06/23/21 12:30 06/24/21 04:05 Furosemide 20 Mg/2 Ml Vial IVPUSH 20 mg Q8H JESUS ALBERTO Administration Gabapentin 400 mg 06/24/21 09:00 Gabapentin 400 Mg Cap PO DAILY JESUS ALBERTO Heparin Sodium (Porcine) 5,000 units 06/23/21 14:00 06/24/21 05:16 Heparin Sodium 5,000 Units/Ml Vial SUBCUT 5,000 units Q8HR JESUS ALBERTO Administration Insulin Glargine 27 unit 06/23/21 21:00 06/23/21 22:43 Insulin Glarg,Human.Rec.Analog 100 Unit/Ml SUBCUT 27 units BID JESUS ALBERTO Administration Insulin Human Lispro 0 unit 06/23/21 18:00 06/23/21 22:42 Insulin Lispro 100 Units/Ml 3 Ml Vial SUBCUT Not Given WITHMEALSANDBED [facility] Protocol Insulin Human Lispro 8 unit 06/23/21 17:00 06/23/21 16:53 Insulin Lispro 100 Units/Ml 3 Ml Vial SUBCUT 8 unit TIDMEALS JESUS ALBERTO Administration Levothyroxine Sodium 112 mcg 06/24/21 09:00 Levothyroxine 112 Mcg Tab PO DAILY JESUS ALBERTO Lorazepam 1 mg 06/23/21 16:37 06/24/21 05:21 Lorazepam 0.5 Mg Tab PO 1 mg Q6H PRN Administration Anxiety Morphine Sulfate 2 mg 06/23/21 12:38 Morphine 2 Mg/Ml Syringe IVPUSH Q2H PRN Pain (severe 7-10) Omeprazole 20 mg 06/24/21 06:00 06/24/21 05:17 Omeprazole 20 Mg Cap.Cr PO 20 mg ACBREAKFAST JESUS ALBERTO Administration Ondansetron HCl 4 mg 06/23/21 12:38 06/24/21 05:17 Ondansetron 4 Mg Tab.Dis PO 4 mg Q6H PRN Administration nausea, able to take PO Oxycodone HCl 5 mg 06/23/21 12:38 Oxycodone 5 Mg Tab PO Q4H PRN Pain (moderate 4-6) Potassium Chloride 20 meq 06/24/21 09:00 Potassium Chloride 10 Meq Tab.Er PO BID JESUS ALBERTO Sodium Chloride 10 ml 06/23/21 08:48 06/23/21 12:49 Sodium Chloride 0.9% 10 Ml Syringe FLUSH 10 ml ASDIRECTED PRN Administration Keep Vein Open Temazepam 15 mg 06/23/21 12:38 Temazepam 15 Mg Cap PO BEDTIME PRN Sleep Discontinued Medications Generic Name Dose Route Start Last Admin Trade Name Freq PRN Reason Stop Dose Admin Furosemide 20 mg 06/23/21 12:00 Furosemide 20 Mg/2 Ml Vial IVPUSH .Q8H [facility] Insulin Human Lispro 8 unit 06/23/21 14:00 06/23/21 12:48 Insulin Lispro 100 Units/Ml 3 Ml Vial SUBCUT 8 units TID JESUS ALBERTO Administration Lorazepam 0.5 mg 06/23/21 12:42 06/23/21 14:39 Lorazepam 0.5 Mg Tab PO 0.5 mg Q6H PRN Administration Anxiety Lorazepam 1 mg 06/23/21 16:36 06/23/21 16:53 Lorazepam 1 Mg Tab PO 06/23/21 16:37 1 mg ONETIME ONE Administration Potassium Chloride 40 meq 06/23/21 10:10 06/23/21 10:27 Potassium Chloride 10 Meq Tab.Er PO 06/23/21 10:11 40 meq ONETIME ONE Administration Potassium Chloride 40 meq 06/23/21 12:00 06/23/21 12:42 Potassium Chloride 10 Meq Tab.Er PO 06/24/21 00:01 Not Given Q6H JESUS ALBERTO Potassium Chloride 40 meq 06/23/21 16:00 06/24/21 04:06 Potassium Chloride 10 Meq Tab.Er PO 06/24/21 04:01 40 meq Q6H JESUS ALBERTO Administration - Re-Assessments/Exams Free Text/Narrative Re-Assessment/Exam: 06/23/21 10:[address] Greene with cardiology about the pt. He asked that the pt be admitted here for diuresis and further care. I spoke with Dr. Chapman who acgreed to admit the pt for inpatient treatment. Departure - Departure Time of Disposition: 10:45 (Dr. Chapman) Disposition: Admitted As Inpatient 66 Condition: Good Clinical Impression: Hyponatremia, Hypokalemia Congestive cardiac failure Qualifiers: Heart failure type: systolic Heart failure chronicity: chronic Qualified Code(s): I50.22 - Chronic systolic (congestive) heart failure - Discharge Information *PRESCRIPTION DRUG MONITORING PROGRAM REVIEWED*: Not Applicable *COPY OF PRESCRIPTION DRUG MONITORING REPORT IN PATIENT ALISA: Not Applicable Sepsis Event Note (ED) - Evaluation Sepsis Screening Result: No Definite Risk - My Orders Last 24 Hours: My Active Orders 06/23/21 08:48 Sodium Chloride 0.9% [Saline Flush] 10 ml FLUSH ASDIRECTED PRN 06/23/21 08:49 Peripheral IV Care [RC] Q4H Peripheral IV Insertion Adult [OM.PC] Routine 06/23/21 10:47 Admission Diagnosis [ADT] Routine Admission Status [Patient Status] [ADT] Routine Cardiac Monitoring [RC] - Assessment/Plan Last 24 Hours: My Active Orders 06/23/21 08:48 Sodium Chloride 0.9% [Saline Flush] 10 ml FLUSH ASDIRECTED PRN 06/23/21 08:49 Peripheral IV Care [RC] Q4H Peripheral IV Insertion Adult [OM.PC] Routine 06/23/21 10:47 Admission Diagnosis [ADT] Routine Admission Status [Patient Status] [ADT] Routine Cardiac Monitoring [RC]
--- NOTE | 2021-06-23 10:43 | CR ---
PROCEDURE INFORMATION: Exam: XR Chest Exam date and time: 06/23/2021 9:07 AM Age: 56 years old Clinical indication: Shortness of breath; Additional info: SOB TECHNIQUE: Imaging protocol: XR of the chest. Views: 1 view. COMPARISON: CR Chest 1V Frontal 01/29/2021 1:46 AM FINDINGS: Tubes, catheters and devices: Unchanged left AICD. Lungs: The lungs are normally expanded and clear. Pleural spaces: Normal. Heart/Mediastinum: Chronic severe cardiomegaly. Vasculature: Normal pulmonary vessels and width of the vascular pedicle. Bones/joints: Intact and normally aligned. No suspicious lesion. IMPRESSION: Unchanged severe cardiomegaly. No acute disease.
[2021-06-23] MEDS ORDERED: Potassium Chloride 10 MEQ Tab.ER PO SCH (12:00)
[2021-06-23] MEDS ORDERED: Furosemide 20 MG/2 ML VIAL IVPUSH SCH (12:00)
[2021-06-23] MEDS ORDERED: 50% Dextrose in Water 50 ML Syringe IVPUSH PRN (12:01)
[2021-06-23] MEDS ORDERED: oxyCODONE 5 MG Tab PO PRN (12:38)
[2021-06-23] MEDS ORDERED: Docusate Sodium 100 MG Cap PO PRN (12:38)
[2021-06-23] MEDS ORDERED: Morphine 2 MG/ML SYRINGE IVPUSH PRN (12:38)
[2021-06-23] MEDS ORDERED: Acetaminophen 325 MG Tab PO PRN (12:38)
[2021-06-23] MEDS ORDERED: LORazepam 0.5 MG Tab PO PRN (12:42)
[2021-06-23] MEDS: Furosemide 20 MG/2 ML VIAL IVPUSH SCH ×2 (12:47→20:43)
--- NOTE | 2021-06-23 12:57 | PCM.HP ---
H&P History of Present Illness - General Date of Service: 06/23/21 Admit Problem/Dx: Admission Diagnosis/Problem Admission Diagnosis/Problem Congestive heart failure Source of Information: Patient, Provider - History of Present Illness Initial Comments - Free Text/Narative: 56 yo with h/o cad, dm, htn presented with increasing sob for ays, sob is moderate associated with left leg swelling, no cp sob is worse with activity he is scheduled to have cardiac cath on tu - Related Data Allergies/Adverse Reactions: Allergies Allergy/AdvReac Type Severity Reaction Status Date / Time No Known Allergies Allergy Verified 06/23/21 11:17 Home Medications: Home Meds Aspirin [Ecotrin] 81 mg PO DAILY 06/11/18 [History] Insulin Detemir [Levemir Flextouch] 27 units SQ BID 06/11/18 [History] Gabapentin [Neurontin] 400 mg PO DAILY 09/12/19 [History] Insulin Aspart [NovoLOG] 8 units SQ TID 09/12/19 [History] Levothyroxine 112 mcg PO DAILY 01/31/20 [History] Omeprazole 20 mg PO DAILY 01/31/20 [History] atorvaSTATin [Lipitor] 40 mg PO BEDTIME 01/31/20 [History] carvediloL [Carvedilol] 6.25 mg PO BID 01/31/20 [History] metFORMIN [Glucophage XR] 500 mg PO BIDMEALS 01/31/20 [History] Nitroglycerin 0.4 mg SL ASDIRECTED PRN 01/29/21 [History] Potassium Chloride 20 meq PO BID 01/29/21 [History] Torsemide 60 mg PO BID 01/29/21 [History] metOLazone [Metolazone] 5 mg PO BID 01/29/21 [History] Torsemide [Demadex] 40 mg PO BEDTIME 06/23/21 [History] Past Medical History HEENT History: Reports: None Cardiovascular History: Reports: Heart Failure, High Cholesterol, Hypertension, Other (See Below) Other Cardiovascular History: CARDIAC PACEMAKER PLACED 03/2009. ISCHEMIC VASCULAR DISEASE. LV DYSFUNCTION Respiratory History: Reports: None Gastrointestinal History: Reports: None Genitourinary History: Reports: None Musculoskeletal History: Reports: Arthritis Neurological History: Reports: None Psychiatric History: Reports: None Endocrine/Metabolic History: Reports: Diabetes, Type II Hematologic History: Reports: None Immunologic History: Reports: None Oncologic (Cancer) History: Reports: None Dermatologic History: Reports: None - Infectious Disease History Infectious Disease History: Reports: None - Past Surgical History Head Surgeries/Procedures: Reports: None Cardiovascular Surgical History: Reports: Coronary Artery Stent, Pacer Other Cardiovascular Surgeries/Procedures: PACEMAKER PLACED 03/2009 GI Surgical History: Reports: Colonoscopy Musculoskeletal Surgical History: Reports: Amputation Other Musculoskeletal Surgeries/Procedures:: Rt. below the knee amp. Social & Family History - Family History Family Medical History: No Pertinent Family History - Tobacco Use Tobacco Use Status *Q: Never Tobacco User - Caffeine Use Caffeine Use: Reports: Coffee - Alcohol Use Days Per Week of Alcohol Use: 7 Number of Drinks Per Day: 3 Total Drinks Per Week: 21 - Recreational Drug Use Recreational Drug Use: No - Living Situation & Occupation Living situation: Reports: with Family Occupation: Disabled H&P Review of Systems - Review of Systems: Review Of Systems: See Below General: Reports: Malaise. Denies: Fever, Chills Pulmonary: Reports: Shortness of Breath. Denies: Wheezing, Cough, Sputum Cardiovascular: Reports: Edema. Denies: Chest Pain Gastrointestinal: Denies: Diarrhea Skin: Reports: No Symptoms Psychiatric: Denies: Confusion Exam - Exam Exam: See Below - Vital Signs Vital Signs: Last Vital Signs Temp 96.9 F 06/23/21 11:22 Pulse 91 06/23/21 11:22 Resp 20 06/23/21 11:22 BP 138/91 H 06/23/21 11:22 Pulse Ox 100 06/23/21 11:22 Weight: 238 lb 4.8 oz - Exam Quality Assessment: No: Supplemental Oxygen General: Alert, Oriented Neck: Supple Lungs: Normal Respiratory Effort, Decreased Breath Sounds. No: Rhonchi, Wheezing Cardiovascular: Regular Rate, Regular Rhythm GI/Abdominal Exam: Normal Bowel Sounds, Soft, Non-Tender Extremities: Pedal Edema (left LE), Other (s/p r. BKA) Skin: Warm Neuro Extensive - Mental Status: Alert, Oriented x3, Normal Mood/Affect Psychiatric: Alert, Anxious - Patient Data Lab Results Last 24 hrs: Laboratory Results - last 24 hr 06/23/21 06/23/21 06/23/21 Range/Units 08:50 08:50 08:50 WBC 4.7 L (5.0-10.0) 10^3/uL RBC 5.09 (4.6-6.2) 10^6/uL Hgb 11.4 L (14.0-18.0) g/dL Hct 35.7 L (40.0-54.0) % MCV 70.1 L (80-100) fL MCH 22.4 L (27.0-34.0) pg MCHC 31.9 L (33.0-35.0) g/dL Plt Count 244 (150-450) 10^3/uL Neut % (Auto) 56.1 (42.2-75.2) % Lymph % (Auto) 20.0 L (20.5-50.1) % [place] % (Auto) 15.5 H (2-8) % Eos % (Auto) 6.9 H (1.0-3.0) % Baso % (Auto) 1.5 H (0.0-1.0) % Sodium 129 L (136-145) mmol/L Potassium 2.9 L (3.5-5.1) mmol/L Chloride 90 L (98-107) mmol/L Carbon Dioxide 31 (21-32) mmol/L Anion Gap 10.9 (7-13) mEq/L BUN 34 H (7-18) mg/dL Creatinine 1.19 (0.70-1.30) mg/dL Est Cr Clr Drug Dosing 67.06 mL/min Estimated GFR (MDRD) > 60 BUN/Creatinine Ratio 28.6 (No establ ref range) Glucose 224 H (70-99) mg/dL Lactic Acid 2.0 (0.4-2.0) mmol/L Calcium 7.9 L (8.5-10.1) mg/dL Magnesium 2.7 H (1.8-2.4) mg/dL Total Bilirubin 0.8 (0.2-1.0) mg/dL AST 24 (15-37) U/L ALT 14 L (16-63) U/L Alkaline Phosphatase 189 H (46-116) U/L Troponin I High Sens 388 H* (<=76) pg/mL B-Natriuretic Peptide 1060 H (0-100) pg/ml Total Protein 6.8 (6.4-8.2) g/dL Albumin 2.6 L (3.4-5.0) g/dL Globulin 4.2 Albumin/Globulin Ratio 0.62 SARS-CoV-2 RNA (CHARLENE) (NEGATIVE) 06/23/21 Range/Units 10:15 WBC (5.0-10.0) 10^3/uL RBC (4.6-6.2) 10^6/uL Hgb (14.0-18.0) g/dL Hct (40.0-54.0) % MCV (80-100) fL MCH (27.0-34.0) pg MCHC (33.0-35.0) g/dL Plt Count (150-450) 10^3/uL Neut % (Auto) (42.2-75.2) % Lymph % (Auto) (20.5-50.1) % [place] % (Auto) (2-8) % Eos % (Auto) (1.0-3.0) % Baso % (Auto) (0.0-1.0) % Sodium (136-145) mmol/L Potassium (3.5-5.1) mmol/L Chloride (98-107) mmol/L Carbon Dioxide (21-32) mmol/L Anion Gap (7-13) mEq/L BUN (7-18) mg/dL Creatinine (0.70-1.30) mg/dL Est Cr Clr Drug Dosing mL/min Estimated GFR (MDRD) BUN/Creatinine Ratio (No establ ref range) Glucose (70-99) mg/dL Lactic Acid (0.4-2.0) mmol/L Calcium (8.5-10.1) mg/dL Magnesium (1.8-2.4) mg/dL Total Bilirubin (0.2-1.0) mg/dL AST (15-37) U/L ALT (16-63) U/L Alkaline Phosphatase (46-116) U/L Troponin I High Sens (<=76) pg/mL B-Natriuretic Peptide (0-100) pg/ml Total Protein (6.4-8.2) g/dL Albumin (3.4-5.0) g/dL Globulin Albumin/Globulin Ratio SARS-CoV-2 RNA (CHARLENE) Negative (NEGATIVE) Result Diagrams: 06/23/21 08:50 06/23/21 08:50 - Problem List (1) Acute exacerbation of CHF (congestive heart failure) SNOMED Code(s): 385814474, 65991811417932 ICD Code: I50.9 - HEART FAILURE, UNSPECIFIED Status: Acute Current Visit: No Qualifiers: Heart failure type: unspecified Qualified Code(s): I50.9 - Heart failure, unspecified (2) Anxiety about health SNOMED Code(s): 117557484 ICD Code: F41.8 - OTHER SPECIFIED ANXIETY DISORDERS Status: Acute Current Visit: No (3) CHF (congestive heart failure) SNOMED Code(s): 98811902 ICD Code: I50.9 - HEART FAILURE, UNSPECIFIED Status: Acute Current Visit: No Qualifiers: Heart failure type: systolic Heart failure chronicity: chronic Qualified Code(s): I50.22 - Chronic systolic (congestive) heart failure (4) Diabetes SNOMED Code(s): 95492771 ICD Code: E11.9 - TYPE 2 DIABETES MELLITUS WITHOUT COMPLICATIONS Status: Acute Current Visit: No Qualifiers: Diabetes mellitus type: type 2 Diabetes mellitus terminal carman insulin use: with senior living use Diabetes mellitus complication status: without complication Qualified Code(s): E11.9 - Type 2 diabetes mellitus without complications; Z79.4 - termite control technician (current) use of insulin (5) Hx of right BKA SNOMED Code(s): 866427862096069, 769559625388467 ICD Code: Z89.511 - ACQUIRED ABSENCE OF RIGHT LEG BELOW KNEE Status: Acute Current Visit: No (6) Hypokalemia SNOMED Code(s): 34971959 ICD Code: E87.6 - HYPOKALEMIA Status: Acute Current Visit: No (7) Hyponatremia SNOMED Code(s): 42845684 ICD Code: E87.1 - HYPO-OSMOLALITY AND HYPONATREMIA Status: Acute Current Visit: No (8) NSTEMI (non-ST elevated myocardial infarction) SNOMED Code(s): 92154812 ICD Code: I21.4 - NON-ST ELEVATION (NSTEMI) MYOCARDIAL INFARCTION Status: Acute Current Visit: No (9) Shortness of breath SNOMED Code(s): 728131066 ICD Code: R06.02 - SHORTNESS OF BREATH Status: Acute Current Visit: No Problem List Initiated/Reviewed/Updated: Yes Orders Last 24hrs: Active Orders 24 hr Category Date Time Status Admission Diagnosis [ADT] Routine ADT 06/23/21 10:47 Ordered Admission Status [Patient Status] [ADT] Routine ADT 06/23/21 10:47 Active Antiembolic Devices [RC] PER UNIT ROUTINE Care 06/23/21 12:40 Ordered Blood Glucose Check, Bedside [RC] WITHMEALSANDBED Care 06/23/21 12:01 Ordered Cardiac Monitoring [RC] . DIRECTED Care 06/23/21 10:47 Active Oxygen Therapy [RC] PRN Care 06/23/21 12:06 Ordered Peripheral IV Care [RC] . DIRECTED Care 06/23/21 08:49 Active Up With Assistance [RC] ASDIRECTED Care 06/23/21 12:38 Ordered VTE/DVT Education [RC] PER UNIT ROUTINE Care 06/23/21 12:06 Ordered Vital Signs [RC] Q4H Care 06/23/21 12:06 Ordered Consistent Carbohydrate Diet [DIET] Diet 06/23/21 Dinner Ordered B-TYPE NATRIURETIC PEPTIDE,BNP [CHEM] AM Lab 06/24/21 05:11 Ordered B-TYPE NATRIURETIC PEPTIDE,BNP [CHEM] AM Lab 06/25/21 05:11 Ordered B-TYPE NATRIURETIC PEPTIDE,BNP [CHEM] AM Lab 06/26/21 05:11 Ordered B-TYPE NATRIURETIC PEPTIDE,BNP [CHEM] AM Lab 06/27/21 05:11 Ordered BASIC METABOLIC PANEL,BMP [CHEM] AM Lab 06/24/21 05:11 Ordered BASIC METABOLIC PANEL,BMP [CHEM] AM Lab 06/25/21 05:11 Ordered BASIC METABOLIC PANEL,BMP [CHEM] AM Lab 06/26/21 05:11 Ordered BASIC METABOLIC PANEL,BMP [CHEM] AM Lab 06/27/21 05:11 Ordered BASIC METABOLIC PANEL,BMP [CHEM] AM Lab 06/28/21 05:11 Ordered BASIC METABOLIC PANEL,BMP [CHEM] AM Lab 06/29/21 05:11 Ordered BASIC METABOLIC PANEL,BMP [CHEM] Timed Lab 06/23/21 16:00 Ordered CBC WITH AUTO DIFF [HEME] AM Lab 06/24/21 05:11 Ordered CBC WITH AUTO DIFF [HEME] AM Lab 06/25/21 05:11 Ordered CBC WITH AUTO DIFF [HEME] AM Lab 06/26/21 05:11 Ordered CBC WITH AUTO DIFF [HEME] AM Lab 06/27/21 05:11 Ordered CBC WITH AUTO DIFF [HEME] AM Lab 06/28/21 05:11 Ordered CBC WITH AUTO DIFF [HEME] AM Lab 06/29/21 05:11 Ordered TROPONIN I HIGH SENSITIVITY [CHEM] Routine Lab 06/23/21 16:00 Ordered UA RFX HERMES AND CULT IF INDIC [URIN] Stat Lab 06/23/21 08:49 Ordered Acetaminophen [TylenoL] Med 06/23/21 12:38 Ordered 650 mg PO Q4H PRN Aspirin [Halfprin] Med 06/24/21 09:00 Ordered 81 mg PO DAILY Clopidogrel [Plavix] Med 06/23/21 13:00 Ordered 75 mg PO DAILY Dextrose 50% in Water Med 06/23/21 12:01 Ordered 25 ml IVPUSH ASDIRECTED PRN Docusate Sodium [Colace] Med 06/23/21 12:38 Ordered 100 mg PO BID PRN Furosemide [Lasix] Med 06/23/21 12:30 Active 20 mg IVPUSH Q8H Gabapentin [Neurontin] Med 06/24/21 09:00 Ordered 400 mg PO DAILY Heparin Sodium Med 06/23/21 14:00 Ordered 5,000 units SUBCUT Q8HR Insulin Aspart [NovoLOG] Med 06/23/21 14:00 Ordered 8 units SQ TID Insulin Detemir Med 06/23/21 21:00 Ordered 27 units SQ BID Insulin Lispro [HumaLOG] Med 06/23/21 18:00 Ordered See Protocol SUBCUT WITHMEALSANDBED LORazepam [Ativan] Med 06/23/21 12:42 Ordered 0.5 mg PO Q6H PRN Levothyroxine Med 06/24/21 09:00 Ordered 112 mcg PO DAILY Morphine Med 06/23/21 12:38 Ordered 2 mg IVPUSH Q2H PRN Omeprazole Med 06/24/21 09:00 Ordered 20 mg PO DAILY Ondansetron [Zofran ODT] Med 06/23/21 12:38 Ordered 4 mg PO Q6H PRN Potassium Chloride [Klor-Con 10] Med 06/23/21 16:00 Active 40 meq PO Q6H Potassium Chloride [Potassium Chloride] Med 06/24/21 09:00 Ordered 20 meq PO BID Sodium Chloride 0.9% [Saline Flush] Med 06/23/21 08:48 Active 10 ml FLUSH ASDIRECTED PRN Temazepam [Restoril] Med 06/23/21 12:38 Ordered 15 mg PO BEDTIME PRN atorvaSTATin [Lipitor] Med 06/23/21 21:00 Ordered 40 mg PO BEDTIME carvediloL [Coreg] Med 06/23/21 21:00 Ordered 6.25 mg PO BID oxyCODONE Med 06/23/21 12:38 Ordered 5 mg PO Q4H PRN Antiembolic Hose [OM.PC] Per Unit Routine Oth 06/23/21 12:40 Ordered Peripheral IV Insertion Adult [OM.PC] Routine Oth 06/23/21 08:49 Ordered Saline Lock Insert [OM.PC] Routine Oth 06/23/21 12:38 Ordered Resuscitation Status Routine Resus Stat 06/23/21 12:06 Ordered Medication Orders Acetaminophen (Acetaminophen 325 Mg Tab) 650 mg PO Q4H PRN PRN Reason: Pain (Mild 1-3)/fever Aspirin (Aspirin 81 Mg Tab.Ec) 81 mg PO DAILY [facility] Atorvastatin Calcium (Atorvastatin 20 Mg Tab) 40 mg PO BEDTIME [facility] Carvedilol (Carvedilol 6.25 Mg Tab) 6.25 mg PO BID [facility] Clopidogrel Bisulfate (Clopidogrel 75 Mg Tab) 75 mg PO DAILY [facility] Dextrose/Water (50% Dextrose In Water 50 Ml Syringe) 25 ml IVPUSH ASDIRECTED PRN PRN Reason: Hypoglycemia BS<70 Docusate Sodium (Docusate Sodium 100 Mg Cap) 100 mg PO BID PRN PRN Reason: Constipation Furosemide (Furosemide 20 Mg/2 Ml Vial) 20 mg IVPUSH Q8H [facility] Last Admin: 06/23/21 12:47 Dose: 20 mg Documented by: FREEMAN Gabapentin (Gabapentin 400 Mg Cap) 400 mg PO DAILY [facility] Heparin Sodium (Porcine) (Heparin Sodium 5,000 Units/Ml Vial) 5,000 units SUBCUT Q8HR [facility] Insulin Glargine (Insulin Glarg,Human.Rec.Analog 100 Unit/Ml) 27 unit SUBCUT BID [facility] Insulin Human Lispro (Insulin Lispro 100 Units/Ml 3 Ml Vial) 0 unit SUBCUT WITHMEALSANDBED [facility]; Protocol Insulin Human Lispro (Insulin Lispro 100 Units/Ml 3 Ml Vial) 8 unit SUBCUT TID [facility] Last Admin: 06/23/21 12:48 Dose: 8 units Documented by: FREEMAN Levothyroxine Sodium (Levothyroxine 112 Mcg Tab) 112 mcg PO DAILY [facility] Lorazepam (Lorazepam 0.5 Mg Tab) 0.5 mg PO Q6H PRN PRN Reason: Anxiety Morphine Sulfate (Morphine 2 Mg/Ml Syringe) 2 mg IVPUSH Q2H PRN PRN Reason: Pain (severe 7-10) Omeprazole (Omeprazole 20 Mg Cap.Cr) 20 mg PO ACBREAKFAST [facility]ES[facility] ALBERTO Ondansetron HCl (Ondansetron 4 Mg Tab.Dis) 4 mg PO Q6H PRN PRN Reason: nausea, able to take PO Oxycodone HCl (Oxycodone 5 Mg Tab) 5 mg PO Q4H PRN PRN Reason: Pain (moderate 4-6) Potassium Chloride (Potassium Chloride 10 Meq Tab.Er) 40 meq PO Q6H [facility] Stop: 06/24/21 04:01 Potassium Chloride (Potassium Chloride 10 Meq Tab.Er) 20 meq PO BID [facility] Sodium Chloride (Sodium Chloride 0.9% 10 Ml Syringe) 10 ml FLUSH ASDIRECTED PRN PRN Reason: Keep Vein Open Last Admin: 06/23/21 12:49 Dose: 10 ml Documented by: Admin: 06/23/21 09:37 Dose: 10 ml Documented by: AMAURY Temazepam (Temazepam 15 Mg Cap) 15 mg PO BEDTIME PRN PRN Reason: Sleep Assessment/Plan Comment:: Chf, acute on chronic likely systolic given h/o cad Will treat with IV Lasix Hold PO Torsemide and metolazone for now Check BNP in AM Follow elytes Acute non st mi With elevated troponins Follow on tele Trend troponins Plan for angiogram on fri with improved fluid status Treat with asa, plavix, coreg, lipitor Hyponatremia Hypovolemic Follow with diuresis Fluid restriction Hypokalemia Will give PO supplement Follow with diuretics DM Hold metformin Treat with levemir, humolog Follow BS qac+HS Supplemental insulin as needed Hypothyroidism Resume levothyroxine dvt prophylaxis with sq heparin
[2021-06-23] MEDS: Clopidogrel 75 MG Tab PO SCH (13:12)
[2021-06-23] MEDS: Heparin Sodium 5,000 Units/ML Vial SUBCUT SCH ×2 (13:12→22:44)
[2021-06-23] MEDS ORDERED: Insulin Lispro 100 Units/ML 3 ML Vial SUBCUT SCH (14:00)
[2021-06-23] MEDS ORDERED: LORazepam 1 MG Tab PO ONE (16:36)
[2021-06-23 16:40] LABS: ANION GAP 9.1 mEq/L (7-13); CHLORIDE,CL 93 mmol/L (98-107); SODIUM,NA 131 mmol/L (136-145)
[2021-06-23] MEDS: Insulin Lispro 100 Units/ML 3 ML Vial SUBCUT SCH ×4 (16:53→22:42)
[2021-06-23] MEDS: Potassium Chloride 10 MEQ Tab.ER PO SCH ×2 (16:53→22:44)
[2021-06-23] MEDS: Carvedilol 6.25 MG Tab PO SCH (20:43)
[2021-06-23] MEDS: atorvaSTATin 20 MG Tab PO SCH (20:43)
[2021-06-23] MEDS: Insulin Glarg,Human.Rec.Analog 100 Unit/ML SUBCUT SCH (22:43)
[2021-06-24] MEDS: Furosemide 20 MG/2 ML VIAL IVPUSH SCH ×3 (04:05→21:08)
[2021-06-24] MEDS: Potassium Chloride 10 MEQ Tab.ER PO SCH ×3 (04:06→21:07)
[2021-06-24] MEDS: Heparin Sodium 5,000 Units/ML Vial SUBCUT SCH ×3 (05:16→21:08)
[2021-06-24] MEDS: Omeprazole 20 MG Cap.CR PO SCH (05:17)
[2021-06-24] MEDS: Ondansetron 4 MG Tab.DIS PO PRN (05:17)
[2021-06-24] MEDS: LORazepam 0.5 MG Tab PO PRN ×3 (05:21→21:12)
[2021-06-24 06:33] LABS: ANION GAP 12.2 mEq/L (7-13); CHLORIDE,CL 98 mmol/L (98-107); SODIUM,NA 135 mmol/L (136-145)
[2021-06-24] MEDS: Insulin Lispro 100 Units/ML 3 ML Vial SUBCUT SCH ×7 (08:39→21:17)
[2021-06-24] MEDS: Levothyroxine 112 MCG Tab PO SCH (09:56)
[2021-06-24] MEDS: Gabapentin 400 MG Cap PO SCH (09:57)
[2021-06-24] MEDS: Clopidogrel 75 MG Tab PO SCH (09:58)
[2021-06-24] MEDS: Aspirin 81 MG Tab.EC PO SCH (09:58)
[2021-06-24] MEDS: Carvedilol 6.25 MG Tab PO SCH ×2 (09:58→21:07)
[2021-06-24] MEDS: Insulin Glarg,Human.Rec.Analog 100 Unit/ML SUBCUT SCH ×2 (10:16→21:08)
--- NOTE | 2021-06-24 13:09 | PCM.PN ---
- General Info Date of Service: 06/24/21 Admission Dx/Problem (Free Text): Admission Diagnosis/Problem Admission Diagnosis/Problem Congestive heart failure Functional Status: Reports: Pain Controlled, Tolerating Diet - Review of Systems General: Denies: Fever Pulmonary: Reports: Shortness of Breath (improved). Denies: Sputum, Wheezing Cardiovascular: Reports: Edema (improved). Denies: Chest Pain Gastrointestinal: Denies: Abdominal Pain Psychiatric: Reports: Anxiety - Patient Data Vitals - Most Recent: Last Vital Signs Temp 97.7 F 06/24/21 08:22 Pulse 84 06/24/21 09:58 Resp 20 06/24/21 08:22 BP 143/76 H 06/24/21 09:58 Pulse Ox 99 06/24/21 08:22 Weight - Most Recent: 233 lb 8 oz I&O - Last 24 Hours: Intake & Output 06/23/21 06/24/21 06/24/21 22:59 06:59 14:59 Intake Total 100 100 440 Output Total 0 1325 Balance 100 -1225 440 Lab Results Last 24 Hours: Laboratory Results - last 24 hr 06/23/21 06/23/21 06/23/21 Range/Units 16:13 16:13 16:45 WBC (5.0-10.0) 10^3/uL RBC (4.6-6.2) 10^6/uL Hgb (14.0-18.0) g/dL Hct (40.0-54.0) % MCV (80-100) fL MCH (27.0-34.0) pg MCHC (33.0-35.0) g/dL Plt Count (150-450) 10^3/uL Neut % (Auto) (42.2-75.2) % Lymph % (Auto) (20.5-50.1) % [place] % (Auto) (2-8) % Eos % (Auto) (1.0-3.0) % Baso % (Auto) (0.0-1.0) % Sodium 131 L (136-145) mmol/L Potassium 3.1 L (3.5-5.1) mmol/L Chloride 93 L (98-107) mmol/L Carbon Dioxide 32 (21-32) mmol/L Anion Gap 9.1 (7-13) mEq/L BUN 33 H (7-18) mg/dL Creatinine 1.13 (0.70-1.30) mg/dL Est Cr Clr Drug Dosing 80.12 mL/min Estimated GFR (MDRD) > 60 Glucose 190 H (70-99) mg/dL POC Glucose 194 H (70-99) mg/dL Calcium 8.1 L (8.5-10.1) mg/dL Troponin I High Sens 377 H* (<=76) pg/mL B-Natriuretic Peptide (0-100) pg/ml 06/23/21 06/24/21 06/24/21 Range/Units 20:32 05:45 05:45 WBC 4.2 L (5.0-10.0) 10^3/uL RBC 5.06 (4.6-6.2) 10^6/uL Hgb 11.3 L (14.0-18.0) g/dL Hct 36.2 L (40.0-54.0) % MCV 71.5 L (80-100) fL MCH 22.3 L (27.0-34.0) pg MCHC 31.2 L (33.0-35.0) g/dL Plt Count 230 (150-450) 10^3/uL Neut % (Auto) 59.4 (42.2-75.2) % Lymph % (Auto) 19.1 L (20.5-50.1) % [place] % (Auto) 12.5 H (2-8) % Eos % (Auto) 7.8 H (1.0-3.0) % Baso % (Auto) 1.2 H (0.0-1.0) % Sodium 135 L (136-145) mmol/L Potassium 4.2 (3.5-5.1) mmol/L Chloride 98 (98-107) mmol/L Carbon Dioxide 29 (21-32) mmol/L Anion Gap 12.2 (7-13) mEq/L BUN 35 H (7-18) mg/dL Creatinine 1.10 (0.70-1.30) mg/dL Est Cr Clr Drug Dosing 82.30 mL/min Estimated GFR (MDRD) > 60 Glucose 72 (70-99) mg/dL POC Glucose 132 H (70-99) mg/dL Calcium 8.7 (8.5-10.1) mg/dL Troponin I High Sens (<=76) pg/mL B-Natriuretic Peptide 886 H (0-100) pg/ml 06/24/21 06/24/21 Range/Units 08:03 12:15 WBC (5.0-10.0) 10^3/uL RBC (4.6-6.2) 10^6/uL Hgb (14.0-18.0) g/dL Hct (40.0-54.0) % MCV (80-100) fL MCH (27.0-34.0) pg MCHC (33.0-35.0) g/dL Plt Count (150-450) 10^3/uL Neut % (Auto) (42.2-75.2) % Lymph % (Auto) (20.5-50.1) % [place] % (Auto) (2-8) % Eos % (Auto) (1.0-3.0) % Baso % (Auto) (0.0-1.0) % Sodium (136-145) mmol/L Potassium (3.5-5.1) mmol/L Chloride (98-107) mmol/L Carbon Dioxide (21-32) mmol/L Anion Gap (7-13) mEq/L BUN (7-18) mg/dL Creatinine (0.70-1.30) mg/dL Est Cr Clr Drug Dosing mL/min Estimated GFR (MDRD) Glucose (70-99) mg/dL POC Glucose 85 176 H (70-99) mg/dL Calcium (8.5-10.1) mg/dL Troponin I High Sens (<=76) pg/mL B-Natriuretic Peptide (0-100) pg/ml Med Orders - Current: Current Medications Acetaminophen (Acetaminophen 325 Mg Tab) 650 mg PO Q4H PRN PRN Reason: Pain (Mild 1-3)/fever Aspirin (Aspirin 81 Mg Tab.Ec) 81 mg PO DAILY [facility] Last Admin: 06/24/21 09:58 Dose: 81 mg Documented by: Atorvastatin Calcium (Atorvastatin 20 Mg Tab) 40 mg PO BEDTIME [facility] Last Admin: 06/23/21 20:43 Dose: 40 mg Documented by: Carvedilol (Carvedilol 6.25 Mg Tab) 6.25 mg PO BID [facility] Last Admin: 06/24/21 09:58 Dose: 6.25 mg Documented by: Clopidogrel Bisulfate (Clopidogrel 75 Mg Tab) 75 mg PO DAILY [facility] Last Admin: 06/24/21 09:58 Dose: 75 mg Documented by: Dextrose/Water (50% Dextrose In Water 50 Ml Syringe) 25 ml IVPUSH ASDIRECTED [place] N PRN Reason: Hypoglycemia BS<70 Docusate Sodium (Docusate Sodium 100 Mg Cap) 100 mg PO BID PRN PRN Reason: Constipation Furosemide (Furosemide 20 Mg/2 Ml Vial) 20 mg IVPUSH Q8H [facility] Last Admin: 06/24/21 04:05 Dose: 20 mg Documented by: Gabapentin (Gabapentin 400 Mg Cap) 400 mg PO DAILY [facility] Last Admin: 06/24/21 09:57 Dose: 400 mg Documented by: Heparin Sodium (Porcine) (Heparin Sodium 5,000 Units/Ml Vial) 5,000 units SUBCUT Q8HR [facility] Last Admin: 06/24/21 05:16 Dose: 5,000 units Documented by: Insulin Glargine (Insulin Glarg,Human.Rec.Analog 100 Unit/Ml) 27 unit SUBCUT BID [facility] Last Admin: 06/24/21 10:16 Dose: 27 units Documented by: Insulin Human Lispro (Insulin Lispro 100 Units/Ml 3 Ml Vial) 0 unit SUBCUT WITHMEALSANDBED [facility]; Protocol Last Admin: 06/24/21 08:39 Dose: Not Given Documented by: Insulin Human Lispro (Insulin Lispro 100 Units/Ml 3 Ml Vial) 8 unit SUBCUT TIDMEALS [facility] Last Admin: 06/24/21 08:39 Dose: Not Given Documented by: Levothyroxine Sodium (Levothyroxine 112 Mcg Tab) 112 mcg PO DAILY [facility] Last Admin: 06/24/21 09:56 Dose: 112 mcg Documented by: Lorazepam (Lorazepam 0.5 Mg Tab) 1 mg PO Q6H PRN PRN Reason: Anxiety Last Admin: 06/24/21 05:21 Dose: 1 mg Documented by: Morphine Sulfate (Morphine 2 Mg/Ml Syringe) 2 mg IVPUSH Q2H PRN PRN Reason: Pain (severe 7-10) Omeprazole (Omeprazole 20 Mg Cap.Cr) 20 mg PO ACBREAKFAST [facility] Last Admin: 06/24/21 05:17 Dose: 20 mg Documented by: Ondansetron HCl (Ondansetron 4 Mg Tab.Dis) 4 mg PO Q6H PRN PRN Reason: nausea, able to take PO Last Admin: 06/24/21 05:17 Dose: 4 mg Documented by: Oxycodone HCl (Oxycodone 5 Mg Tab) 5 mg PO Q4H PRN PRN Reason: Pain (moderate 4-6) Potassium Chloride (Potassium Chloride 10 Meq Tab.Er) 20 meq PO BID [facility] Last Admin: 06/24/21 09:58 Dose: 20 meq Documented by: Sodium Chloride (Sodium Chloride 0.9% 10 Ml Syringe) 10 ml FLUSH ASDIRECTED PRN PRN Reason: Keep Vein Open Last Admin: 06/23/21 12:49 Dose: 10 ml Documented by: Temazepam (Temazepam 15 Mg Cap) 15 mg PO BEDTIME PRN PRN Reason: Sleep Discontinued Medications Furosemide (Furosemide 20 Mg/2 Ml Vial) 20 mg IVPUSH .Q8H [facility] Insulin Human Lispro (Insulin Lispro 100 Units/Ml 3 Ml Vial) 8 unit SUBCUT TID [facility] Last Admin: 06/23/21 12:48 Dose: 8 units Documented by: Lorazepam (Lorazepam 0.5 Mg Tab) 0.5 mg PO Q6H PRN PRN Reason: Anxiety Last Admin: 06/23/21 14:39 Dose: 0.5 mg Documented by: Lorazepam (Lorazepam 1 Mg Tab) 1 mg PO ONETIME ONE Stop: 06/23/21 16:37 Last Admin: 06/23/21 16:53 Dose: 1 mg Documented by: Potassium Chloride (Potassium Chloride 10 Meq Tab.Er) 40 meq PO ONETIME ONE Stop: 06/23/21 10:11 Last Admin: 06/23/21 10:27 Dose: 40 meq Documented by: Potassium Chloride (Potassium Chloride 10 Meq Tab.Er) 40 meq PO Q6H [facility] Stop: 06/24/21 00:01 Last Admin: 06/23/21 12:42 Dose: Not Given Documented by: Potassium Chloride (Potassium Chloride 10 Meq Tab.Er) 40 meq PO Q6H [facility] Stop: 06/24/21 04:01 Last Admin: 06/24/21 04:06 Dose: 40 meq Documented by: - Exam Quality Assessment: Supplemental Oxygen General: Alert, Oriented Neck: Supple Lungs: Clear to Auscultation, Normal Respiratory Effort Cardiovascular: Regular Rate, Regular Rhythm GI/Abdominal Exam: Normal Bowel Sounds, Soft, Non-Tender Extremities: Pedal Edema (trace to 1+) Skin: Warm, Dry Neurological: No New Focal Deficit Psy/Mental Status: Alert, Normal Affect, Normal Mood - Patient Data Lab Results Last 24 hrs: Laboratory Results - last 24 hr 06/23/21 06/23/21 06/23/21 Range/Units 16:13 16:13 16:45 WBC (5.0-10.0) 10^3/uL RBC (4.6-6.2) 10^6/uL Hgb (14.0-18.0) g/dL Hct (40.0-54.0) % MCV (80-100) fL MCH (27.0-34.0) pg MCHC (33.0-35.0) g/dL Plt Count (150-450) 10^3/uL Neut % (Auto) (42.2-75.2) % Lymph % (Auto) (20.5-50.1) % [place] % (Auto) (2-8) % Eos % (Auto) (1.0-3.0) % Baso % (Auto) (0.0-1.0) % Sodium 131 L (136-145) mmol/L Potassium 3.1 L (3.5-5.1) mmol/L Chloride 93 L (98-107) mmol/L Carbon Dioxide 32 (21-32) mmol/L Anion Gap 9.1 (7-13) mEq/L BUN 33 H (7-18) mg/dL Creatinine 1.13 (0.70-1.30) mg/dL Est Cr Clr Drug Dosing 80.12 mL/min Estimated GFR (MDRD) > 60 Glucose 190 H (70-99) mg/dL POC Glucose 194 H (70-99) mg/dL Calcium 8.1 L (8.5-10.1) mg/dL Troponin I High Sens 377 H* (<=76) pg/mL B-Natriuretic Peptide (0-100) pg/ml 06/23/21 06/24/21 06/24/21 Range/Units 20:32 05:45 05:45 WBC 4.2 L (5.0-10.0) 10^3/uL RBC 5.06 (4.6-6.2) 10^6/uL Hgb 11.3 L (14.0-18.0) g/dL Hct 36.2 L (40.0-54.0) % MCV 71.5 L (80-100) fL MCH 22.3 L (27.0-34.0) pg MCHC 31.2 L (33.0-35.0) g/dL Plt Count 230 (150-450) 10^3/uL Neut % (Auto) 59.4 (42.2-75.2) % Lymph % (Auto) 19.1 L (20.5-50.1) % [place] % (Auto) 12.5 H (2-8) % Eos % (Auto) 7.8 H (1.0-3.0) % Baso % (Auto) 1.2 H (0.0-1.0) % Sodium 135 L (136-145) mmol/L Potassium 4.2 (3.5-5.1) mmol/L Chloride 98 (98-107) mmol/L Carbon Dioxide 29 (21-32) mmol/L Anion Gap 12.2 (7-13) mEq/L BUN 35 H (7-18) mg/dL Creatinine 1.10 (0.70-1.30) mg/dL Est Cr Clr Drug Dosing 82.30 mL/min Estimated GFR (MDRD) > 60 Glucose 72 (70-99) mg/dL POC Glucose 132 H (70-99) mg/dL Calcium 8.7 (8.5-10.1) mg/dL Troponin I High Sens (<=76) pg/mL B-Natriuretic Peptide 886 H (0-100) pg/ml 06/24/21 06/24/21 Range/Units 08:03 12:15 WBC (5.0-10.0) 10^3/uL RBC (4.6-6.2) 10^6/uL Hgb (14.0-18.0) g/dL Hct (40.0-54.0) % MCV (80-100) fL MCH (27.0-34.0) pg MCHC (33.0-35.0) g/dL Plt Count (150-450) 10^3/uL Neut % (Auto) (42.2-75.2) % Lymph % (Auto) (20.5-50.1) % [place] % (Auto) (2-8) % Eos % (Auto) (1.0-3.0) % Baso % (Auto) (0.0-1.0) % Sodium (136-145) mmol/L Potassium (3.5-5.1) mmol/L Chloride (98-107) mmol/L Carbon Dioxide (21-32) mmol/L Anion Gap (7-13) mEq/L BUN (7-18) mg/dL Creatinine (0.70-1.30) mg/dL Est Cr Clr Drug Dosing mL/min Estimated GFR (MDRD) Glucose (70-99) mg/dL POC Glucose 85 176 H (70-99) mg/dL Calcium (8.5-10.1) mg/dL Troponin I High Sens (<=76) pg/mL B-Natriuretic Peptide (0-100) pg/ml Result Diagrams: 06/24/21 05:45 06/24/21 05:45 Sepsis Event Note - Evaluation Sepsis Screening Result: No Definite Risk - Focused Exam Vital Signs: Vital Signs Temp Pulse Pulse Resp BP BP Pulse Ox 06/24/21 09:58 84 143/76 H 06/24/21 08:22 97.7 F 84 20 143/76 H 99 06/24/21 04:00 97.2 F 85 20 118/79 100 - Problem List & Annotations (1) Acute exacerbation of CHF (congestive heart failure) SNOMED Code(s): 677832560, 66339983424174 Code(s): I50.9 - HEART FAILURE, UNSPECIFIED Status: Acute Current Visit: No Qualifiers: Heart failure type: unspecified Qualified Code(s): I50.9 - Heart failure, unspecified (2) Anxiety about health SNOMED Code(s): 594696607 Code(s): F41.8 - OTHER SPECIFIED ANXIETY DISORDERS Status: Acute Current Visit: No (3) CHF (congestive heart failure) SNOMED Code(s): 55614929 Code(s): I50.9 - HEART FAILURE, UNSPECIFIED Status: Acute Current Visit: No Qualifiers: Heart failure type: systolic Heart failure chronicity: chronic Qualified Code(s): I50.22 - Chronic systolic (congestive) heart failure (4) Diabetes SNOMED Code(s): 71277570 Code(s): E11.9 - TYPE 2 DIABETES MELLITUS WITHOUT COMPLICATIONS Status: Acute Current Visit: No Qualifiers: Diabetes mellitus type: type 2 Diabetes mellitus jail insulin use: with jail use Diabetes mellitus complication status: without complication Qualified Code(s): E11.9 - Type 2 diabetes mellitus without complications; Z79.4 - termite control servicer (current) use of insulin (5) Hx of right BKA SNOMED Code(s): 280180844796036, 244332048386167 Code(s): Z89.511 - ACQUIRED ABSENCE OF RIGHT LEG BELOW KNEE Status: Acute Current Visit: No (6) Hypokalemia SNOMED Code(s): 80537655 Code(s): E87.6 - HYPOKALEMIA Status: Acute Current Visit: No (7) Hyponatremia SNOMED Code(s): 87235042 Code(s): E87.1 - HYPO-OSMOLALITY AND HYPONATREMIA Status: Acute Current Visit: No (8) NSTEMI (non-ST elevated myocardial infarction) SNOMED Code(s): 17147227 Code(s): I21.4 - NON-ST ELEVATION (NSTEMI) MYOCARDIAL INFARCTION Status: Acute Current Visit: No (9) Shortness of breath SNOMED Code(s): 809925567 Code(s): R06.02 - SHORTNESS OF BREATH Status: Acute Current Visit: No - Problem List Review Problem List Initiated/Reviewed/Updated: Yes - My Orders Last 24 Hours: My Active Orders 06/23/21 12:30 Furosemide [Lasix] 20 mg IVPUSH Q8H 06/23/21 12:38 Up With Assistance [RC] Acetaminophen [TylenoL] 650 mg PO Q4H PRN Docusate Sodium [Colace] 100 mg PO BID PRN Morphine 2 mg IVPUSH Q2H PRN Ondansetron [Zofran ODT] 4 mg PO Q6H PRN Temazepam [Restoril] 15 mg PO BEDTIME PRN oxyCODONE 5 mg PO Q4H PRN Saline Lock Insert [OM.PC] Routine 06/23/21 12:40 Antiembolic Devices [RC] Antiembolic Hose [OM.PC] Per Unit Routine 06/23/21 13:00 Clopidogrel [Plavix] 75 mg PO DAILY 06/23/21 14:00 Heparin Sodium 5,000 units SUBCUT Q8HR 06/23/21 16:37 LORazepam [Ativan] 1 mg PO Q6H PRN 06/23/21 17:00 Insulin Lispro [HumaLOG] 8 unit SUBCUT TIDMEALS 06/23/21 Dinner Consistent Carbohydrate Diet [DIET] 06/23/21 18:00 Insulin Lispro [HumaLOG] See Protocol SUBCUT WITHMEALSANDBED 06/23/21 21:00 Insulin Glarg,Human.Rec.Analog [LantUS] 27 unit SUBCUT BID atorvaSTATin [Lipitor] 40 mg PO BEDTIME carvediloL [Coreg] 6.25 mg PO BID 06/24/21 06:00 Omeprazole 20 mg PO ACBREAKFAST 06/24/21 Breakfast Fluid Restriction [DIET] 06/24/21 09:00 Aspirin [Halfprin] 81 mg PO DAILY Gabapentin [Neurontin] 400 mg PO DAILY Levothyroxine 112 mcg PO DAILY Potassium Chloride [Klor-Con 10] 20 meq PO BID 06/25/21 05:11 B-TYPE NATRIURETIC PEPTIDE,BNP [CHEM] AM BASIC METABOLIC PANEL,BMP [CHEM] AM CBC WITH AUTO DIFF [HEME] AM 06/26/21 05:11 B-TYPE NATRIURETIC PEPTIDE,BNP [CHEM] AM BASIC METABOLIC PANEL,BMP [CHEM] AM CBC WITH AUTO DIFF [HEME] AM 06/27/21 05:11 B-TYPE NATRIURETIC PEPTIDE,BNP [CHEM] AM BASIC METABOLIC PANEL,BMP [CHEM] AM CBC WITH AUTO DIFF [HEME] AM 06/28/21 05:11 BASIC METABOLIC PANEL,BMP [CHEM] AM CBC WITH AUTO DIFF [HEME] AM 06/29/21 05:11 BASIC METABOLIC PANEL,BMP [CHEM] AM CBC WITH AUTO DIFF [HEME] AM - Plan Plan:: Chf, acute on chronic likely systolic given h/o cad continue to treat with IV Lasix Hold PO Torsemide and metolazone for now Check BNP in AM Follow elytes Acute non st mi With elevated troponins Follow on tele stable troponin Plan for angiogram on fri with improved fluid status Treat with asa, plavix, coreg, lipitor Hyponatremia Hypervolemic improved Follow with diuresis Fluid restriction Hypokalemia Will give PO supplement Follow with diuretics DM Hold metformin Treat with levemir, humolog Follow BS qac+HS Supplemental insulin as needed Hypothyroidism cont levothyroxine dvt prophylaxis with sq heparin
[2021-06-24] MEDS: atorvaSTATin 20 MG Tab PO SCH (21:06)
[2021-06-24] MEDS: Temazepam 15 MG Cap PO PRN (21:12)
[2021-06-25] MEDS: Furosemide 20 MG/2 ML VIAL IVPUSH SCH ×3 (05:13→20:21)
[2021-06-25] MEDS: Omeprazole 20 MG Cap.CR PO SCH (05:13)
[2021-06-25] MEDS: Heparin Sodium 5,000 Units/ML Vial SUBCUT SCH ×3 (05:13→23:01)
[2021-06-25 06:43] LABS: ANION GAP 13.9 mEq/L (7-13)
[2021-06-25] MEDS: Gabapentin 400 MG Cap PO SCH (09:44)
[2021-06-25] MEDS: Aspirin 81 MG Tab.EC PO SCH (09:45)
[2021-06-25] MEDS: Clopidogrel 75 MG Tab PO SCH (09:45)
[2021-06-25] MEDS: Carvedilol 6.25 MG Tab PO SCH ×2 (09:45→20:22)
[2021-06-25] MEDS: Levothyroxine 112 MCG Tab PO SCH (09:45)
[2021-06-25] MEDS: Potassium Chloride 10 MEQ Tab.ER PO SCH ×2 (09:45→20:22)
[2021-06-25] MEDS: Insulin Lispro 100 Units/ML 3 ML Vial SUBCUT SCH ×7 (09:59→20:29)
[2021-06-25] MEDS: Insulin Glarg,Human.Rec.Analog 100 Unit/ML SUBCUT SCH ×2 (10:01→20:28)
[2021-06-25] MEDS ORDERED: Iopamidol 755 Mg/ML 100 ML Bottle IVPUSH ONE (11:59)
--- NOTE | 2021-06-25 13:41 | CT ---
EXAMINATION: Chest w Cont SEX: Male AGE: 56 years CLINICAL HISTORY: 56-year-old hypertensive 234 pound diabetic male with SHORTNESS OF BREATH. (SOB) Serum D-dimer 1370. TECHNIQUE: Volume acquisition of data from the chest obtained during the intravenous infusion 80 cc nonionic Isovue 370 contrast (PE study) at 4.5 cc/s via injector while patient was lying supine on the Siemens multislice scanner [place], [place]. All data archived in the PACS system for storage, reformatting axial/sagittal/coronal planes and study. Interpretation: Abnormal. 1. Enlarged heart with large pericardial effusion. Cardiac pacemaker lead intact. External monitor technician leads. 2. Asymmetric large dependent subpulmonic pleural effusion, left base with underlying lower lobe atelectasis. 3. No sign of intraluminal filling defect or thrombus identified in the pulmonary artery circulation. 4. No abnormal peripheral areas of oligemia or pleural wedge shaped infarcts. 5. No pulmonary vascular congestion, cephalization of flow, or alveolar edema. 6. No suspicious lung mass lesion or hilar/mediastinal lymphadenopathy. Normal midline tracheal bronchial airway. 7. Cholelithiasis. Conclusion: Abnormal heart with large pericardial and asymmetric dependent left pleural effusions. Cholelithiasis. No sign of pulmonary embolism/infarct. No sign of lung malignancy, alveolar edema or lobar pneumonia.
--- NOTE | 2021-06-25 14:38 | PCM.PN ---
- General Info Date of Service: 06/25/21 Admission Dx/Problem (Free Text): Admission Diagnosis/Problem Admission Diagnosis/Problem Congestive heart failure Functional Status: Reports: Pain Controlled, Tolerating Diet, Ambulating, Urinating - Review of Systems General: Reports: Weakness, Malaise Pulmonary: Reports: Shortness of Breath (with activity) Cardiovascular: Reports: Chest Pain. Denies: Dyspnea on Exertion Gastrointestinal: Denies: Abdominal Pain Genitourinary: Denies: Dysuria Neurological: Denies: Confusion Psychiatric: Reports: Anxiety - Patient Data Vitals - Most Recent: Last Vital Signs Temp 98.2 F 06/25/21 12:00 Pulse 83 06/25/21 12:00 Resp 20 06/25/21 12:00 BP 121/78 06/25/21 12:00 Pulse Ox 96 06/25/21 12:00 Weight - Most Recent: 234 lb 6.4 oz I&O - Last 24 Hours: Intake & Output 06/24/21 06/25/21 06/25/21 22:59 06:59 14:59 Intake Total 440 Output Total 0 300 380 Balance 440 -300 -380 Lab Results Last 24 Hours: Laboratory Results - last 24 hr 06/24/21 06/24/21 06/25/21 Range/Units 17:00 20:51 06:00 WBC 5.4 (5.0-10.0) 10^3/uL RBC 4.76 (4.6-6.2) 10^6/uL Hgb 10.7 L (14.0-18.0) g/dL Hct 35.0 L (40.0-54.0) % MCV 73.5 L (80-100) fL MCH 22.5 L (27.0-34.0) pg MCHC 30.6 L (33.0-35.0) g/dL Plt Count 234 (150-450) 10^3/uL Neut % (Auto) 64.6 (42.2-75.2) % Lymph % (Auto) 15.7 L (20.5-50.1) % [place] % (Auto) 11.6 H (2-8) % Eos % (Auto) 7.0 H (1.0-3.0) % Baso % (Auto) 1.1 H (0.0-1.0) % D-Dimer, Quantitative (0-400) ng/mL Sodium (136-145) mmol/L Potassium (3.5-5.1) mmol/L Chloride (98-107) mmol/L Carbon Dioxide (21-32) mmol/L Anion Gap (7-13) mEq/L BUN (7-18) mg/dL Creatinine (0.70-1.30) mg/dL Est Cr Clr Drug Dosing mL/min Estimated GFR (MDRD) Glucose (70-99) mg/dL POC Glucose 139 H 138 H (70-99) mg/dL Calcium (8.5-10.1) mg/dL B-Natriuretic Peptide (0-100) pg/ml 06/25/21 06/25/21 06/25/21 Range/Units 06:00 06:00 07:57 WBC (5.0-10.0) 10^3/uL RBC (4.6-6.2) 10^6/uL Hgb (14.0-18.0) g/dL Hct (40.0-54.0) % MCV (80-100) fL MCH (27.0-34.0) pg MCHC (33.0-35.0) g/dL Plt Count (150-450) 10^3/uL Neut % (Auto) (42.2-75.2) % Lymph % (Auto) (20.5-50.1) % [place] % (Auto) (2-8) % Eos % (Auto) (1.0-3.0) % Baso % (Auto) (0.0-1.0) % D-Dimer, Quantitative 1370 H (0-400) ng/mL Sodium 142 (136-145) mmol/L Potassium 3.9 (3.5-5.1) mmol/L Chloride 103 (98-107) mmol/L Carbon Dioxide 29 (21-32) mmol/L Anion Gap 13.9 H (7-13) mEq/L BUN 42 H (7-18) mg/dL Creatinine 1.39 H (0.70-1.30) mg/dL Est Cr Clr Drug Dosing 65.13 mL/min Estimated GFR (MDRD) 53 Glucose 204 H (70-99) mg/dL POC Glucose 205 H (70-99) mg/dL Calcium 8.6 (8.5-10.1) mg/dL B-Natriuretic Peptide 920 H (0-100) pg/ml 06/25/21 Range/Units 11:53 WBC (5.0-10.0) 10^3/uL RBC (4.6-6.2) 10^6/uL Hgb (14.0-18.0) g/dL Hct (40.0-54.0) % MCV (80-100) fL MCH (27.0-34.0) pg MCHC (33.0-35.0) g/dL Plt Count (150-450) 10^3/uL Neut % (Auto) (42.2-75.2) % Lymph % (Auto) (20.5-50.1) % [place] % (Auto) (2-8) % Eos % (Auto) (1.0-3.0) % Baso % (Auto) (0.0-1.0) % D-Dimer, Quantitative (0-400) ng/mL Sodium (136-145) mmol/L Potassium (3.5-5.1) mmol/L Chloride (98-107) mmol/L Carbon Dioxide (21-32) mmol/L Anion Gap (7-13) mEq/L BUN (7-18) mg/dL Creatinine (0.70-1.30) mg/dL Est Cr Clr Drug Dosing mL/min Estimated GFR (MDRD) Glucose (70-99) mg/dL POC Glucose 202 H (70-99) mg/dL Calcium (8.5-10.1) mg/dL B-Natriuretic Peptide (0-100) pg/ml Med Orders - Current: Current Medications Acetaminophen (Acetaminophen 325 Mg Tab) 650 mg PO Q4H PRN PRN Reason: Pain (Mild 1-3)/fever Aspirin (Aspirin 81 Mg Tab.Ec) 81 mg PO DAILY [facility] Last Admin: 06/25/21 09:45 Dose: 81 mg Documented by: Atorvastatin Calcium (Atorvastatin 20 Mg Tab) 40 mg PO BEDTIME [facility]ESUS ALBERTO Last Admin: 06/24/21 21:06 Dose: 40 mg Documented by: Carvedilol (Carvedilol 6.25 Mg Tab) 6.25 mg PO BID [facility] Last Admin: 06/25/21 09:45 Dose: 6.25 mg Documented by: Clopidogrel Bisulfate (Clopidogrel 75 Mg Tab) 75 mg PO DAILY [facility] Last Admin: 12/20/21 09:45 Dose: 75 mg Documented by: Dextrose/Water (50% Dextrose In Water 50 Ml Syringe) 25 ml IVPUSH ASDIRECTED PRN PRN Reason: Hypoglycemia BS<70 Docusate Sodium (Docusate Sodium 100 Mg Cap) 100 mg PO BID PRN PRN Reason: Constipation Furosemide (Furosemide 20 Mg/2 Ml Vial) 20 mg IVPUSH Q8H [facility] Last Admin: 06/25/21 13:57 Dose: 20 mg Documented by: Gabapentin (Gabapentin 400 Mg Cap) 400 mg PO DAILY [facility] Last Admin: 06/25/21 09:44 Dose: 400 mg Documented by: Heparin Sodium (Porcine) (Heparin Sodium 5,000 Units/Ml Vial) 5,000 units SUBCUT Q8HR [facility] Last Admin: 06/25/21 14:14 Dose: 5,000 units Documented by: Insulin Glargine (Insulin Glarg,Human.Rec.Analog 100 Unit/Ml) 27 unit SUBCUT BID [facility] Last Admin: 06/25/21 10:01 Dose: 27 units Documented by: Insulin Human Lispro (Insulin Lispro 100 Units/Ml 3 Ml Vial) 0 unit SUBCUT WITHMEALSANDBED [facility]; Protocol Last Admin: 06/25/21 13:55 Dose: 4 units Documented by: Insulin Human Lispro (Insulin Lispro 100 Units/Ml 3 Ml Vial) 8 unit SUBCUT TIDMEALS [facility] Last Admin: 06/25/21 13:56 Dose: 8 unit Documented by: Levothyroxine Sodium (Levothyroxine 112 Mcg Tab) 112 mcg PO DAILY [facility] Last Admin: 06/25/21 09:45 Dose: 112 mcg Documented by: Lorazepam (Lorazepam 0.5 Mg Tab) 1 mg PO Q6H PRN PRN Reason: Anxiety Last Admin: 06/24/21 21:12 Dose: 1 mg Documented by: Morphine Sulfate (Morphine 2 Mg/Ml Syringe) 2 mg IVPUSH Q2H PRN PRN Reason: Pain (severe 7-10) Omeprazole (Omeprazole 20 Mg Cap.Cr) 20 mg PO ACBREAKFAST [facility] Last Admin: 06/25/21 05:13 Dose: 20 mg Documented by: Ondansetron HCl (Ondansetron 4 Mg Tab.Dis) 4 mg PO Q6H PRN PRN Reason: nausea, able to take PO Last Admin: 06/24/21 05:17 Dose: 4 mg Documented by: Oxycodone HCl (Oxycodone 5 Mg Tab) 5 mg PO Q4H PRN PRN Reason: Pain (moderate 4-6) Potassium Chloride (Potassium Chloride 10 Meq Tab.Er) 20 meq PO BID [facility] Last Admin: 06/25/21 09:45 Dose: 20 meq Documented by: Sodium Chloride (Sodium Chloride 0.9% 10 Ml Syringe) 10 ml FLUSH ASDIRECTED PRN PRN Reason: Keep Vein Open Last Admin: 06/23/21 12:49 Dose: 10 ml Documented by: Temazepam (Temazepam 15 Mg Cap) 15 mg PO BEDTIME PRN PRN Reason: Sleep Last Admin: 06/24/21 21:12 Dose: 15 mg Documented by: Discontinued Medications Furosemide (Furosemide 20 Mg/2 Ml Vial) 20 mg IVPUSH .Q8H [facility] Insulin Human Lispro (Insulin Lispro 100 Units/Ml 3 Ml Vial) 8 unit SUBCUT TID [facility] Last Admin: 06/23/21 12:48 Dose: 8 units Documented by: Iopamidol (Iopamidol 755 Mg/Ml 100 Ml Bottle) 100 ml IVPUSH ONETIME ONE Stop: 06/25/21 12:00 Last Admin: 06/25/21 12:26 Dose: 80 ml Documented by: Lorazepam (Lorazepam 0.5 Mg Tab) 0.5 mg PO Q6H PRN PRN Reason: Anxiety Last Admin: 06/23/21 14:39 Dose: 0.5 mg Documented by: Lorazepam (Lorazepam 1 Mg Tab) 1 mg PO ONETIME ONE Stop: 06/23/21 16:37 Last Admin: 06/23/21 16:53 Dose: 1 mg Documented by: Potassium Chloride (Potassium Chloride 10 Meq Tab.Er) 40 meq PO ONETIME ONE Stop: 06/23/21 10:11 Last Admin: 06/23/21 10:27 Dose: 40 meq Documented by: Potassium Chloride (Potassium Chloride 10 Meq Tab.Er) 40 meq PO Q6H [facility] Stop: 06/24/21 00:01 Last Admin: 06/23/21 12:42 Dose: Not Given Documented by: Potassium Chloride (Potassium Chloride 10 Meq Tab.Er) 40 meq PO Q6H [facility] Stop: 06/24/21 04:01 Last Admin: 06/24/21 04:06 Dose: 40 meq Documented by: - Exam Quality Assessment: Supplemental Oxygen General: Alert, Oriented Lungs: Clear to Auscultation, Normal Respiratory Effort Cardiovascular: Regular Rate, Regular Rhythm GI/Abdominal Exam: Normal Bowel Sounds, Soft, Non-Tender Extremities: Pedal Edema - Patient Data Lab Results Last 24 hrs: Laboratory Results - last 24 hr 06/24/21 06/24/21 06/25/21 Range/Units 17:00 20:51 06:00 WBC 5.4 (5.0-10.0) 10^3/uL RBC 4.76 (4.6-6.2) 10^6/uL Hgb 10.7 L (14.0-18.0) g/dL Hct 35.0 L (40.0-54.0) % MCV 73.5 L (80-100) fL MCH 22.5 L (27.0-34.0) pg MCHC 30.6 L (33.0-35.0) g/dL Plt Count 234 (150-450) 10^3/uL Neut % (Auto) 64.6 (42.2-75.2) % Lymph % (Auto) 15.7 L (20.5-50.1) % [place] % (Auto) 11.6 H (2-8) % Eos % (Auto) 7.0 H (1.0-3.0) % Baso % (Auto) 1.1 H (0.0-1.0) % D-Dimer, Quantitative (0-400) ng/mL Sodium (136-145) mmol/L Potassium (3.5-5.1) mmol/L Chloride (98-107) mmol/L Carbon Dioxide (21-32) mmol/L Anion Gap (7-13) mEq/L BUN (7-18) mg/dL Creatinine (0.70-1.30) mg/dL Est Cr Clr Drug Dosing mL/min Estimated GFR (MDRD) Glucose (70-99) mg/dL POC Glucose 139 H 138 H (70-99) mg/dL Calcium (8.5-10.1) mg/dL B-Natriuretic Peptide (0-100) pg/ml 06/25/21 06/25/21 06/25/21 Range/Units 06:00 06:00 07:57 WBC (5.0-10.0) 10^3/uL RBC (4.6-6.2) 10^6/uL Hgb (14.0-18.0) g/dL Hct (40.0-54.0) % MCV (80-100) fL MCH (27.0-34.0) pg MCHC (33.0-35.0) g/dL Plt Count (150-450) 10^3/uL Neut % (Auto) (42.2-75.2) % Lymph % (Auto) (20.5-50.1) % [place] % (Auto) (2-8) % Eos % (Auto) (1.0-3.0) % Baso % (Auto) (0.0-1.0) % D-Dimer, Quantitative 1370 H (0-400) ng/mL Sodium 142 (136-145) mmol/L Potassium 3.9 (3.5-5.1) mmol/L Chloride 103 (98-107) mmol/L Carbon Dioxide 29 (21-32) mmol/L Anion Gap 13.9 H (7-13) mEq/L BUN 42 H (7-18) mg/dL Creatinine 1.39 H (0.70-1.30) mg/dL Est Cr Clr Drug Dosing 65.13 mL/min Estimated GFR (MDRD) 53 Glucose 204 H (70-99) mg/dL POC Glucose 205 H (70-99) mg/dL Calcium 8.6 (8.5-10.1) mg/dL B-Natriuretic Peptide 920 H (0-100) pg/ml 12/20/21 Range/Units 11:53 WBC (5.0-10.0) 10^3/uL RBC (4.6-6.2) 10^6/uL Hgb (14.0-18.0) g/dL Hct (40.0-54.0) % MCV (80-100) fL MCH (27.0-34.0) pg MCHC (33.0-35.0) g/dL Plt Count (150-450) 10^3/uL Neut % (Auto) (42.2-75.2) % Lymph % (Auto) (20.5-50.1) % [place] % (Auto) (2-8) % Eos % (Auto) (1.0-3.0) % Baso % (Auto) (0.0-1.0) % D-Dimer, Quantitative (0-400) ng/mL Sodium (136-145) mmol/L Potassium (3.5-5.1) mmol/L Chloride (98-107) mmol/L Carbon Dioxide (21-32) mmol/L Anion Gap (7-13) mEq/L BUN (7-18) mg/dL Creatinine (0.70-1.30) mg/dL Est Cr Clr Drug Dosing mL/min Estimated GFR (MDRD) Glucose (70-99) mg/dL POC Glucose 202 H (70-99) mg/dL Calcium (8.5-10.1) mg/dL B-Natriuretic Peptide (0-100) pg/ml Result Diagrams: 06/25/21 06:00 06/25/21 06:00 Sepsis Event Note - Evaluation Sepsis Screening Result: No Definite Risk - Focused Exam Vital Signs: Vital Signs Temp Pulse Pulse Resp BP BP BP 06/25/21 12:00 98.2 F 83 20 121/78 06/25/21 09:45 85 123/80 06/25/21 08:27 98.1 F 85 20 123/80 06/25/21 04:00 97.9 F 83 18 110/79 Pulse Ox 06/25/21 12:00 96 06/25/21 09:45 06/25/21 08:27 100 06/25/21 04:00 97 - Problem List & Annotations (1) Acute exacerbation of CHF (congestive heart failure) SNOMED Code(s): 801216044, 98734070286187 Code(s): I50.9 - HEART FAILURE, UNSPECIFIED Status: Acute Current Visit: No Qualifiers: Heart failure type: unspecified Qualified Code(s): I50.9 - Heart failure, unspecified (2) Anxiety about health SNOMED Code(s): 101352659 Code(s): F41.8 - OTHER SPECIFIED ANXIETY DISORDERS Status: Acute Current Visit: No (3) CHF (congestive heart failure) SNOMED Code(s): 41842342 Code(s): I50.9 - HEART FAILURE, UNSPECIFIED Status: Acute Current Visit: No Qualifiers: Heart failure type: systolic Heart failure chronicity: chronic Qualified Code(s): I50.22 - Chronic systolic (congestive) heart failure (4) Diabetes SNOMED Code(s): 92972582 Code(s): E11.9 - TYPE 2 DIABETES MELLITUS WITHOUT COMPLICATIONS Status: Acute Current Visit: No Qualifiers: Diabetes mellitus type: type 2 Diabetes mellitus buttermaker insulin use: with buttermaker use Diabetes mellitus complication status: without complication Qualified Code(s): E11.9 - Type 2 diabetes mellitus without complications; Z79.4 - alf (current) use of insulin (5) Hx of right BKA SNOMED Code(s): 508291845011913, 594341048854688 Code(s): Z89.511 - ACQUIRED ABSENCE OF RIGHT LEG BELOW KNEE Status: Acute Current Visit: No (6) Hypokalemia SNOMED Code(s): 86464844 Code(s): E87.6 - HYPOKALEMIA Status: Acute Current Visit: No (7) Hyponatremia SNOMED Code(s): 21200376 Code(s): E87.1 - HYPO-OSMOLALITY AND HYPONATREMIA Status: Acute Current Visit: No (8) NSTEMI (non-ST elevated myocardial infarction) SNOMED Code(s): 31667494 Code(s): I21.4 - NON-ST ELEVATION (NSTEMI) MYOCARDIAL INFARCTION Status: Acute Current Visit: No (9) Shortness of breath SNOMED Code(s): 306073256 Code(s): R06.02 - SHORTNESS OF BREATH Status: Acute Current Visit: No - Problem List Review Problem List Initiated/Reviewed/Updated: Yes - My Orders Last 24 Hours: My Active Orders 06/25/21 09:27 6 Minute Walk Test [OM.PC] Routine 06/26/21 05:11 B-TYPE NATRIURETIC PEPTIDE,BNP [CHEM] AM BASIC METABOLIC PANEL,BMP [CHEM] AM CBC WITH AUTO DIFF [HEME] AM 06/27/21 05:11 B-TYPE NATRIURETIC PEPTIDE,BNP [CHEM] AM BASIC METABOLIC PANEL,BMP [CHEM] AM CBC WITH AUTO DIFF [HEME] AM 06/28/21 05:11 BASIC METABOLIC PANEL,BMP [CHEM] AM CBC WITH AUTO DIFF [HEME] AM 06/29/21 05:11 BASIC METABOLIC PANEL,BMP [CHEM] AM CBC WITH AUTO DIFF [HEME] AM - Plan Plan:: Chf, acute on chronic likely systolic given h/o cad continue to treat with IV Lasix Hold PO Torsemide and metolazone for now Check BNP in AM Follow elytes pleural effusion, pericardial effusion echo not available no apparent hemodynamic compromise will cont diuresis plan for cardiology visit on Friday Acute non st mi With elevated troponins Follow on tele stable troponin Plan for angiogram on Friday with improved fluid status Treat with asa, plavix, coreg, lipitor Hyponatremia Hypervolemic improved Follow with diuresis Fluid restriction Hypokalemia replaced Follow with diuretics DM Hold metformin Treat with levemir, humolog Follow BS qac+HS Supplemental insulin as needed Hypothyroidism cont levothyroxine dvt prophylaxis with sq heparin
[2021-06-25] MEDS: LORazepam 0.5 MG Tab PO PRN (17:21)
[2021-06-25] MEDS: atorvaSTATin 20 MG Tab PO SCH (20:22)
[2021-06-25] MEDS: Temazepam 15 MG Cap PO PRN (20:22)
[2021-06-26] MEDS: LORazepam 0.5 MG Tab PO PRN ×2 (01:01→20:22)
[2021-06-26] MEDS: Ondansetron 4 MG Tab.DIS PO PRN (02:54)
[2021-06-26] MEDS: Furosemide 20 MG/2 ML VIAL IVPUSH SCH ×3 (03:30→17:13)
[2021-06-26] MEDS ORDERED: LORazepam 2 MG/ML SDV IVPUSH ONE (05:26)
[2021-06-26] MEDS: Omeprazole 20 MG Cap.CR PO SCH (05:40)
[2021-06-26] MEDS: Heparin Sodium 5,000 Units/ML Vial SUBCUT SCH ×3 (05:40→21:41)
[2021-06-26 06:15] LABS: ANION GAP 13.4 mEq/L (7-13)
--- NOTE | 2021-06-26 09:33 | PCM.PN ---
- General Info Date of Service: 06/26/21 Admission Dx/Problem (Free Text): Admission Diagnosis/Problem Admission Diagnosis/Problem Congestive heart failure Subjective Update: wanted to drink more moderate to severe anxiety last night, associated with restlessness, could not sleep no cp, continued leg swelling has +5 pounds weight Functional Status: Reports: Tolerating Diet - Review of Systems General: Denies: Fever, Weakness Pulmonary: Denies: Shortness of Breath Cardiovascular: Reports: Edema. Denies: Chest Pain Gastrointestinal: Denies: Abdominal Pain Neurological: Denies: Confusion - Patient Data Vitals - Most Recent: Last Vital Signs Temp 97.5 F 06/26/21 07:55 Pulse 101 H 06/26/21 07:55 Resp 20 06/26/21 07:55 BP 129/84 06/26/21 07:55 Pulse Ox 99 06/26/21 07:55 Weight - Most Recent: 239 lb I&O - Last 24 Hours: Intake & Output 06/25/21 06/26/21 06/26/21 22:59 06:59 14:59 Intake Total 830 690 Output Total 1250 Balance 830 -560 Lab Results Last 24 Hours: Laboratory Results - last 24 hr 06/25/21 06/25/21 06/25/21 Range/Units 11:53 16:23 19:22 WBC (5.0-10.0) 10^3/uL RBC (4.6-6.2) 10^6/uL Hgb (14.0-18.0) g/dL Hct (40.0-54.0) % MCV (80-100) fL MCH (27.0-34.0) pg MCHC (33.0-35.0) g/dL Plt Count (150-450) 10^3/uL Neut % (Auto) (42.2-75.2) % Lymph % (Auto) (20.5-50.1) % [place] % (Auto) (2-8) % Eos % (Auto) (1.0-3.0) % Baso % (Auto) (0.0-1.0) % Sodium (136-145) mmol/L Potassium (3.5-5.1) mmol/L Chloride (98-107) mmol/L Carbon Dioxide (21-32) mmol/L Anion Gap (7-13) mEq/L BUN (7-18) mg/dL Creatinine (0.70-1.30) mg/dL Est Cr Clr Drug Dosing mL/min Estimated GFR (MDRD) Glucose (70-99) mg/dL POC Glucose 202 H 97 64 L (70-99) mg/dL Calcium (8.5-10.1) mg/dL B-Natriuretic Peptide (0-100) pg/ml 06/25/21 06/25/21 06/26/21 Range/Units 20:28 21:40 02:50 WBC (5.0-10.0) 10^3/uL RBC (4.6-6.2) 10^6/uL Hgb (14.0-18.0) g/dL Hct (40.0-54.0) % MCV (80-100) fL MCH (27.0-34.0) pg MCHC (33.0-35.0) g/dL Plt Count (150-450) 10^3/uL Neut % (Auto) (42.2-75.2) % Lymph % (Auto) (20.5-50.1) % [place] % (Auto) (2-8) % Eos % (Auto) (1.0-3.0) % Baso % (Auto) (0.0-1.0) % Sodium (136-145) mmol/L Potassium (3.5-5.1) mmol/L Chloride (98-107) mmol/L Carbon Dioxide (21-32) mmol/L Anion Gap (7-13) mEq/L BUN (7-18) mg/dL Creatinine (0.70-1.30) mg/dL Est Cr Clr Drug Dosing mL/min Estimated GFR (MDRD) Glucose (70-99) mg/dL POC Glucose 78 100 H 252 H (70-99) mg/dL Calcium (8.5-10.1) mg/dL B-Natriuretic Peptide (0-100) pg/ml 06/26/21 06/26/21 06/26/21 Range/Units 05:50 05:50 07:45 WBC 8.1 (5.0-10.0) 10^3/uL RBC 5.00 (4.6-6.2) 10^6/uL Hgb 11.3 L (14.0-18.0) g/dL Hct 36.7 L (40.0-54.0) % MCV 73.4 L (80-100) fL MCH 22.6 L (27.0-34.0) pg MCHC 30.8 L (33.0-35.0) g/dL Plt Count 219 (150-450) 10^3/uL Neut % (Auto) 75.8 H (42.2-75.2) % Lymph % (Auto) 8.6 L (20.5-50.1) % [place] % (Auto) 10.6 H (2-8) % Eos % (Auto) 4.4 H (1.0-3.0) % Baso % (Auto) 0.6 (0.0-1.0) % Sodium 141 (136-145) mmol/L Potassium 4.4 (3.5-5.1) mmol/L Chloride 104 (98-107) mmol/L Carbon Dioxide 28 (21-32) mmol/L Anion Gap 13.4 H (7-13) mEq/L BUN 41 H (7-18) mg/dL Creatinine 1.32 H (0.70-1.30) mg/dL Est Cr Clr Drug Dosing 68.59 mL/min Estimated GFR (MDRD) 56 Glucose 302 H (70-99) mg/dL POC Glucose 226 H (70-99) mg/dL Calcium 8.5 (8.5-10.1) mg/dL B-Natriuretic Peptide 1020 H (0-100) pg/ml Med Orders - Current: Current Medications Acetaminophen (Acetaminophen 325 Mg Tab) 650 mg PO Q4H PRN PRN Reason: Pain (Mild 1-3)/fever Aspirin (Aspirin 81 Mg Tab.Ec) 81 mg PO DAILY [facility] Last Admin: 06/25/21 09:45 Dose: 81 mg Documented by: Atorvastatin Calcium (Atorvastatin 20 Mg Tab) 40 mg PO BEDTIME [facility] Last Admin: 06/25/21 20:22 Dose: 40 mg Documented by: Carvedilol (Carvedilol 6.25 Mg Tab) 6.25 mg PO BID [facility] Last Admin: 06/25/21 20:22 Dose: 6.25 mg Documented by: Clopidogrel Bisulfate (Clopidogrel 75 Mg Tab) 75 mg PO DAILY [facility] Last Admin: 06/25/21 09:45 Dose: 75 mg Documented by: Dextrose/Water (50% Dextrose In Water 50 Ml Syringe) 25 ml IVPUSH ASDIRECTED PRN PRN Reason: Hypoglycemia BS<70 Docusate Sodium (Docusate Sodium 100 Mg Cap) 100 mg PO BID PRN PRN Reason: Constipation Furosemide (Furosemide 20 Mg/2 Ml Vial) 40 mg IVPUSH Q8H [facility] Gabapentin (Gabapentin 400 Mg Cap) 400 mg PO DAILY [facility] Last Admin: 06/25/21 09:44 Dose: 400 mg Documented by: Heparin Sodium (Porcine) (Heparin Sodium 5,000 Units/Ml Vial) 5,000 units SUBCUT Q8HR [facility] Last Admin: 06/26/21 05:40 Dose: 5,000 units Documented by: Insulin Glargine (Insulin Glarg,Human.Rec.Analog 100 Unit/Ml) 27 unit SUBCUT BID [facility] Last Admin: 06/25/21 20:28 Dose: 27 units Documented by: Insulin Human Lispro (Insulin Lispro 100 Units/Ml 3 Ml Vial) 0 unit SUBCUT WITHMEALSANDBED [facility]; Protocol Last Admin: 06/25/21 20:29 Dose: Not Given Documented by: Insulin Human Lispro (Insulin Lispro 100 Units/Ml 3 Ml Vial) 8 unit SUBCUT TIDMEALS [facility] Last Admin: 06/25/21 17:12 Dose: 8 unit Documented by: Levothyroxine Sodium (Levothyroxine 112 Mcg Tab) 112 mcg PO DAILY [facility] Last Admin: 06/25/21 09:45 Dose: 112 mcg Documented by: Lorazepam (Lorazepam 0.5 Mg Tab) 1 mg PO Q6H PRN PRN Reason: Anxiety Last Admin: 06/26/21 01:01 Dose: 1 mg Documented by: Morphine Sulfate (Morphine 2 Mg/Ml Syringe) 2 mg IVPUSH Q2H PRN PRN Reason: Pain (severe 7-10) Omeprazole (Omeprazole 20 Mg Cap.Cr) 20 mg PO ACBREAKFAST [facility] Last Admin: 06/26/21 05:40 Dose: 20 mg Documented by: Ondansetron HCl (Ondansetron 4 Mg Tab.Dis) 4 mg PO Q6H PRN PRN Reason: nausea, able to take PO Last Admin: 06/26/21 02:54 Dose: 4 mg Documented by: Oxycodone HCl (Oxycodone 5 Mg Tab) 5 mg PO Q4H PRN PRN Reason: Pain (moderate 4-6) Potassium Chloride (Potassium Chloride 10 Meq Tab.Er) 20 meq PO BID [facility] Last Admin: 06/25/21 20:22 Dose: 20 meq Documented by: Sodium Chloride (Sodium Chloride 0.9% 10 Ml Syringe) 10 ml FLUSH ASDIRECTED PRN PRN Reason: Keep Vein Open Last Admin: 06/23/21 12:49 Dose: 10 ml Documented by: Temazepam (Temazepam 15 Mg Cap) 15 mg PO BEDTIME PRN PRN Reason: Sleep Last Admin: 06/25/21 20:22 Dose: 15 mg Documented by: Discontinued Medications Furosemide (Furosemide 20 Mg/2 Ml Vial) 20 mg IVPUSH .Q8H [facility] Furosemide (Furosemide 20 Mg/2 Ml Vial) 20 mg IVPUSH Q8H [facility] Last Admin: 06/26/21 03:30 Dose: 20 mg Documented by: Insulin Human Lispro (Insulin Lispro 100 Units/Ml 3 Ml Vial) 8 unit SUBCUT TID [facility] Last Admin: 06/23/21 12:48 Dose: 8 units Documented by: Iopamidol (Iopamidol 755 Mg/Ml 100 Ml Bottle) 100 ml IVPUSH ONETIME ONE Stop: 06/25/21 12:00 Last Admin: 06/25/21 12:26 Dose: 80 ml Documented by: Lorazepam (Lorazepam 0.5 Mg Tab) 0.5 mg PO Q6H PRN PRN Reason: Anxiety Last Admin: 06/23/21 14:39 Dose: 0.5 mg Documented by: Lorazepam (Lorazepam 1 Mg Tab) 1 mg PO ONETIME ONE Stop: 06/23/21 16:37 Last Admin: 06/23/21 16:53 Dose: 1 mg Documented by: Lorazepam (Lorazepam 2 Mg/Ml Sdv) 1 mg IVPUSH ONETIME ONE Stop: 06/26/21 05:27 Last Admin: 06/26/21 05:41 Dose: 1 mg Documented by: Potassium Chloride (Potassium Chloride 10 Meq Tab.Er) 40 meq PO ONETIME ONE Stop: 06/23/21 10:11 Last Admin: 06/23/21 10:27 Dose: 40 meq Documented by: Potassium Chloride (Potassium Chloride 10 Meq Tab.Er) 40 meq PO Q6H [facility] Stop: 06/24/21 00:01 Last Admin: 06/23/21 12:42 Dose: Not Given Documented by: Potassium Chloride (Potassium Chloride 10 Meq Tab.Er) 40 meq PO Q6H [facility] Stop: 06/24/21 04:01 Last Admin: 06/24/21 04:06 Dose: 40 meq Documented by: - Exam General: Alert Neck: Supple Lungs: Clear to Auscultation, Normal Respiratory Effort Cardiovascular: Regular Rate, Regular Rhythm GI/Abdominal Exam: Normal Bowel Sounds, Soft, Non-Tender Extremities: Pedal Edema (left 2+ ) - Patient Data Lab Results Last 24 hrs: Laboratory Results - last 24 hr 06/25/21 06/25/21 06/25/21 Range/Units 11:53 16:23 19:22 WBC (5.0-10.0) 10^3/uL RBC (4.6-6.2) 10^6/uL Hgb (14.0-18.0) g/dL Hct (40.0-54.0) % MCV (80-100) fL MCH (27.0-34.0) pg MCHC (33.0-35.0) g/dL Plt Count (150-450) 10^3/uL Neut % (Auto) (42.2-75.2) % Lymph % (Auto) (20.5-50.1) % [place] % (Auto) (2-8) % Eos % (Auto) (1.0-3.0) % Baso % (Auto) (0.0-1.0) % Sodium (136-145) mmol/L Potassium (3.5-5.1) mmol/L Chloride (98-107) mmol/L Carbon Dioxide (21-32) mmol/L Anion Gap (7-13) mEq/L BUN (7-18) mg/dL Creatinine (0.70-1.30) mg/dL Est Cr Clr Drug Dosing mL/min Estimated GFR (MDRD) Glucose (70-99) mg/dL POC Glucose 202 H 97 64 L (70-99) mg/dL Calcium (8.5-10.1) mg/dL B-Natriuretic Peptide (0-100) pg/ml 06/25/21 06/25/21 06/26/21 Range/Units 20:28 21:40 02:50 WBC (5.0-10.0) 10^3/uL RBC (4.6-6.2) 10^6/uL Hgb (14.0-18.0) g/dL Hct (40.0-54.0) % MCV (80-100) fL MCH (27.0-34.0) pg MCHC (33.0-35.0) g/dL Plt Count (150-450) 10^3/uL Neut % (Auto) (42.2-75.2) % Lymph % (Auto) (20.5-50.1) % [place] % (Auto) (2-8) % Eos % (Auto) (1.0-3.0) % Baso % (Auto) (0.0-1.0) % Sodium (136-145) mmol/L Potassium (3.5-5.1) mmol/L Chloride (98-107) mmol/L Carbon Dioxide (21-32) mmol/L Anion Gap (7-13) mEq/L BUN (7-18) mg/dL Creatinine (0.70-1.30) mg/dL Est Cr Clr Drug Dosing mL/min Estimated GFR (MDRD) Glucose (70-99) mg/dL POC Glucose 78 100 H 252 H (70-99) mg/dL Calcium (8.5-10.1) mg/dL B-Natriuretic Peptide (0-100) pg/ml 06/26/21 06/26/21 06/26/21 Range/Units 05:50 05:50 07:45 WBC 8.1 (5.0-10.0) 10^3/uL RBC 5.00 (4.6-6.2) 10^6/uL Hgb 11.3 L (14.0-18.0) g/dL Hct 36.7 L (40.0-54.0) % MCV 73.4 L (80-100) fL MCH 22.6 L (27.0-34.0) pg MCHC 30.8 L (33.0-35.0) g/dL Plt Count 219 (150-450) 10^3/uL Neut % (Auto) 75.8 H (42.2-75.2) % Lymph % (Auto) 8.6 L (20.5-50.1) % [place] % (Auto) 10.6 H (2-8) % Eos % (Auto) 4.4 H (1.0-3.0) % Baso % (Auto) 0.6 (0.0-1.0) % Sodium 141 (136-145) mmol/L Potassium 4.4 (3.5-5.1) mmol/L Chloride 104 (98-107) mmol/L Carbon Dioxide 28 (21-32) mmol/L Anion Gap 13.4 H (7-13) mEq/L BUN 41 H (7-18) mg/dL Creatinine 1.32 H (0.70-1.30) mg/dL Est Cr Clr Drug Dosing 68.59 mL/min Estimated GFR (MDRD) 56 Glucose 302 H (70-99) mg/dL POC Glucose 226 H (70-99) mg/dL Calcium 8.5 (8.5-10.1) mg/dL B-Natriuretic Peptide 1020 H (0-100) pg/ml Result Diagrams: 06/26/21 05:50 06/26/21 05:50 Sepsis Event Note - Evaluation Sepsis Screening Result: No Definite Risk - Focused Exam Vital Signs: Vital Signs Temp Pulse Resp BP BP Pulse Ox 06/26/21 07:55 97.5 F 101 H 20 129/84 99 06/26/21 03:15 97.5 F 94 22 H 126/84 100 06/26/21 00:00 97.7 F 95 20 126/83 100 - Problem List & Annotations (1) Acute exacerbation of CHF (congestive heart failure) SNOMED Code(s): 636001480, 38554439377564 Code(s): I50.9 - HEART FAILURE, UNSPECIFIED Status: Acute Current Visit: No Qualifiers: Heart failure type: unspecified Qualified Code(s): I50.9 - Heart failure, unspecified (2) Anxiety about health SNOMED Code(s): 414020586 Code(s): F41.8 - OTHER SPECIFIED ANXIETY DISORDERS Status: Acute Current Visit: No (3) CHF (congestive heart failure) SNOMED Code(s): 75004985 Code(s): I50.9 - HEART FAILURE, UNSPECIFIED Status: Acute Current Visit: No Qualifiers: Heart failure type: systolic Heart failure chronicity: chronic Qualified Code(s): I50.22 - Chronic systolic (congestive) heart failure (4) Diabetes SNOMED Code(s): 65693792 Code(s): E11.9 - TYPE 2 DIABETES MELLITUS WITHOUT COMPLICATIONS Status: Acute Current Visit: No Qualifiers: Diabetes mellitus type: type 2 Diabetes mellitus jail insulin use: with predatory animal exterminator use Diabetes mellitus complication status: without complication Qualified Code(s): E11.9 - Type 2 diabetes mellitus without complications; Z79.4 - skilled nursing (current) use of insulin (5) Hx of right BKA SNOMED Code(s): 481295227244918, 794924226940669 Code(s): Z89.511 - ACQUIRED ABSENCE OF RIGHT LEG BELOW KNEE Status: Acute Current Visit: No (6) Hypokalemia SNOMED Code(s): 33859976 Code(s): E87.6 - HYPOKALEMIA Status: Acute Current Visit: No (7) Hyponatremia SNOMED Code(s): 92434145 Code(s): E87.1 - HYPO-OSMOLALITY AND HYPONATREMIA Status: Acute Current Visit: No (8) NSTEMI (non-ST elevated myocardial infarction) SNOMED Code(s): 00876557 Code(s): I21.4 - NON-ST ELEVATION (NSTEMI) MYOCARDIAL INFARCTION Status: Acute Current Visit: No (9) Shortness of breath SNOMED Code(s): 229675618 Code(s): R06.02 - SHORTNESS OF BREATH Status: Acute Current Visit: No - Problem List Review Problem List Initiated/Reviewed/Updated: Yes - My Orders Last 24 Hours: My Active Orders 06/25/21 09:27 6 Minute Walk Test [OM.PC] Routine 06/26/21 09:23 Furosemide [Lasix] 40 mg IVPUSH Q8H 06/27/21 05:11 B-TYPE NATRIURETIC PEPTIDE,BNP [CHEM] AM BASIC METABOLIC PANEL,BMP [CHEM] AM CBC WITH AUTO DIFF [HEME] AM MAGNESIUM [CHEM] AM PHOSPHORUS [CHEM] AM 06/28/21 05:11 BASIC METABOLIC PANEL,BMP [CHEM] AM CBC WITH AUTO DIFF [HEME] AM 06/29/21 05:11 BASIC METABOLIC PANEL,BMP [CHEM] AM CBC WITH AUTO DIFF [HEME] AM - Plan Plan:: Chf, acute on chronic likely systolic given h/o cad continue to treat with IV Lasix increase Lasix Hold PO Torsemide and metolazone for now Check BNP in AM Follow elytes pleural effusion, pericardial effusion echo not available no apparent hemodynamic compromise will cont diuresis plan for cardiology visit on Friday d/w dr. Byrne - would benefit from echo Acute non st mi With elevated troponins Follow on tele stable troponin Plan for angiogram on Friday with improved fluid status Treat with asa, plavix, coreg, lipitor Hyponatremia Hypervolemic improved Follow with diuresis Fluid restriction Hypokalemia replaced Follow with diuretics DM Hold metformin Treat with levemir, humolog Follow BS qac+HS Supplemental insulin as needed Hypothyroidism cont levothyroxine dvt prophylaxis with sq heparin
[2021-06-26] MEDS: Insulin Lispro 100 Units/ML 3 ML Vial SUBCUT SCH ×7 (10:09→21:17)
[2021-06-26] MEDS: Potassium Chloride 10 MEQ Tab.ER PO SCH ×2 (10:15→20:21)
[2021-06-26] MEDS: Carvedilol 6.25 MG Tab PO SCH ×2 (10:15→20:21)
[2021-06-26] MEDS: Levothyroxine 112 MCG Tab PO SCH (10:15)
[2021-06-26] MEDS: Clopidogrel 75 MG Tab PO SCH (10:15)
[2021-06-26] MEDS: Aspirin 81 MG Tab.EC PO SCH (10:15)
[2021-06-26] MEDS: Gabapentin 400 MG Cap PO SCH (10:15)
[2021-06-26] MEDS: Insulin Glarg,Human.Rec.Analog 100 Unit/ML SUBCUT SCH ×2 (10:30→21:40)
[2021-06-26] MEDS: atorvaSTATin 20 MG Tab PO SCH (20:21)
[2021-06-26] MEDS: Temazepam 15 MG Cap PO PRN (20:21)
[2021-06-27] MEDS: Furosemide 20 MG/2 ML VIAL IVPUSH SCH ×2 (02:14→09:19)
[2021-06-27] MEDS: LORazepam 0.5 MG Tab PO PRN ×2 (02:20→08:59)
[2021-06-27] MEDS: Heparin Sodium 5,000 Units/ML Vial SUBCUT SCH (05:27)
[2021-06-27] MEDS: Omeprazole 20 MG Cap.CR PO SCH (05:27)
[2021-06-27 06:12] LABS: ANION GAP 14.5 mEq/L (7-13)
[2021-06-27] MEDS ORDERED: Aspirin 325 MG Tab PO ONE (08:04)
[2021-06-27] MEDS: Insulin Lispro 100 Units/ML 3 ML Vial SUBCUT SCH ×2 (08:52→08:54)
[2021-06-27] MEDS: Levothyroxine 112 MCG Tab PO SCH (08:55)
[2021-06-27] MEDS: Carvedilol 6.25 MG Tab PO SCH (08:56)
[2021-06-27] MEDS: Potassium Chloride 10 MEQ Tab.ER PO SCH (08:57)
[2021-06-27] MEDS: Clopidogrel 75 MG Tab PO SCH (08:58)
[2021-06-27] MEDS: Gabapentin 400 MG Cap PO SCH (08:58)
[2021-06-27 09:00] VITALS: BP 124/73; PULSE 97
[2021-06-27] MEDS: Insulin Glarg,Human.Rec.Analog 100 Unit/ML SUBCUT SCH (10:38)
--- NOTE | 2021-06-28 00:47 | DISCH ---
The patient admitted in the hospital on 06/23/2021 with diagnosis of congestive heart failure exacerbation and acute non-ST elevation myocardial infarction type 2. He was treated in the hospital with diuresis, Lasix IV. Also, he was treated with aspirin, Plavix, Coreg and statins assuming that his congestive heart failure exacerbation was due to ischemic heart disease. The patient is scheduled for cardiac cath today. The patient is supposed to follow today with software sales representative at [place], Dr. Byrne. His respiratory symptoms improved. The patient was not short of breath anymore. PHYSICAL EXAMINATION: HEENT: His head was atraumatic, normocephalic. Pupils equally reactive to light. Neck: Supple. No thyromegaly. No lymphadenopathy. Heart: S1, S2. Regular rhythm and rate. No murmur. Lungs: Clear to auscultation bilaterally. Abdomen: Soft, nontender. Positive bowel sounds. Extremities: Right lower extremity has below-knee amputation. Left extremity, there is 1+ pitting edema. DIAGNOSES AT ADMISSION: Congestive heart failure, acute on chronic, likely systolic due to history of coronary artery disease. Acute non-ST elevation myocardial infarction, diabetes mellitus, hypothyroidism, hypokalemia. DIAGNOSES AT DISCHARGE: Congestive heart failure, acute of chronic, likely systolic. Acute non-ST elevation myocardial infarction, hyponatremia, hypovolemia, hypokalemia, diabetes mellitus insulin dependent, hypothyroidism. LABORATORY DATA: At discharge, WBC 8.4, hemoglobin 10.9, hematocrit 35.4, and platelet count 215. Sodium 140, potassium 4.5, chloride 103, CO2 of 27, anion gap 14.5, BUN 43, creatinine 1.42. Glucose 75, calcium 8.4, phosphorus 5.3, magnesium 2.2. BNP 1310. Also patient has history of chronic kidney disease. Vital signs at discharge, his temperature was 98 Fahrenheit, pulse 95, blood pressure is 124/73, respiratory rate 20, and oxygen saturation 99 on 3 L nasal cannula. The patient during the night was desaturating in the 80s. He needs 3 L oxygen per minute nasal cannula to maintain his oxygen above 90. The patient was discharged home with oxygen. The patient was supposed to go today to [place] and have consult with Dr. Byrne. [facility] /[id number]
== END 2021-06-27 10:10 | disposition home or self-care (01) | DRG 280 ==
LOC: DL.ED 08:30 → DL.MS 11:05
PROVIDERS: ADMIT Internal Medicine; ATTEND Internal Medicine
DX: I11.0 Hypertensive heart disease with heart failure (principal); I50.23 Acute on chronic systolic (congestive) heart failure; I50.22 Chronic systolic (congestive) heart failure; I21.A1 Myocardial infarction type 2; E87.1 Hypo-osmolality and hyponatremia; Z95.5 Presence of coronary angioplasty implant and graft; I31.3 Pericardial effusion (noninflammatory); I25.10 Atherosclerotic heart disease of native coronary artery without angina pectoris; E87.6 Hypokalemia; E03.9 Hypothyroidism, unspecified; E86.1 Hypovolemia; E78.00 Pure hypercholesterolemia, unspecified; F41.8 Other specified anxiety disorders; E11.9 Type 2 diabetes mellitus without complications; Z79.82 Long term (current) use of aspirin; Z20.822 Contact with and (suspected) exposure to COVID-19; Z79.4 Long term (current) use of insulin; Z79.899 Other long term (current) drug therapy; Z95.0 Presence of cardiac pacemaker; Z89.511 Acquired absence of right leg below knee; M19.90 Unspecified osteoarthritis, unspecified site; Z79.02 Long term (current) use of antithrombotics/antiplatelets; Z79.890 Hormone replacement therapy
CPT/HCPCS: 36415; 71045; 80053; 83605; 83735; 83880; 84484; 85025; 87635; 93005; 99285; A9270; 71260; 80048; 82947; 84100; 85379; J1644; J1815-GY; J1940; J2060; Q9967; U0002

== ENCOUNTER 2021-09-24 16:03 | Emergency (ER) | payer MEDICAID ==
[2021-09-24 16:20] VITALS: BP 117/78; PULSE 80
[2021-09-24 17:11] LABS: ANION GAP 10.6 mEq/L (7-13)
[2021-09-24] MEDS ORDERED: Lidocaine 1% 30 ML SDV INJECT ONE (17:19)
[2021-09-24] MEDS ORDERED: Potassium Chloride 20 MEQ in Premix Bag 1 BAG IV ONE (17:19)
[2021-09-24] MEDS ORDERED: Sodium Chloride 0.9% 500 ML IV ONE (17:19)
[2021-09-24] MEDS ORDERED: Potassium Chloride 10 MEQ Tab.ER PO ONE (17:38)
[2021-09-24] MEDS ORDERED: Doxycycline Monohydrate 100 MG Cap PO ONE (17:39)
[2021-09-24] MEDS ORDERED: Sodium Chloride 0.9% 1,000 ML IV SCH (17:45)
[2021-09-24 20:58] LABS: ANION GAP 9.4 mEq/L (7-13)
== END 2021-09-24 21:21 | disposition home or self-care (01) ==
LOC: DL.ED 16:03
DX: E87.6 Hypokalemia (principal); E78.00 Pure hypercholesterolemia, unspecified; I11.0 Hypertensive heart disease with heart failure; I50.9 Heart failure, unspecified; E11.9 Type 2 diabetes mellitus without complications; Z79.82 Long term (current) use of aspirin; Z79.4 Long term (current) use of insulin; Z79.899 Other long term (current) drug therapy
CPT/HCPCS: 36415; 80048; 96365; 96366; 99285; A9270; J3480; J7030

== ENCOUNTER 2021-10-31 08:59 | Emergency (ER) | payer MEDICAID ==
[2021-10-31] MEDS ORDERED: diphenhydrAMINE 25 MG Tab PO ONE (09:39)
[2021-10-31 09:50] VITALS: BP 129/94; PULSE 102
[2021-10-31 10:22] LABS: ANION GAP 9.1 mEq/L (7-13)
[2021-10-31 10:23] LABS: AMPHETAMINES,URINE NEGATIVE (NEGATIVE); BARBITURATES,URINE NEGATIVE (NEGATIVE); BENZODIAZEPINE,URINE NEGATIVE (NEGATIVE); MDMA (ECSTASY), URINE NEGATIVE (NEGATIVE); METHADONE,URINE NEGATIVE (NEGATIVE); METHAMPHETAMINES,URINE NEGATIVE (NEGATIVE); OPIATES,URINE NEGATIVE (NEGATIVE); OXYCODONE,URINE NEGATIVE (NEGATIVE); PHENCYCLIDINE,URINE NEGATIVE (NEGATIVE); TCA,URINE NEGATIVE (NEGATIVE)
[2021-10-31] MEDS ORDERED: Aspirin 81 MG Tab.Chew PO ONE (10:30)
[2021-10-31 10:31] LABS: RESPIRATORY SYNCYTIAL VIR NAA NEGATIVE (NEGATIVE)
[2021-10-31 10:35] LABS: CORONAVIRUS COVID-19 NAA POSITIVE (NEGATIVE)
[2021-10-31] MEDS ORDERED: Iopamidol 755 Mg/ML 100 ML Bottle IVPUSH ONE (11:05)
== END 2021-10-31 12:45 ==
LOC: DL.ED 08:59
DX: U07.1 COVID-19 (principal); I31.3 Pericardial effusion (noninflammatory); R77.8 Other specified abnormalities of plasma proteins; E11.22 Type 2 diabetes mellitus with diabetic chronic kidney disease; I13.0 Hypertensive heart and chronic kidney disease with heart failure and stage 1 through stage 4 chronic kidney disease, or unspecified chronic kidney disease; N18.9 Chronic kidney disease, unspecified; I50.9 Heart failure, unspecified; R91.1 Solitary pulmonary nodule; E78.00 Pure hypercholesterolemia, unspecified; Z79.82 Long term (current) use of aspirin; Z79.4 Long term (current) use of insulin; Z79.899 Other long term (current) drug therapy; Z79.02 Long term (current) use of antithrombotics/antiplatelets; Z89.511 Acquired absence of right leg below knee
CPT/HCPCS: 0241U; 36415; 71045; 71260; 80053; 80305-QW; 81001; 83605; 83880; 84443; 84484; 85025; 85379; 86140; 93005; 93010; 99284; 99285-25; A9270-GY; Q9967

== ENCOUNTER 2021-12-26 12:33 | Inpatient (IN) | payer MEDICAID ==
[2021-12-26] MEDS ORDERED: Sodium Chloride 0.9% 10 ML Syringe FLUSH PRN (13:06)
[2021-12-26 14:14] LABS: ANION GAP 12.4 mEq/L (7-13); CHLORIDE,CL 83 mmol/L (98-107)
[2021-12-26 14:28] LABS: SODIUM,NA 119 mmol/L (136-145)
[2021-12-26 14:29] LABS: ESTIMATED GFR 25 mL/min (>=60)
[2021-12-26] MEDS ORDERED: Glucagon,Human Recombinant 1 MG Vial IM PRN (14:43)
[2021-12-26] MEDS ORDERED: Furosemide 100 MG/10 ML SDV IVPUSH ONE (14:43)
[2021-12-26] MEDS ORDERED: 50% Dextrose in Water 50 ML Syringe IVPUSH PRN (14:43)
[2021-12-26] MEDS ORDERED: Sodium Chloride 0.45% 1,000 ML IV SCH (14:45)
[2021-12-26] MEDS ORDERED: Heparin Sodium 5,000 Units/ML Vial IVPUSH ONE (16:20)
[2021-12-26] MEDS: Heparin Sodium/0.45% NaCl 25,000 UNITS/500 ML BAG IV SCH (16:29)
[2021-12-26 17:59] LABS: CORONAVIRUS COVID-19 NAA NEGATIVE (NEGATIVE)
[2021-12-26 18:10] LABS: PTT,PARTIAL THROMBOPLSTIN TIME > 120.0 SEC (22.0-34.0)
[2021-12-26] MEDS ORDERED: Bisacodyl 5 MG Tab PO PRN (18:10)
[2021-12-26] MEDS ORDERED: Ondansetron 4 MG/2 ML SDV IVPUSH PRN (18:10)
[2021-12-26] MEDS ORDERED: Acetaminophen 325 MG Tab PO PRN (18:10)
[2021-12-26] MEDS ORDERED: HYDROmorphone 0.5 MG/0.5 ML Syringe IVPUSH PRN (18:10)
[2021-12-26] MEDS ORDERED: Albuterol/Ipratropium 3.0-0.5 MG/3 ML Neb Soln NEB PRN (18:10)
[2021-12-26] MEDS ORDERED: Morphine 2 MG/ML SYRINGE IVPUSH PRN (18:10)
[2021-12-26] MEDS ORDERED: Zolpidem 5 MG Tab PO PRN (18:10)
[2021-12-26] MEDS ORDERED: Docusate Sodium 100 MG Cap PO PRN (18:10)
[2021-12-26] MEDS ORDERED: Acetaminophen/HYDROcodone 325-5 MG Tab PO PRN (18:10)
[2021-12-26] MEDS ORDERED: Polyethylene Glycol 3350 Powder 17 GM Packet PO PRN (18:10)
[2021-12-26] MEDS ORDERED: Melatonin 3 MG Tab PO PRN (18:25)
[2021-12-26] MEDS ORDERED: Potassium Chloride 10 MEQ Tab.ER PO ONE (18:35)
[2021-12-26] MEDS ORDERED: Aspirin 81 MG Tab.Chew PO ONE (19:20)
[2021-12-26] MEDS ORDERED: Clopidogrel 75 MG Tab PO ONE (19:21)
[2021-12-26] MEDS: Sodium Chloride 0.9% 1,000 ML IV SCH (19:40)
[2021-12-26] MEDS ORDERED: Metoprolol Tartrate 5 MG/5 ML SDV IVPUSH PRN (19:58)
[2021-12-26] MEDS ORDERED: hydrALAZINE 20 MG/ML SDV IVPUSH PRN (19:58)
[2021-12-26] MEDS ORDERED: Nitroglycerin 0.4 MG Tab.SL SL PRN (19:59)
[2021-12-26] MEDS ORDERED: Potassium Chloride 10 MEQ Tab.ER PO SCH (21:00)
[2021-12-26 21:22] LABS: ANION GAP 10.4 mEq/L (7-13)
[2021-12-26] MEDS ORDERED: Ziprasidone Mesylate 20 MG Vial IM ONE (22:53)
[2021-12-26] MEDS ORDERED: diphenhydrAMINE 50 MG/ML SDV IVPUSH ONE (22:53)
[2021-12-26] MEDS ORDERED: Water For Injection, Sterile 20 ML ONE (23:00)
[2021-12-27] MEDS: Sodium Chloride 0.9% 1,000 ML IV SCH (00:53)
[2021-12-27] MEDS ORDERED: Heparin Sodium 5,000 Units/ML Vial IVPUSH ONE (02:57)
[2021-12-27 07:12] LABS: ANION GAP 13.4 mEq/L (7-13)
[2021-12-27] MEDS ORDERED: Potassium Chloride 10 MEQ Tab.ER PO ONE (07:26)
[2021-12-27] MEDS: Metolazone 2.5 MG Tab PO SCH ×2 (08:44→21:38)
[2021-12-27] MEDS: Insulin Lispro 100 Units/ML 3 ML Vial SUBCUT SCH ×4 (08:47→17:16)
[2021-12-27] MEDS ORDERED: Insulin Glarg,Human.Rec.Analog 100 Unit/ML SUBCUT SCH ×2 (09:00→21:00)
[2021-12-27] MEDS ORDERED: Albumin Human 25 GM in Premix Bag 1 BAG IV ONE (10:30)
[2021-12-27] MEDS ORDERED: Bumetanide 1 MG/4 ML MDV IVPUSH ONE (12:00)
[2021-12-27] MEDS: Heparin Sodium/0.45% NaCl 25,000 UNITS/500 ML BAG IV SCH (14:21)
[2021-12-27] MEDS ORDERED: Glucagon,Human Recombinant 1 MG Vial IM PRN (17:10)
[2021-12-27] MEDS ORDERED: 50% Dextrose in Water 50 ML Syringe IVPUSH PRN (17:10)
[2021-12-27] MEDS ORDERED: Melatonin 3 MG Tab PO PRN (17:23)
[2021-12-27 17:26] LABS: ANION GAP 9.9 mEq/L (7-13)
[2021-12-27] MEDS ORDERED: Docusate Sodium 100 MG Cap PO PRN (18:18)
[2021-12-27] MEDS ORDERED: Nitroglycerin 0.4 MG Tab.SL SL PRN (18:18)
[2021-12-27] MEDS: DULoxetine 30 MG Cap PO SCH (21:39)
[2021-12-27] MEDS: Gabapentin 300 MG Cap PO SCH (21:39)
[2021-12-27] MEDS: Bumetanide 1 MG Tab PO SCH (21:40)
[2021-12-27] MEDS: atorvaSTATin 20 MG Tab PO SCH (21:40)
[2021-12-27] MEDS: QUEtiapine 100 MG Tab PO SCH (21:40)
[2021-12-27] MEDS: Carvedilol 3.125 MG Tab PO SCH (21:41)
[2021-12-27] MEDS: Insulin Glarg,Human.Rec.Analog 100 Unit/ML SUBCUT SCH (21:43)
[2021-12-28] MEDS: Levothyroxine 112 MCG Tab PO SCH (06:43)
[2021-12-28 07:08] LABS: ANION GAP 9.4 mEq/L (7-13)
[2021-12-28] MEDS: Gabapentin 300 MG Cap PO SCH ×2 (09:57→20:45)
[2021-12-28] MEDS: DULoxetine 30 MG Cap PO SCH ×2 (09:58→20:44)
[2021-12-28] MEDS: Aspirin 81 MG Tab.EC PO SCH (09:58)
[2021-12-28] MEDS: Bumetanide 1 MG Tab PO SCH ×2 (09:58→20:45)
[2021-12-28] MEDS: Pantoprazole 40 MG Tab.CR PO SCH (09:58)
[2021-12-28] MEDS: Metolazone 2.5 MG Tab PO SCH ×2 (09:58→20:44)
[2021-12-28] MEDS: Clopidogrel 75 MG Tab PO SCH (09:58)
[2021-12-28] MEDS: Cholecalciferol (Vitamin D3) 25 MCG Tab PO SCH (09:58)
[2021-12-28] MEDS: Multivitamin Tab PO SCH (09:59)
[2021-12-28] MEDS: Insulin Lispro 100 Units/ML 3 ML Vial SUBCUT SCH ×3 (09:59→18:01)
[2021-12-28] MEDS: Insulin Glarg,Human.Rec.Analog 100 Unit/ML SUBCUT SCH (10:01)
[2021-12-28] MEDS: Carvedilol 3.125 MG Tab PO SCH ×2 (10:03→20:45)
[2021-12-28] MEDS: Potassium Chloride 10 MEQ Tab.ER PO SCH ×2 (10:08→18:04)
[2021-12-28] MEDS ORDERED: Albumin Human 50 GM in Premix Bag 1 BAG IV ONE (12:00)
[2021-12-28] MEDS: atorvaSTATin 20 MG Tab PO SCH (20:44)
[2021-12-28] MEDS: Heparin Sodium 5,000 Units/ML Vial SUBCUT SCH (20:45)
[2021-12-28] MEDS: QUEtiapine 100 MG Tab PO SCH (20:46)
[2021-12-28] MEDS ORDERED: Insulin Glarg,Human.Rec.Analog 100 Unit/ML SUBCUT SCH (21:00)
[2021-12-29] MEDS: Levothyroxine 112 MCG Tab PO SCH (05:01)
[2021-12-29] MEDS ORDERED: Glucagon,Human Recombinant 1 MG Vial IM PRN (07:48)
[2021-12-29] MEDS ORDERED: 50% Dextrose in Water 50 ML Syringe IVPUSH PRN (07:48)
[2021-12-29] MEDS ORDERED: Insulin Lispro 100 Units/ML 3 ML Vial SUBCUT PRN (08:11)
[2021-12-29] MEDS ORDERED: Insulin Glarg,Human.Rec.Analog 100 Unit/ML SUBCUT SCH ×2 (09:00→21:00)
[2021-12-29] MEDS: DULoxetine 30 MG Cap PO SCH ×2 (09:36→21:25)
[2021-12-29] MEDS: Metolazone 2.5 MG Tab PO SCH ×2 (09:37→21:25)
[2021-12-29] MEDS: Heparin Sodium 5,000 Units/ML Vial SUBCUT SCH ×2 (09:40→21:26)
[2021-12-29] MEDS: Bumetanide 1 MG Tab PO SCH ×2 (09:40→21:26)
[2021-12-29] MEDS: Gabapentin 300 MG Cap PO SCH ×2 (09:40→21:25)
[2021-12-29] MEDS: Potassium Chloride 10 MEQ Tab.ER PO SCH ×2 (09:41→17:45)
[2021-12-29] MEDS: Clopidogrel 75 MG Tab PO SCH (09:43)
[2021-12-29] MEDS: Carvedilol 3.125 MG Tab PO SCH ×2 (09:43→21:26)
[2021-12-29] MEDS: Aspirin 81 MG Tab.EC PO SCH (09:46)
[2021-12-29] MEDS: Cholecalciferol (Vitamin D3) 25 MCG Tab PO SCH (09:46)
[2021-12-29] MEDS: Pantoprazole 40 MG Tab.CR PO SCH (09:46)
[2021-12-29] MEDS: Multivitamin Tab PO SCH (09:46)
[2021-12-29] MEDS: Insulin Glarg,Human.Rec.Analog 100 Unit/ML SUBCUT SCH ×2 (09:56→21:27)
[2021-12-29] MEDS: Insulin Lispro 100 Units/ML 3 ML Vial SUBCUT SCH ×3 (10:46→17:03)
[2021-12-29] MEDS ORDERED: Potassium Chloride 10 MEQ Tab.ER PO ONE (12:00)
[2021-12-29] MEDS: atorvaSTATin 20 MG Tab PO SCH (21:25)
[2021-12-29] MEDS: QUEtiapine 100 MG Tab PO SCH (21:25)
[2021-12-30] MEDS: Levothyroxine 112 MCG Tab PO SCH (05:57)
[2021-12-30 08:07] LABS: ANION GAP 13.4 mEq/L (7-13)
[2021-12-30] MEDS: Aspirin 81 MG Tab.EC PO SCH (08:32)
[2021-12-30] MEDS: Gabapentin 300 MG Cap PO SCH (08:32)
[2021-12-30] MEDS: Insulin Glarg,Human.Rec.Analog 100 Unit/ML SUBCUT SCH (08:32)
[2021-12-30] MEDS: Pantoprazole 40 MG Tab.CR PO SCH (08:32)
[2021-12-30] MEDS: Cholecalciferol (Vitamin D3) 25 MCG Tab PO SCH (08:32)
[2021-12-30] MEDS: Clopidogrel 75 MG Tab PO SCH (08:32)
[2021-12-30] MEDS: Multivitamin Tab PO SCH (08:32)
[2021-12-30] MEDS: DULoxetine 30 MG Cap PO SCH (08:32)
[2021-12-30] MEDS: Midodrine 2.5 MG Tab PO PRN ×2 (08:32→13:59)
[2021-12-30] MEDS: Potassium Chloride 10 MEQ Tab.ER PO SCH ×2 (08:32→17:56)
[2021-12-30] MEDS: Heparin Sodium 5,000 Units/ML Vial SUBCUT SCH (08:33)
[2021-12-30] MEDS: Insulin Lispro 100 Units/ML 3 ML Vial SUBCUT SCH ×3 (08:33→16:57)
[2021-12-30] MEDS: Carvedilol 3.125 MG Tab PO SCH (08:34)
[2021-12-30] MEDS: Bumetanide 1 MG Tab PO SCH (08:34)
[2021-12-30] MEDS: Metolazone 2.5 MG Tab PO SCH (08:34)
[2021-12-30] MEDS ORDERED: DOPamine/Dextrose 5%-Water 400 MG/250 ML BAG IV SCH (14:15)
[2021-12-30] MEDS ORDERED: DOBUTamine/Dextrose 5%-Water 250 MG/250 ML BAG IV SCH (15:00)
[2021-12-30] MEDS ORDERED: Albumin Human 50 GM in Premix Bag 1 BAG IV ONE (15:31)
[2021-12-30] MEDS ORDERED: Sodium Chloride 0.9% 250 ML IV SCH (18:00)
[2021-12-30 23:31] VITALS: BP 117/85; PULSE 66
== END 2021-12-30 21:00 | DRG 280 ==
LOC: DL.ED 12:33 → DL.MS 16:45 → UNDOADMIN 16:45 → DL.MS 12-28 16:59
PROVIDERS: ADMIT Internal Medicine; ATTEND Internal Medicine
DX: I50.9 Heart failure, unspecified (principal); I13.0 Hypertensive heart and chronic kidney disease with heart failure and stage 1 through stage 4 chronic kidney disease, or unspecified chronic kidney disease; I21.4 Non-ST elevation (NSTEMI) myocardial infarction; I50.23 Acute on chronic systolic (congestive) heart failure; Z95.0 Presence of cardiac pacemaker; Z79.02 Long term (current) use of antithrombotics/antiplatelets; R57.0 Cardiogenic shock; Z79.890 Hormone replacement therapy; E87.1 Hypo-osmolality and hyponatremia; N17.9 Acute kidney failure, unspecified; I48.92 Unspecified atrial flutter; E11.65 Type 2 diabetes mellitus with hyperglycemia; D50.9 Iron deficiency anemia, unspecified; N18.31 Chronic kidney disease, stage 3a; E87.6 Hypokalemia; E88.09 Other disorders of plasma-protein metabolism, not elsewhere classified; R33.9 Retention of urine, unspecified; K59.09 Other constipation; I25.2 Old myocardial infarction; E78.00 Pure hypercholesterolemia, unspecified; E78.5 Hyperlipidemia, unspecified; E03.9 Hypothyroidism, unspecified; Z20.822 Contact with and (suspected) exposure to COVID-19; M19.90 Unspecified osteoarthritis, unspecified site; Z89.511 Acquired absence of right leg below knee; Z79.82 Long term (current) use of aspirin; Z86.16 Personal history of COVID-19; Z95.810 Presence of automatic (implantable) cardiac defibrillator; Z95.5 Presence of coronary angioplasty implant and graft; Z79.899 Other long term (current) drug therapy; Z79.4 Long term (current) use of insulin
CPT/HCPCS: 0240U; 36415; 51702; 71045; 71250; 80048; 80053; 80061; 80307; 81001; 82009; 82306; 82947; 83036; 83735; 83880; 84132; 84439; 84443; 84484; 85025; 85610; 85730; 87040; 93005; 93306; 94010; A9270-GY; J1170; J1200; J1250; J1644; J1815-GY; J1940; J3486; J3490; J7030; J7050; P9047